=== PATIENT | female | born 1995 | race Asian ===

== ENCOUNTER 2023-12-11 07:54 | Inpatient (IN) ==
--- OUTSIDE RECORDS SUMMARY | 2023-12-11 08:34 | External Medical Summary ---
Author Name Unknown Address Unknown Organization [id number][facility] [address] [place] [address] Laboratory Report Ordering Provider Test Date Status RAMON LLOYD 11/21/2023 14:10:40 Final Observation Date Value Abnormality Reference (Units ) Status WBC, Total 11/21/2023 14:10:40 8.98 4.00-10.8 0 (K/uL) Final RBC 11/21/2023 14:10:40 4.23 3.85-5.15 (M/uL) Final Hemoglobin 11/21/2023 14:10:40 11.5 Below low normal 12 .0-15.3 (g/dL) Final HCT 11/21/2023 14:10:40 35.8 Below low normal 36. 0-45.2 (%) Final MCV 11/21/2023 14:10:40 84.6 81.5-97.5 (fL) Final MCH 11/21/2023 14:10:40 27.2 27.0-34.0 (pg) Final MCHC 11/21/2023 14:10:40 32.1 32.0-36.0 (g/dL) Final RDW 11/21/2023 14:10:40 19.7 11.5-15.5 (%) Final Platelets 11/21/2023 14:10:40 222 140-400 (K /uL) Final MPV 11/21/2023 14:10:40 11.3 6.6-11.1 ( fL) Final Per[facility] Location [facility] [address] [place] [address]
--- OUTSIDE RECORDS SUMMARY | 2023-12-11 08:34 | External Medical Summary ---
Author Name Unknown Address Unknown Organization : Laboratory Report Ordering Provider Test Date Status BRIDGETTE LLOYDJOSIANE 11/21/2023 14:10:40 Final Observation Date Value Abnormality Reference (Units ) Status Bile acid [Moles/volume] in Serum --fasting 11/21/2023 14:10:40 SEE BELOW Final TESTS--------- ----RESULTS--------UNITS--REF. RANGE---
Cholic Acid 0.5 umol/L < OR = 1.8
Deoxycholic Acid <0.5 umol/L < OR = 2.4
Chenodeoxycholic Acid <0.5 umol/L < OR = 3.1
Total Bile Acids <1.5 umol/L < OR = 6.8
This test was developed and its analytical
performance characteristics have been determined
by [employer] [facility]. It has not been cleared or
approved by FDA. This assay has been validated
pursuant to the CLIA regulations and is used for
clinical purposes.
Test performed by [facility]
[address],
[place] [address]

Water Main Installer Helper: Nini Fernnádez MD,PHD,SHIRAZ Performing Location
--- OUTSIDE RECORDS SUMMARY | 2023-12-11 08:34 | External Medical Summary ---
Author Name Unknown Address Unknown Organization [id number]:LABORATORY [facility] [address] - [address] [place] [address] Laboratory Report Ordering Provider Test Date Status RAMON LLOYD 11/21/2023 14:10:40 Final Observation Date Value Abnormality Reference (Units ) Status Albumin 11/21/2023 14:10:40 3.5 Below low normal 3.8-5.0 (g/dL) Final AST (Aspartate aminotransferase) 11/21/2023 14:10:40 16 10-35 (U/L) Final Alk Phos 11/21/2023 14:10:40 170 Above high normal 35-130 (U/L) Final ALT (Alanine aminotransferase) 11/21/2023 14:10:40 11 10-35 (U/L) Final Bilirubin, Total 11/21/2023 14:10:40 0.2 <=1.2 (mg/dL) Final Bilirubin, Direct 11/21/2023 14:10:40 <0.2 0.0-0.3 (mg/dL) Final Protein 11/21/2023 14:10:40 6.0 6.0-8.3 (g/dL) Final Performing Location [facility]ATORY [facility] [address] [place] [address]
--- OUTSIDE RECORDS SUMMARY | 2023-12-11 08:34 | External Medical Summary ---
Author Name Unknown Address Unknown Organization [id number]:[facility] [place] [address] [place] [address] Laboratory Report Ordering Provider Test Date Status JOSIE HUNT 11/07/2023 13:09:58 Final Observation Date Value Abnormality Reference (Units ) Status Folic Acid 11/07/2023 13:09:58 >20.0 >4.5 (ng/ mL) Final Performing Location [facility] [place] [address] [place] [address]
--- OUTSIDE RECORDS SUMMARY | 2023-12-11 08:34 | External Medical Summary ---
Author Name Unknown Address Unknown Organization [id number]:[facility] [place] [address] [place] [address] Laboratory Report Ordering Provider Test Date Status JOSIE HUNT 11/07/2023 13:09:58 Final Observation Date Value Abnormality Reference (Units ) Status Iron 11/07/2023 13:09:58 89 33-151 (ug/dL) Final Iron-binding capacity 11/07/2023 13:09:58 555 Above high normal 250-425 (ug/dL) Final Transferrin Sat % 11/07/2023 13:09:58 16 15-55 (%) Final Performing Location [facility] [place] [address] [place] [address]
--- OUTSIDE RECORDS SUMMARY | 2023-12-11 08:34 | External Medical Summary | Summary of Care ---
Author Name Unknown Organization [facility] Address [address] [place] [address] Phone [phone] Care Team Providers Care Paper Pattern Inspector Name Role Phone Wayne López MD Primary Care Provider [phone] Reason for Visit * Reason Comments Return Visit Encounter Details Date Type Department Care Team (Late st Contact Info) Description 11/07/2023 1:30 PM EDT Office Visit Gynecology/Obstetric s [place] [address] [place] [address] [facility]mitz CR[facility] [address] [facility] [address] Encounter for supervision of normal first in third trimester*; Antepartum anemia complicating ; Encounter for supervision of normal first in first trimester; Nausea and vomiting during Allergies Active Allergy Reactions Criticality Noted Date Comments Cheese 07/19/2019 Upset stomach, sleepy, low bp, itchy skin, rash on face, constipation, pale Garlic 07/19/2019 Rash, itchy, stomach upset documented as of this encounter (statuses as of 11/07/2023) Medications Medication Sig Dispensed Refills Start Date End Date Status KP Multivitamins 28-0.8 MG Oral Tablet Take by mouth. Active Breast Pump Dispense double electric breast pump. Dx:Z39.1 1 Each 10/24/2023 Active Promethazine HCl 25 MG Oral Tablet (Phenergan)Indicati ons:Encounter for supervision of normal first in first trimester,Nausea and vomiting during Take 1 Tablet by mouth every 6 hours as needed for Nausea. 30 Tablet 1 11/07/2023 Active Promethazine HCl 25 MG Oral Tablet (Phenergan)Indicati ons:Encounter for supervision of normal first in first trimester,Nausea and vomiting during Take 1 Tablet by mouth every 6 hours as needed for Nausea. 30 Tablet 1 09/12/2023 11/07/2023 Discontinue d(Refill) documented as of this encounter (statuses as of 11/07/2023) Active Problems Problem Noted Date Diagnosed Date Iron deficiency anemia 09/14/2023 Antepartum anemia complicating 024 Overview: Hgb 8.3 at 28w. Recommend iron infusions , normal first 05/24/2023 Alopecia areata 10/11/2020 Lactose intolerance 01/20/2020 Estimated Date of Delivery Comme nts Yes 12/05/2023 Based on last me nstrual period of 02/28/2023 documented as of this encounter (statuses as of 11/07/2023) Resolved Problems Problem Noted Date Diagnosed Date Resolved Date Choroid plexus cysts, , affecting care of mother, antepartum 08/01/2023 09/12/2023 Last Assessment & Plan: I reviewed the ultrasound with her. The anatomy that was visualized appears unremarkable and I did not see any choroid plexus cyst. The biometry is appropriate for the gestational age and the amniotic fluid volume is subjectively normal. The fetus is in the vertex presentation. I reviewed my interpretation of her ultrasound that she had a Radiology, as well as her low risk noninvasive screen. At this point, there is no clinical indication for return. Keratosis pilaris 01/20/2020 09/15/2020 documented as of this encounter (statuses as of 11/07/2023) Immunizations Name Administration Dates Next Due Covid-19 Ad26, Single Dose ([place]/J&J) 021 Seasonal Influenza Virus Vac cine, Unspecified Formulation 05/12/2020 Seasonal Influenza, PF, 6 M & above, IM , (FluLaval or Fluzone) 05/12/2020 TDAP (age 10 and older)(Boostrix) 09/12/2023 documented as of this encounter Social History Tobacco Use Types Packs/Day Years Used Date Smoking Tobacco: Never Smokeless Tobacco: Never Comments:no passive smoke Alcohol Use Standard Drinks/Week Comments Never 0 (1 standard drink = 0.6 oz pur e alcohol) AUDIT-C Answer Date Recorded Frequency of Alcohol Consumption Never 01/20/2020 Average Number of Drinks Not on file 020 Frequency of Binge Drinking Not on file 01/10 PHQ-2 Answer Date Recorded PHQ Adult Total Score 0 09/12/2023 Hunger Vital Sign Answer Date Recorded Within the past 12 months, y ou worried that your food would run out before you got the money to buy more. Never true 04/26/20 23 Within the past 12 months, t he food you bought just didn't last and you didn't have money to get more. Never true 04/26/2023 [place] Depression Scale Answer Date Recorded [place] Depression Scale Total 0 09/12/2023 The thought of harming myself has occurred to me . Never 09/12/2023 Estimated Date of Delivery Comme nts Yes 12/05/2023 Based on last me nstrual period of 02/28/2023 Sex and Gender Information Value Date Recorded Sex Assigned at Female 08/07/2019 4:39 PM EST Gender Identity Female 08/07/2019 4:39 PM EST Sexual Orientation Straight 08/07/2019 4: 39 PM EST Job Start Date Occupation Industry Not on file Not on file Not on file documented as of this encounter Last Filed Vital Signs Vital Sign Reading Time Taken Comments Blood Pressure 102/60 11/07/2023 1:15 PM EDT Pulse - - Temperature - - Respiratory Rate - - Oxygen Saturation - - Inhaled Oxygen Concentration - - Weight 64.9 kg (143 lb) 11/07/2023 1:15 PM EDT Height 157.5 cm (5' 2") 11/07/2023 1:15 PM EDT Body Mass Index 26.16 11/07/2023 1:15 PM EDT documented in this encounter Progress Notes * Mya Schmitz CRNP - 11/07/2023 1:40 PM EDT 36w Some BH contractions. Baby is moving well, discussed kick counts. No bleeding or LOF. GBS today. Clerical Adviser Documentation Provider requested rehab liaison. Name of rehab liaison: STORM Ceja documented in this encounter Plan of Treatment Upcoming Encounters Date Type Department Care Team (Late st Contact Info) Description 11/08/2023 9:30 AM EDT Pharmacy Pharmacy, [place] [address] [place] [address] Clinic, [facility] [address] [place] [address] 11/14/2023 1:30 PM EDT Office Visit Gynecology/Obstetrics [facility] [address] [place] [address] Mya Schmitz CRNP [address] [place] [address] 11/21/2023 1:30 PM EDT Office Visit Gynecology/Obstetrics [facility] [address] [place], [place] [address] Mya Schmitz CRNP [address] [place] [address] 11/28/2023 1:30 PM EDT Office Visit Gynecology/Obstetrics [facility] [address] [place] [address] Mya Schmitz CRNP [address] [place] [address] Pending Results Name Type Priority Associated Diagnoses Date /Time GROUP B STREP CULTURE/PCR Lab Routine Encounter for supervision of normal first in third trimester 11/07/2023 1:59 PM EDT Scheduled Orders Name Type Priority Associated Diagnoses Orde r Schedule GROUP B STREP CULTURE/PCR Lab Routine Encounter for supervision of normal first in third trimester Expected: 11/07/2023, Expires: 11/06/2024 Health Maintenance Due Date Last Done Comments Hepatitis B (1 of 3 - 19+ 3-dose series) 01/02/2012 COVID-19 Vaccine (2 - 2023-2 4 season) 2023 09/21/2020 Influenza Vaccine (FLU shot) (Season Ended) 2024 05/12/2020, 05/12/2020 Depression Screening 09/11/2024 09/12/2023 Pap Smear 04/26/2026 04/26/2023, 05/12/2020 Cervical Cancer Screening 04/26/2028 HPV/Co-Test 04/26/2028 04/26/2023 DTaP,Tdap,and Td Vaccines (2 - Td or Tdap) 09/11/2033 09/12/2023 GARDASIL-HPV IMMUNIZATION SERIES Aged Out No longer eligible b ased on patient's age to complete this topic MENINGOCOCCAL (MENACTRA/MENVEO) Aged Out No longer eligible b ased on patient's age to complete this topic Pneumococcal Vaccine: Pediatrics (0 to 5 Years) and At-Risk Patients (6 to 64 Years) Aged Out No longer eligible b ased on patient's age to complete this topic documented as of this encounter Medical Devices Not on filedocumented as of this encounter Visit Diagnoses Diagnosis Encounter for supervision of normal first in third trimester- Primary Supervision of normal first Antepartum anemia complicating Anemia, antepartum Encounter for supervision of normal first in first trimester Supervision of normal first Nausea and vomiting during documented in this encounter Care Teams Paper Pattern Inspector Relationship Specialty Start Date End Date Wayne López MD [address] [place] [address] PCP - General Family Medicine 10/11/20 documented as of this encounter
--- OUTSIDE RECORDS SUMMARY | 2023-12-11 08:34 | External Medical Summary ---
Author Name Unknown Address Unknown Organization [id number]:LABORATORY [facility] [place] - [address] [place] [address] Laboratory Report Ordering Provider Test Date Status JOSIE HUNT 11/07/2023 13:09:58 Final Observation Date Value Abnormality Reference (Units ) Status Vitamin B12 11/07/2023 13:09:58 198 Below low normal 2 32-1245 (pg/mL) Final Performing Location [facility] - [address] [place] [address]
--- OUTSIDE RECORDS SUMMARY | 2023-12-11 08:34 | External Medical Summary ---
Author Name Unknown Address Unknown Organization K01:LABORATORY [facility] - [address] [facility] [address] Laboratory Report Ordering Provider Test Date Status JOSIE HUNT 11/07/2023 13:09:58 Final Observation Date Value Abnormality Reference (Units ) Status SYNC LEUKOCYTES IN BLOOD BY AUTOMATED COUNT 11/07/2023 13:09:58 8.92 4.00-10.80 (K/uL) Final Segs 11/07/2023 13:09:58 67.9 40.0-75.0 (%) Final Lymphs % 11/07/2023 13:09:58 22.4 18.0-42.0 (%) Final Monos 11/07/2023 13:09:58 7.2 1.0-11.0 (%) Final Eosinophils 11/07/2023 13:09:58 1.2 0.0-6.0 (%) Final Basos 11/07/2023 13:09:58 0.3 0.0-2.0 (%) Final Immature Granulocyte, Percent 11/07/2023 13:09:58 1.0 0.0-2.0 (%) Final Absolute Segs 11/07/2023 13:09:58 6.05 1.80-7.70 (K/uL) Final Lymphs, absolute 11/07/2023 13:09:58 2.00 1.00-4.80 (K/ul) Final Monos, Abs 11/07/2023 13:09:58 0.64 0.00-1.10 (K/uL) Final Eos, Abs 11/07/2023 13:09:58 0.11 0.00-0.70 (K/uL) Final Basos, Abs 11/07/2023 13:09:58 0.03 0.00-0.20 (K/uL) Final Immature Granulocytes, Number 11/07/2023 13:09:58 0.09 0.00-0.20 (K/uL) Final Performing Location LABORATORY [facility] [place] - [address] [facility] [address]
--- OUTSIDE RECORDS SUMMARY | 2023-12-11 08:34 | External Medical Summary | Summary of Care ---
Author Name Unknown Organization [facility] Address [address] [place] [address] Phone [phone] Care Team Providers Care Account Management Specialist Name Role Phone Wayne López MD Primary Care Provider [phone] Reason for Visit * Reason Comments Outpatient Testing Encounter Details Date Type Department Care Team (Late st Contact Info) Description 11/21/2023 2:10 PM EDT Laboratory Laboratory, [facility] [address] [place] [address] [facility] [address] [place] [address] Pruritus Allergies Active Allergy Reactions Criticality Noted Date Comments Cheese 07/19/2019 Upset stomach, sleepy, low bp, itchy skin, rash on face, constipation, pale Garlic 07/19/2019 Rash, itchy, stomach upset documented as of this encounter (statuses as of 11/21/2023) Medications Medication Sig Dispensed Refills Start Date End Date Status Multivitamins 28-0.8 MG Oral Tablet Take by mouth. Activ e Breast Pump Dispense double electric breast pump. Dx:Z39.1 1 Each 10/24/2023 Active Promethazine HCl 25 MG Oral Tablet (Phenergan)Indications :Encounter for supervision of normal first in first trimester,Nausea and vomiting during Take 1 Tablet by mouth every 6 hours as needed for Nausea. 30 Tablet 1 11/07/2023 Active documented as of this encounter (statuses as of 11/21/2023) Active Problems Problem Noted Date Diagnosed Date Iron deficiency anemia 09/14/2023 Antepartum anemia complicating 024 Overview: Hgb 8.3 at 28w. Recommend iron infusions , normal first 05/24/2023 Alopecia areata 10/11/2020 Lactose intolerance 01/20/2020 Estimated Date of Delivery Comme nts Yes 12/05/2023 Based on last me nstrual period of 02/28/2023 documented as of this encounter (statuses as of 11/21/2023) Resolved Problems Problem Noted Date Diagnosed Date [...] as of this encounter (statuses as of 11/21/2023) Immunizations Name Administration Dates Next Due Covid-19 [...] money to get more. Never true 04/26/2023 [place] Depression Scale Answer Date Recorded [place] Depression Scale Total 0 09/12/2023 The thought [...] on file documented as of this encounter Plan of Treatment Upcoming Encounters Date Type Department Care Team (Late st Contact Info) Description 11/28/2023 10:15 AM EDT Office Visit Gynecology/Obstetrics [facility] [address] [place] [address] Mya Schmitz CRNP [address] [place] [address] Pending Results Name Type Priority Associated Diagnoses Date /Time BILE ACIDS, FRACTIONATED AND TOTAL Lab Routine Pruritus 11/21/2023 2:10 PM EDT HEPATIC FUNCTION PANEL Lab Routine Pruritus 11/21/2023 2:10 PM EDT Health Maintenance Due Date Last Done Comments Hepatitis B (1 of 3 - 19+ 3-dose series) 01/02/2012 COVID-19 Vaccine ( - 2022-2 4 season) 2023 09/21/2020 Influenza Vaccine (FLU [...] Not on filedocumented as of this encounter Procedures Procedure Name Priority Date/Time Associated Diagnosis Comments CBC Routine 11/21/2023 2:10 PM EDT Pruritus documented in this encounter Results * (ABNORMAL) CBC (11/21/2023 2:10 PM EDT) WBC 8.98 4.00 - 10.80 K/uL 11/21/2023 2:18 PM EDT LABORATORY [place] [facility] RBC 4.23 3.85 - 5.15 M/uL 11/21/2023 2:18 PM EDT LABORATORY [place] 57-10 HGB 11.5(L) 12.0 - 15.3 g/dL 11/21/2023 2:18 PM EDT LABORATORY [place] [facility] HCT 35.8(L) 36.0 - 45.2 % 11/21/2023 2:18 PM EDT LABORATORY [place] [address] MCV 84.6 81.5 - 97.5 fL 11/21/2023 2:18 PM EDT LABORATORY [place] [facility] MCH 27.2 27.0 - 34.0 pg 11/21/2023 2:18 PM EDT LABORATORY [place] [facility] MCHC 32.1 32.0 - 36.0 g/dL 11/21/2023 2:18 PM EDT LABORATORY [place] [facility] RDW 19.7 11.5 - 15.5 % 11/21/2023 2:18 PM EDT LABORATORY [place] [facility] PLT 222 140 - 400 K/uL 11/21/2023 2:18 PM EDT LABORATORY [place] [facility] MPV 11.3 6.6 - 11.1 fL 11/21/2023 2:18 PM EDT LABORATORY [place] [facility]10 Blood Venous blood specimen / Unknown Venipuncture / Unknown 11/21/2023 2:10 PM EDT 11/21/2023 2:10 PM EDT Mya INMAN LAB BLOOD ORDERABLES LAB[facility]ATORY [facility] [address] [place] [address] documented in this encounter Visit Diagnoses Diagnosis Pruritus Unspecified pruritic disorder documented in this encounter Care Teams Account Management Specialist Relationship Specialty Start Date End Date Wayne López MD [address] [place] [address] PCP - General Family Medicine 10/11/20 documented as of this encounter
--- OUTSIDE RECORDS SUMMARY | 2023-12-11 08:34 | External Medical Summary | Summary of Care ---
Author Name Unknown Organization [facility] Address [address] [place] [address] Phone [phone] Care Team Providers Care Exhibition Organiser Name Role Phone Wayne López MD Primary Care Provider [phone] Reason for Visit * Reason Comments Return Visit Encounter Details Date Type Department Care Team (Late st Contact Info) Description 12/06/2023 1:45 PM EDT Office Visit Gynecology/Obstetric s [place] [address] [facility] [place] [address] Kimmy Mcdonald CRNP [address] [place] [address] Encounter for supervision of normal first in third trimester*; Antepartum anemia complicating Allergies Active Allergy Reactions Criticality Noted Date Comments Cheese 07/19/2019 Upset stomach, sleepy, low bp, itchy skin, rash on face, constipation, pale Garlic 07/19/2019 Rash, itchy, stomach upset documented as of this encounter (statuses as of 12/06/2023) Medications Medication Sig Dispensed Refills Start Date [...] for Nausea. 30 Tablet 1 11/07/2023 Active hydrOXYzine HCl 10 MG Oral Tablet (Atarax) Take 1 Tablet by mouth every night at bedtime. 20 Tablet 11/30/2023 Active Vitamin B-12 1000 MCG Oral Tablet (Cyanocobalamin) Take 1 Tablet by mouth in the morning. 90 Tablet 1 11/30/2023 Active documented as of this encounter (statuses as of 12/06/2023) Active Problems Problem Noted Date Diagnosed Date Iron deficiency anemia 09/14/2023 Antepartum anemia complicating 024 Overview: Hgb 8.3 at 28w. Recommend iron infusions , normal first 05/24/2023 Alopecia areata 10/11/2020 Lactose intolerance 01/20/2020 Estimated Date of Delivery Comme nts Yes 12/05/2023 Based on last me nstrual period of 02/28/2023 documented as of this encounter (statuses as of 12/06/2023) Resolved Problems Problem Noted Date Diagnosed Date [...] as of this encounter (statuses as of 12/06/2023) Immunizations Name Administration Dates Next Due Covid-19 [...] money to get more. Never true 04/26/2023 [place] Depression Scale Answer Date Recorded [place] Depression Scale Total 0 09/12/2023 The thought of harming myself has occurred to me . Never 09/12/2023 Childcare Answer Date Recorded Do you feel overwhelmed with taking care of a child, family member or friend? No 04/26/2023 Does your family need help f inding childcare? (Household - for ages 0-17 years) Not on file 04/26/2023 Clothing Answer Date Recorded Have you been unable to get clothing when it was really needed? No 04/26/2023 Is your family able to get c lothes or diapers when needed? (Household - for ages 0-17 years) Not on file 04/26/2023 Personal Safety Answer Date Recorded Do you feel unsafe or have concerns for your saf ety? No 04/26/2023 Do you have concerns for you r family's safety? (Household - for ages 0-17 years) Not on file 04/26/2023 Utilities Answer Date Recorded Do you have trouble paying y our heating, water, or electric bill? No 04/26/2023 Is your family able to pay t he heat, water, or electric bill? (Household - for ages 0-17 years) Not on file 04/26/2023 Does your family have access to good internet? (Household - for ages 0-17 years) Not on file 04/26/2023 Employment Status Answer Date Recorded Are you unemployed or without regular income? No 04/26/2023 Does the household have a re gular source of income? (Household - for ages 0-17 years) Not on file 04/26/2023 Social Connections Answer Date Recorded How often do you feel lonely or isolated from th ose around you? Never 04/26/2023 Financial Resource Strain Answer Date R ecorded Do you have any trouble payi ng for your medications, or do you think you might in the future? No 04/26/2023 Does your family have troubl e paying for medicine? (Household - for ages 0-17 years) Not on file 04/26/2023 Transportation Needs Answer Date Record ed READ ONLY Do you have troubl e getting a ride to medical visits or work? Never True 04/26/2023 Does your family have a hard time getting a ride to doctors visits? (Household - for ages 0-17 years) Not on file 04/26/2023 Has lack of transportation k ept you from medical appointments, meetings, work, or from getting things needed for daily living? Check all that apply. (Adult - for ages 18 years and over) Not on file 04/26/2023 Do you (or your family) have trouble finding or paying for a ride (transportation)? (Household - for ages 0-17 years) Not on file 04/26/2023 Housing Stability Answer Date Recorded Do you currently live in a s helter or have no steady place to sleep at night? No 04/26/2023 READ ONLY Do you think you a re at risk of becoming homeless? No 04/26/2023 Does your family worry about paying for your home or becoming homeless? (Household - for ages 0-17 years) Not on file 1 06/26/2022 Are you homeless or worried that you might be in the future? (Adult - for ages 18 years and over) Not on file Are you (or your family) mary jo eless or worried that you might be in the future? (Household - for ages 0-17 years) Not on file Food Insecurity Answer Date Recorded Do you need food for this week? No 04/26/2023 Are you able to get enough f ood for your family? (Household - for ages 0-17 years) Not on file 04/26/2023 Does your family need food t his week? (Household - for ages 0-17 years) Not on file 04/26/2023 Do you always have enough fo od for your family? (Household - for ages 0-17 years) Not on file 04/26/2023 Estimated Date of Delivery Comme nts Yes [...] Reading Time Taken Comments Blood Pressure 102/60 12/06/2023 1:40 PM EDT Pulse - - Temperature - - Respiratory Rate - - Oxygen Saturation - - Inhaled Oxygen Concentration - - Weight 65.7 kg (144 lb 12.8 oz) 12/06/2023 1:40 PM EDT Height - - Body Mass Index 26.48 11/21/2023 1:24 PM EDT documented in this encounter Progress Notes * Kimmy Mcdonald CRNP - 12/06/2023 1:32 PM EDT 40w1d Baby moving well. Some irregular cramping. No leaking fluid or bleeding. FH consistently 38 cm x3 visits - will get growth scan today. Reviewed labor induction process. Induction is scheduled 12/10. Return prn. STORM Lawrence documented in this encounter Plan of Treatment Upcoming Encounters Date Type Department Care Team (Late st Contact Info) Description 12/06/2023 3:00 PM EDT Imaging Radiology [address] [place] [address] Encounter for supervision of normal first in third trimester Scheduled Orders Name Type Priority Associated Diagnoses Orde r Schedule US PREG FOLLOW-UP EACH FETUS Medical Imaging Routine Encounter for supervision of normal first in third trimester Expected: 12/06/2023, Expires: 01/04/2025 Health Maintenance Due Date Last Done Comments Hepatitis B (1 of 3 - 19+ 3-dose series) 01/02/2012 COVID-19 Vaccine (2 - 2022-2 4 season) 2023 09/21/2020 Influenza [...] supervision of normal first in third trimester Supervision of normal first documented in this encounter Care Teams Exhibition Organiser Relationship Specialty Start Date End Date Wayne López MD [address] [place] [address] PCP - General Family Medicine 10/11/20 documented as of this encounter
--- OUTSIDE RECORDS SUMMARY | 2023-12-11 08:34 | External Medical Summary | Summary of Care ---
Author Name Unknown Organization [facility] Address [address] [place] [address] Phone [phone] Care Team Providers Care Radiographic Technologist Name Role Phone Wayne López MD Primary Care Provider [phone] Reason for Visit * Reason Comments Return Visit Encounter Details Date Type Department Care Team (Late st Contact Info) Description 11/28/2023 10:15 AM EDT Office Visit Gynecology/Obstetric s [place] [address] [facility] [place] [address] Mya Schmitz CRNP [address] [facility] [place] [address] Encounter for supervision of normal first in third trimester*; Antepartum anemia complicating Allergies Active Allergy Reactions Criticality Noted Date Comments Cheese 07/19/2019 Upset stomach, sleepy, low bp, itchy skin, rash on face, constipation, pale Garlic 07/19/2019 Rash, itchy, stomach upset documented as of this encounter (statuses as of 11/28/2023) Medications Medication Sig Dispensed Refills Start Date [...] as of this encounter (statuses as of 11/28/2023) Active Problems Problem Noted Date Diagnosed Date Iron deficiency anemia 09/14/2023 Antepartum anemia complicating 024 Overview: Hgb 8.3 at 28w. Recommend iron infusions , normal first 05/24/2023 Alopecia areata 10/11/2020 Lactose intolerance 01/20/2020 Estimated Date of Delivery Comme nts Yes 12/05/2023 Based on last me nstrual period of 02/28/2023 documented as of this encounter (statuses as of 11/28/2023) Resolved Problems Problem Noted Date Diagnosed Date [...] as of this encounter (statuses as of 11/28/2023) Immunizations Name Administration Dates Next Due Covid-19 [...] money to get more. Never true 04/26/2023 [place] Depression Scale Answer Date Recorded [place] Depression Scale Total 0 09/12/2023 The thought [...] Sign Reading Time Taken Comments Blood Pressure 100/62 11/28/2023 10:13 AM EDT Pulse - - Temperature - - Respiratory Rate - - Oxygen Saturation - - Inhaled Oxygen Concentration - - Weight 65.3 kg (144 lb) 11/28/2023 10:13 AM EDT Height - - Body Mass Index 26.34 11/21/2023 1:24 PM EDT documented in this encounter Progress Notes * Mya Schmitz CRNP - 11/28/2023 10:37 AM EDT 39w Having some discomfort at pubic symphysis with walking. PUPPS rash on belly. Hydrocortisone helps. Baby is active. Denies contractions, bleeding, LOF. STORM Romero * Carolyne Perez LPN - 11/28/2023 10:13 AM EDT Pt is currently 39w0d with an Estimated Date of Delivery: 12/05/23 - documented in this encounter Plan of Treatment Upcoming Encounters Date Type Department Care Team (Late st Contact Info) Description 12/06/2023 1:45 PM EDT Office Visit Gynecology/Obstetrics [place] [address] [place] [address] Kimmy Mcdonald CRNP [address] [place] [address] Health Maintenance Due Date Last Done Comments Hepatitis B (1 of 3 - 19+ 3-dose series) 01/02/2012 COVID-19 Vaccine (2022-2 4 season) 2023 09/21/2020 Influenza Vaccine (FLU [...] normal first Antepartum anemia complicating Anemia, antepartum documented in this encounter Care Teams Radiographic Technologist Relationship Specialty Start Date End Date Wayne López MD [address] [place] [address] PCP - General Family Medicine 10/11/20 documented as of this encounter
--- OUTSIDE RECORDS SUMMARY | 2023-12-11 08:34 | External Medical Summary ---
Author Name Unknown Address Unknown Organization K01:[facility] [place] [address] [place] [address] Laboratory Report Ordering Provider Test Date Status RAMON LLOYD 11/07/2023 13:59:12 Final Observation Date Value Abnormality Reference (Units ) Status Streptococcus agalactiae DNA [Presence] in Specimen by NORBERT with probe detection 11/07/2023 13:59:12 Negative Negative Final No Group B Streptococcus det ected by culture-enhanced PCR (amplified probe). GBS GBSCT - [facility] 11/07/2023 13:59:12 0.0 Final GBS SPCCT - [facility] 11/07/2023 13:59:12 29.6 Final Performing Location [facility] [address] [place] [address]
--- OUTSIDE RECORDS SUMMARY | 2023-12-11 08:34 | External Medical Summary | Summary of Care ---
Author Name Unknown Organization [facility] Address [address] [place] [address] Phone [phone] Care Team Providers Care Chief Engineer'S Helper Name Role Phone Wayne López MD Primary Care Provider [phone] Reason for Visit * Reason Comments Outpatient Testing Encounter Details Date Type Department Care Team (Late st Contact Info) Description 11/07/2023 1:10 PM EDT Laboratory Laboratory, [facility] [address] [place] [address] [facility] [address] [place] [address] Iron deficiency anemia, unspecified iron deficiency anemia type Allergies Active Allergy Reactions Criticality Noted Date [...] money to get more. Never true 04/26/2023 [place] Depression Scale Answer Date Recorded [place] Depression Scale Total 0 09/12/2023 The thought [...] Description 11/08/2023 9:30 AM EDT Pharmacy Pharmacy, [place] [address] [place] [address] Clinic, [place] [address] [place] [address] 11/14/2023 1:30 PM EDT Office Visit Gynecology[facility]Obstetrics [facility] [address] [place] [address] Mya Schmitz CRNP [address] [place] [address] 11/21/2023 1:30 PM EDT Office Visit [facility]cology[facility] [address] [place] [address] Mya Schmitz CRNP [address] [place] [address] 11/28/2023 1:30 PM EDT Office Visit Gynecology/Obstetrics [facility] [address] [place] [address] Mya Schmitz CRNP [address] [place] [address] Pending Results Name Type Priority Associated Diagnoses Date /Time CBC WITH WBC DIFFERENTIAL Lab Routine Iron deficiency anemia, unspecified iron deficiency anemia type 11/07/2023 1:09 PM EDT IRON SCREEN, INCLUDING TIBC Lab Routine Iron deficiency anemia, unspecified iron deficiency anemia type 11/07/2023 1:09 PM EDT FERRITIN Lab Routine Iron deficiency anemia, unspecified iron deficiency anemia type 11/07/2023 1:09 PM EDT RETICULOCYTE PANEL Lab Routine Iron deficiency anemia, unspecified iron deficiency anemia type 11/07/2023 1:09 PM EDT VITAMIN B12 Lab Routine Iron deficiency anemia, unspecified iron deficiency anemia type 11/07/2023 1:09 PM EDT FOLIC ACID Lab Routine Iron deficiency anemia, unspecified iron deficiency anemia type 11/07/2023 1:09 PM EDT CBC Lab Routine Iron deficiency anemia, unspecified iron deficiency anemia type 11/07/2023 1:09 PM EDT DIFFERENTIAL, AUTOMATED Lab Routine Iron deficiency anemia, unspecified iron deficiency anemia type 11/07/2023 1:09 PM EDT Health Maintenance Due Date Last [...] as of this encounter Visit Diagnoses Diagnosis Iron deficiency anemia, unspecified iron deficiency anemia type documented in this encounter Care Teams Chief Engineer'S Helper Relationship Specialty Start Date End Date Wayne López MD [address] [place] [address] PCP - General Family Medicine 10/11/20 documented as of this encounter
--- OUTSIDE RECORDS SUMMARY | 2023-12-11 08:34 | External Medical Summary ---
Author Name Unknown Address Unknown Organization [id number]:[facility] - [address] [place] [address] Laboratory Report Ordering Provider Test Date Status JOSIE HUNT 11/07/2023 13:09:58 Final Observation Date Value Abnormality Reference (Units ) Status Ferritin 11/07/2023 13:09:58 55 13-150 (ng /mL) Final Performing Location [facility] - [address] [place] [address]
--- OUTSIDE RECORDS SUMMARY | 2023-12-11 08:34 | External Medical Summary | Summary of Care ---
Author Name Unknown Organization [facility] Address [address] [place] [address] Phone [phone] Care Team Providers Care Electrical Appliance Servicer Name Role Phone Wayne López MD Primary Care Provider [phone] [phone] Encounter Details Date Type Department Care Team (Late st Contact Info) Description 11/30/2023 Telephone Gynecology/Obstetrics [facility] [address] [place] [address] Magy Greene MD [address] [place] [address] Allergies Active Allergy Reactions Criticality Noted Date Comments Cheese 07/19/2019 Upset stomach, sleepy, low bp, itchy skin, rash on face, constipation, pale Garlic 07/19/2019 Rash, itchy, stomach upset documented as of this encounter (statuses as of 11/30/2023) Medications Medication Sig Dispensed Refills Start Date [...] night at bedtime. 20 Tablet 11/30/2023 Active documented as of this encounter (statuses as of 11/30/2023) Active Problems Problem Noted Date Diagnosed Date Iron deficiency anemia 09/14/2023 Antepartum anemia complicating 024 Overview: Hgb 8.3 at 28w. Recommend iron infusions , normal first 05/24/2023 Alopecia areata 10/11/2020 Lactose intolerance 01/20/2020 Estimated Date of Delivery Comme nts Yes 12/05/2023 Based on last me nstrual period of 02/28/2023 documented as of this encounter (statuses as of 11/30/2023) Resolved Problems Problem Noted Date Diagnosed Date [...] as of this encounter (statuses as of 11/30/2023) Immunizations Name Administration Dates Next Due Covid-19 [...] money to get more. Never true 04/26/2023 [place] Depression Scale Answer Date Recorded [place] Depression Scale Total 0 09/12/2023 The thought [...] on file documented as of this encounter Miscellaneous Notes * Telephone Encounter - Carolyne Perez LPN - 11/30/2023 10:08 AM EDT Patient notified, will try this and if no relief we will continue to check for openings for sooner IOL, 12/10 is current first available. * Telephone Encounter - Magy Greene MD - 11/30/2023 10:02 AM EDT Has she tried Zyrtec? She may buy it OTC I can Rx Atrax for night, may make her sleepy Can we move her IOL for an earlier date? Thanks * Telephone Encounter - Carolyne Perez LPN - 11/30/2023 9:18 AM EDT Pt is currently 39w2d with an Estimated Date of Delivery: 12/05/23 - Patients spouse called stating patient had a hard night with the severe itching she is experiencing. They have been doing hydrocortisone, lotions, tried coconut oil, cool compresses to hands and feetwith little relief. Hepatic function completed but still waiting on patients bile acids to result. Advised to try benadryl and continue comfort measures. Currently scheduled for IOL 12/10. Will have Dr. Head supervisor air conditioning installer review for any further recommendations. documented in this encounter Plan of Treatment Upcoming Encounters Date Type Department Care Team (Late st Contact Info) Description 12/06/2023 1:45 PM EDT Office Visit Gynecology/Obstetrics [address] [place] [address] BackerKimmy CRNP [address] [place] [address] Health Maintenance Due Date Last Done Comments [...] Not on filedocumented as of this encounter Care Teams Electrical Appliance Servicer Relationship Specialty Start Date End Date Wayne López MD [address] [place] [address] PCP - General Family Medicine 10/11/20 documented as of this encounter
--- OUTSIDE RECORDS SUMMARY | 2023-12-11 08:34 | External Medical Summary | Summary of Care ---
Author Name Unknown Organization [facility] Address [address] [place] [address] Phone [phone] Care Team Providers Care Television Repair Teacher Name Role Phone Wayne López MD Primary Care Provider [phone] Reason for Visit * Reason Onset Date Comments Anemia Follow-Up 11/30/2023 Encounter Details Date Type Department Care Team (Late st Contact Info) Description 11/08/2023 9:30 AM EDT Pharmacy Pharmacy, [place] [address] [place], [place] [id number] Clinic, [facility] [address] [place] [address] Iron deficiency anemia, unspecified iron deficiency anemia type* Allergies Active Allergy Reactions Criticality Noted Date [...] for Nausea. 30 Tablet 1 11/07/2023 Active Vitamin B-12 1000 MCG Oral Tablet [...] Average Number of Drinks Not on file 08/10/2 020 Frequency of Binge Drinking Not on [...] money to get more. Never true 04/26/2023 [place] Depression Scale Answer Date Recorded [place] Depression Scale Total 0 09/12/2023 The thought [...] on file documented as of this encounter Progress Notes * Ana Lilia Moore RP - 11/30/2023 11:52 AM EDT Patient Phone Numbers Called patient to review labs from 11/06 and 11/20. GA: 39w2d Estimated Date of Delivery: 12/05/23 Hgb: 11.5 g/dL TSAT: 16 % Ferritin: 55 ng/mL B12: 198 pg/mL FA: >20.0 ng/mL Patient is s/p Venofer 300mg IV x 3 on 09/18, 09/25, and 10/02. Hgb is below target range for the third trimester, but marked improvement. Iron studies within target range. Patient reports feeling fine, and otherwise denies signs/symptoms of anemia. Plan: B12 1000mcg daily sent to [facility] at pt request. Anemia Clinic will sign off at this time. Thank you for allowing us to participate in the care of this patient. Thanks, Ana Lilia Moore [facility] Clinical Pharmacist [facility] Anemia Clinic (P: [phone]) 11/30/2023 11:55 AM documented in this encounter Plan of Treatment Upcoming Encounters Date Type Department Care Team (Late st Contact Info) Description 12/06/2023 1:45 PM EDT Office Visit Gynecology/Obstetric[facility] [address] [place] [address] Kimmy Mcdonald CRNP [address] [place] [address] Health Maintenance Due Date Last Done Comments [...] Iron deficiency anemia, unspecified iron deficiency anemia type- Primary documented in this encounter Care Teams Television Repair Teacher Relationship Specialty Start Date End Date Wayne López MD [address] [place] [address] PCP - General Family Medicine 10/11/20 documented as of this encounter
--- OUTSIDE RECORDS SUMMARY | 2023-12-11 08:34 | External Medical Summary ---
Author Name Unknown Address Unknown Organization K01:[facility] - [facility] [address] [facility] [address] Laboratory Report Ordering Provider Test Date Status JOSIE HUNT 11/07/2023 13:09:58 Final Observation Date Value Abnormality Reference (Units ) Status WBC, Total 11/07/2023 13:09:58 8.92 4.00-10.80 (K/uL) Final RBC 11/07/2023 13:09:58 4.15 3.85-5.15 (M/uL) Final Hemoglobin 11/07/2023 13:09:58 11.0 Below low normal 12.0-15.3 (g/dL) Final HCT 11/07/2023 13:09:58 36.8 36.0-45.2 (%) Final MCV 11/07/2023 13:09:58 88.7 81.5-97.5 (fL) Final MCH 11/07/2023 13:09:58 26.5 27.0-34.0 (pg) Final MCHC 11/07/2023 13:09:58 29.9 32.0-36.0 (g/dL) Final RDW 11/07/2023 13:09:58 21.4 11.5-15.5 (%) Final Platelets 11/07/2023 13:09:58 236 140-400 (K/uL) Final MPV 11/07/2023 13:09:58 12.1 6.6-11.1 (fL) Final Nucleated erythrocytes/100 leukocytes [Ratio] in Blood by Automated count 11/07/2023 13:09:58 0 <=0 (/100 WBCs) Final Performing Location [facility] - [address] [place] [address]
--- OUTSIDE RECORDS SUMMARY | 2023-12-11 08:34 | External Medical Summary | Summary of Care ---
Author Name Unknown Organization [facility] Address [address] [place] [address] Phone [phone] Care Team Providers Care Director Of Operations Home Health Name Role Phone Wayne López MD Primary Care Provider [phone] Reason for Visit * Reason Comments Return Visit Encounter Details Date Type Department Care Team (Late st Contact Info) Description 11/07/2023 1:30 PM EDT Office Visit Gynecology/Obst[place] s [place] [address] [place] [address] Mya Schmitz CRNP [address] [facility] [address] Encounter for supervision of normal first in [...] money to get more. Never true 04/26/2023 [place] Depression Scale Answer Date Recorded [place] Depression Scale Total 0 09/12/2023 The thought [...] counts. No bleeding or LOF. GBS today. Manager Dairy Documentation Provider requested circus roustabout. Name of circus roustabout: STORM Ceja documented in this encounter Plan of Treatment Upcoming Encounters Date Type Department Care Team (Late st Contact Info) Description 11/08/2023 9:30 AM EDT Pharmacy Pharmacy, [place] [address] [place] [address] Clinic, [facility] [address] [place] [address] 11/14/2023 1:30 PM EDT Office Visit Gynecology/Obstetrics [facility] [address] [place] [address] Mya Schmitz CRNP [address] [place] [address] 11/21/2023 1:30 PM EDT Office Visit Gynecology/Obstetrics [facility] [address] [place], [place] [address] Mya Schmitz CRNP [address] [place] [address] 11/28/2023 1:30 PM EDT Office Visit Gynecology/Obstetrics [facility] [address] [place] [address] Mya Schmitz CRNP [address] [place] [address] Pending Results Name Type Priority Associated Diagnoses [...] during documented in this encounter Care Teams Director Of Operations Home Health Relationship Specialty Start Date End Date Wayne López MD [address] [place] [address] PCP - General Family Medicine 10/11/20 documented as of this encounter
--- OUTSIDE RECORDS SUMMARY | 2023-12-11 08:34 | External Medical Summary | Summary of Care ---
Author Name Unknown Organization [facility] Address [address] [place] [address] Phone [phone] Care Team Providers Care Knitting Machine Operator Helper Name Role Phone Wayne López MD Primary Care Provider [phone] [phone] Reason for Visit * Reason Comments Return Visit Encounter Details Date Type Department Care Team (Late st Contact Info) Description 11/21/2023 1:30 PM EDT Office Visit Gynecology/Obstetric s [place] [address] [facility] [place] [address] Mya Schmitz CRNP [address] [facility] [place] [address] Encounter for supervision of normal first in third trimester*; Antepartum anemia complicating ; Pruritus Allergies Active Allergy Reactions Criticality Noted [...] money to get more. Never true 04/26/2023 [place] Depression Scale Answer Date Recorded [place] Depression Scale Total 0 09/12/2023 The thought [...] Sign Reading Time Taken Comments Blood Pressure 106/64 11/21/2023 1:24 PM EDT Pulse - - Temperature - - Respiratory Rate - - Oxygen Saturation - - Inhaled Oxygen Concentration - - Weight 65.3 kg (144 lb) 11/21/2023 1:24 PM EDT Height 157.5 cm (5' 2") 11/21/2023 1:24 PM EDT Body Mass Index 26.34 11/21/2023 1:24 PM EDT documented in this encounter Progress Notes * Mya Schmitz CRNP - 11/21/2023 1:52 PM EDT 38w Reports itching on the tops and sides of hands since yesterday, as well as belly. No itching on palms or on soles of feet. Will get labs for ICP regardless. No other concerns. Baby is active. Denies contractions, bleeding, LOF. STORM Romero documented in this encounter Nursing Notes * Kimmie Fajardo LPN - 11/21/2023 1:27 PM EDT 38w0d Itchy in hands and lower stomach. documented in this encounter Plan of Treatment Upcoming Encounters Date Type Department Care Team (Late st Contact Info) Description 11/21/2023 2:10 PM EDT Laboratory [facility], [facility] [place] [id number] [facility] 132 [facility] [place] [address] Pruritus 11/28/2023 10:15 AM EDT Office Visit Gynecology/Obstetrics [facility] [address] [place] [address] [facility] [place] [address] Scheduled Orders Name Type Priority Associated Diagnoses Orde r Schedule BILE ACIDS, FRACTIONATED AND TOTAL Lab Routine Pruritus Expected: 11/21/2023, Expires: 11/20/2024 CBC Lab Routine Pruritus Expected: 11/21/2023 (Approximate), Expires: 11/20/2024 HEPATIC FUNCTION PANEL Lab Routine Pruritus Expected: 11/21/2023, Expires: 11/20/2024 Health Maintenance Due Date Last Done Comments [...] normal first Antepartum anemia complicating Anemia, antepartum Pruritus Unspecified pruritic disorder Pruritus Unspecified pruritic disorder documented in this encounter Care Teams Knitting Machine Operator Helper Relationship Specialty Start Date End Date Wayne López MD [address] [place] [address] PCP - General Family Medicine 10/11/20 documented as of this encounter
--- OUTSIDE RECORDS SUMMARY | 2023-12-11 08:34 | External Medical Summary | Summary of Care ---
Author Name Unknown Organization [facility] Address [address] [place] [address] Phone [phone] Care Team Providers Care Warehouse Checker Name Role Phone Wayne López MD Primary Care Provider [phone] Reason for Visit * Reason Comments Return Visit Encounter Details Date Type Department Care Team (Late st Contact Info) Description 11/14/2023 1:30 PM EDT Office Visit Gynecology/Obstetric s [place] [address] [facility] [place] [address] Mya Schmitz CRNP [address] [facility] [place] [address] Encounter for supervision of normal first in third trimester*; Antepartum anemia complicating Allergies Active Allergy Reactions Criticality Noted Date Comments Cheese 07/19/2019 Upset stomach, sleepy, low bp, itchy skin, rash on face, constipation, pale Garlic 07/19/2019 Rash, itchy, stomach upset documented as of this encounter (statuses as of 11/14/2023) Medications Medication Sig Dispensed Refills Start Date [...] as of this encounter (statuses as of 11/14/2023) Active Problems Problem Noted Date Diagnosed Date Iron deficiency anemia 09/14/2023 Antepartum anemia complicating 024 Overview: Hgb 8.3 at 28w. Recommend iron infusions , normal first 05/24/2023 Alopecia areata 10/11/2020 Lactose intolerance 01/20/2020 Estimated Date of Delivery Comme nts Yes 12/05/2023 Based on last me nstrual period of 02/28/2023 documented as of this encounter (statuses as of 11/14/2023) Resolved Problems Problem Noted Date Diagnosed Date [...] as of this encounter (statuses as of 11/14/2023) Immunizations Name Administration Dates Next Due Covid-19 [...] money to get more. Never true 04/26/2023 [place] Depression Scale Answer Date Recorded [place] Depression Scale Total 0 09/12/2023 The thought [...] Sign Reading Time Taken Comments Blood Pressure 102/62 11/14/2023 1:21 PM EDT Pulse - - Temperature - - Respiratory Rate - - Oxygen Saturation - - Inhaled Oxygen Concentration - - Weight 64.9 kg (143 lb) 11/14/2023 1:21 PM EDT Height - - Body Mass Index 26.16 11/07/2023 1:15 PM EDT documented in this encounter Progress Notes * Mya Schmitz CRNP - 11/14/2023 1:40 PM EDT 37w No concerns. Baby is active. Having some menstrual cramping, no contractions or bleeding. Discussed to call before going to L&D. STORM Romero * Jayla Allan MED ASSIST - 11/14/2023 1:21 PM EDT 37w0d No concerns Vaginal bleeding: no ROM: no movement: present Contractions: no Nausea: no Vomiting: no Headaches: no documented in this encounter Plan of Treatment Upcoming Encounters Date Type Department Care Team (Late st Contact Info) Description 11/21/2023 1:30 PM EDT Office Visit Gynecology/Obstetrics [facility] [address] [place] [address] Mya Schmitz CRNP [address] [place] [address] 11/28/2023 10:15 AM EDT [facility] [address] [place] [address] Mya Schmitz CRNP [address] [place] [address] Health Maintenance Due Date Last Done Comments [...] antepartum documented in this encounter Care Teams Warehouse Checker Relationship Specialty Start Date End Date Wayne López MD [address] [place] [address] PCP - General Family Medicine 10/11/20 documented as of this encounter
--- OUTSIDE RECORDS SUMMARY | 2023-12-11 08:35 | External Medical Summary | Summary of Care ---
Author Name Unknown Organization [facility] Address [address] [place] [address] Phone [phone] Care Team Providers Care Oil Pump Station Operator Chief Name Role Phone Wayne López MD Primary Care Provider [phone] Reason for Visit * Reason Comments Return Visit Encounter Details Date Type Department Care Team (Late st Contact Info) Description 10/24/2023 1:30 PM EDT Office Visit Gynecology/Obstetric s [place] [address] [facility] [place] [address] Mya Schmitz CRNP [address] [place] [address] Encounter for supervision of normal first in third trimester*; Antepartum anemia complicating Allergies Active Allergy Reactions Criticality Noted Date Comments Cheese 07/19/2019 Upset stomach, sleepy, low bp, itchy skin, rash on face, constipation, pale Garlic 07/19/2019 Rash, itchy, stomach upset documented as of this encounter (statuses as of 10/24/2023) Medications Medication Sig Dispensed Refills Start Date End Date Status KP Multivitamins 28-0.8 MG Oral Tablet Take by mouth. 0 Active Promethazine HCl 25 MG Oral Tablet (Phenergan)Indications :Encounter for supervision of normal first in first trimester,Nausea and vomiting during Take 1 Tablet by mouth every 6 hours as needed for Nausea. 30 Tablet 1 09/12/2023 Active Breast Pump Dispense double electric breast pump. Dx:Z39.1 1 Each 0 10/24/2023 Active documented as of this encounter (statuses as of 10/24/2023) Active Problems Problem Noted Date Diagnosed Date Iron deficiency anemia 09/14/2023 Antepartum anemia complicating 024 Overview: Hgb 8.3 at 28w. Recommend iron infusions , normal first 05/24/2023 Alopecia areata 10/11/2020 Lactose intolerance 01/20/2020 Estimated Date of Delivery Comme nts Yes 12/05/2023 Based on last me nstrual period of 02/28/2023 documented as of this encounter (statuses as of 10/24/2023) Resolved Problems Problem Noted Date Diagnosed Date [...] as of this encounter (statuses as of 10/24/2023) Immunizations Name Administration Dates Next Due Covid-19 [...] money to get more. Never true 04/26/2023 [place] Depression Scale Answer Date Recorded [place] Depression Scale Total 0 09/12/2023 The thought [...] Sign Reading Time Taken Comments Blood Pressure 100/60 10/24/2023 1:26 PM EDT Pulse - - Temperature - - Respiratory Rate - - Oxygen Saturation - - Inhaled Oxygen Concentration - - Weight 62.1 kg (137 lb) 10/24/2023 1:26 PM EDT Height 157.5 cm (5' 2") 10/24/2023 1:26 PM EDT Body Mass Index 25.06 10/24/2023 1:26 PM EDT documented in this encounter Progress Notes * Mya Schmitz CRNP - 10/24/2023 1:50 PM EDT 34w Feeling some back pain when sitting. Discussed contractions, labor, when to call. Planning to exclusively pump, rx printed for pump. Baby is active. Denies contractions, bleeding, LOF. GBS next visit. STORM Romero * Dawn Marcum LPN - 10/24/2023 1:26 PM EDT 34w0d No concerns documented in this encounter Plan of Treatment Upcoming Encounters Date Type Department Care Team (Late st Contact Info) Description 11/07/2023 1:10 PM EDT Laboratory Laboratory, [facility] [address] [place] [address] [facility] [address] [place] [address] 11/07/2023 1:30 PM EDT Office Visit Gynecology/Obstetrics [facility] [address] [place] [address] Mya Schmitz CRNP [address] [place] [address] 11/08/2023 9:30 AM EDT Pharmacy Pharmacy, [place] [address] [place] [address] [facility] [address] [place] [address] 11/14/2023 1:30 PM EDT Office Visit Gynecology/Obstetrics [place] [address] [place] [address] Mya Schmitz CRNP [address] [place] [address] 11/21/2023 1:30 PM EDT Office Visit Gynecology/Obstetrics [place] [address] [place] [address] Mya Schmitz CRNP [address] [place] [address] 11/28/2023 1:30 PM EDT Office Visit Gynecology/Obstetrics [facility] [address] [place] [address] Mya Schmitz CRNP [address] [place] [address] Health Maintenance Due Date Last Done Comments [...] antepartum documented in this encounter Care Teams Oil Pump Station Operator Chief Relationship Specialty Start Date End Date Wayne López MD [address] [place] [address] PCP - General Family Medicine 10/11/20 documented as of this encounter
--- OUTSIDE RECORDS SUMMARY | 2023-12-11 08:35 | External Medical Summary | Summary of Care ---
Author Name Unknown Organization [facility] Address [address] [place] [address] Phone [phone] Care Team Providers Care Contact Lens Polisher Name Role Phone Wayne López MD Primary Care Provider [phone] Reason for Visit * Reason Onset Date Comments Left Message Anemia Follow-Up 10/05/2023 Encounter Details Date Type Department Care Team (Late st Contact Info) Description 10/05/2023 2:00 PM EDT Pharmacy Pharmacy, [place] [address] [place], [place] [id number] Clinic, Anemia [address] [place] [address] Iron deficiency anemia, unspecified iron deficiency anemia type* Allergies Active Allergy Reactions Criticality Noted Date Comments Cheese 07/19/2019 Upset stomach, sleepy, low bp, itchy skin, rash on face, constipation, pale Garlic 07/19/2019 Rash, itchy, stomach upset documented as of this encounter (statuses as of 10/05/2023) Medications Medication Sig Dispensed Refills Start Date End Date Status Multivitamins 28-0.8 MG Oral Tablet Take by mouth. 0 Active Promethazine HCl 25 MG Oral Tablet (Phenergan)Indications: Encounter for supervision of normal first in first trimester,Nausea and vomiting during Take 1 Tablet by mouth every 6 hours as needed for Nausea. 30 Tablet 1 09/12/2023 Active documented as of this encounter (statuses as of 10/05/2023) Active Problems Problem Noted Date Diagnosed Date Iron deficiency anemia 09/14/2023 Antepartum anemia complicating 024 Overview: Hgb 8.3 at 28w. Recommend iron infusions , normal first 05/24/2023 Alopecia areata 10/11/2020 Lactose intolerance 01/20/2020 Estimated Date of Delivery Comme nts Yes 12/05/2023 Based on last me nstrual period of 02/28/2023 documented as of this encounter (statuses as of 10/05/2023) Resolved Problems Problem Noted Date Diagnosed Date [...] as of this encounter (statuses as of 10/05/2023) Immunizations Name Administration Dates Next Due Covid-19 [...] to get more. Never true 04/26/2023 [place] Depression Scale Answer Date Recorded [place] Depression Scale Total 0 09/12/2023 The thought [...] as of this encounter Progress Notes * Maritza Flores RPh - 10/05/2023 2:12 PM EDT CBCd, ferritin, iron screen, retic panel, B12, FA ordered for 11/07/23. Maritza Flores PharmD, [facility] Clinical Pharmacist [facility] (P: [phone]) 10/05/2023 2:12 PM * Ashia Garcia, homicide squad commanding officer - 10/05/2023 8:38 AM EDT Patient Phone Numbers MyG sent to patient. Patient received Venofer 300 mg x 3 on 09/18, 09/25 and 10/02. Labs due on 11/06. GA: 31w2d Estimated Date of Delivery: 12/05/23 Pharmacist - please place appropriate lab orders. Thank you, Ashia Garcia Furniture Maker 10/05/2023,8:38 AM documented in this encounter Plan of Treatment Upcoming Encounters Date Type Department Care Team (Late st Contact Info) Description 10/10/2023 1:30 PM EDT Office Visit Gynecology/Obstetrics [facility] [address] [place] [address] Mya Schmitz CRNP [address] [place] [address] 10/24/2023 1:30 PM EDT [facility] [address] [place] [address] Mya Schmitz CRNP [address] [place] [address] 11/07/2023 1:10 PM EDT Laboratory Laboratory, [facility] [address] [place] [address] [facility] [address] [place] [address] 11/07/2023 1:30 PM EDT Office [facility] [address] [place] [address] Mya Schmitz CRNP [address] [place] [address] 11/08/2023 9:30 AM EDT Pharmacy Pharmacy, [address] [address] [facility], [place] [address] [place] [address] 11/14/2023 1:30 PM EDT [facility] [address] [place] [address] Mya Schmitz CRNP [address] [place] [address] 11/21/2023 1:30 PM EDT Office [facility] [address] [place] [address] Mya Schmitz CRNP [address] [place] [address] 11/28/2023 1:30 PM EDT Office Visit Gynecology/Obstetrics [place] [address] [place] [address] Mya Schmitz CRNP [address] [place] [address] Scheduled Orders Name Type Priority Associated Diagnoses Orde r Schedule CBC WITH WBC DIFFERENTIAL Lab Routine Iron deficiency anemia, unspecified iron deficiency anemia type Expected: 11/07/2023, Expires: 09/03/2024 IRON SCREEN, INCLUDING TIBC Lab Routine Iron deficiency anemia, unspecified iron deficiency anemia type Expected: 11/07/2023, Expires: 09/03/2024 FERRITIN Lab Routine Iron deficiency anemia, unspecified iron deficiency anemia type Expected: 11/07/2023, Expires: 09/03/2024 RETICULOCYTE PANEL Lab Routine Iron deficiency anemia, unspecified iron deficiency anemia type Expected: 11/07/2023, Expires: 09/03/2024 VITAMIN B12 Lab Routine Iron deficiency anemia, unspecified iron deficiency anemia type Expected: 11/07/2023, Expires: 09/03/2024 FOLIC ACID Lab Routine Iron deficiency anemia, unspecified iron deficiency anemia type Expected: 11/07/2023, Expires: 09/03/2024 Health Maintenance Due Date Last Done Comments [...] Primary documented in this encounter Care Teams Contact Lens Polisher Relationship Specialty Start Date End Date Wayne López MD [address] [place] [address] PCP - General Family Medicine 10/11/20 documented as of this encounter
--- OUTSIDE RECORDS SUMMARY | 2023-12-11 08:35 | External Medical Summary | Summary of Care ---
Author Name Unknown Organization [facility] Address [address] [place] [address] Phone [phone] Care Team Providers Care Student Finance Advisor Name Role Phone Wayne López MD Primary Care Provider [phone] Reason for Visit * Reason Onset Date Comments Anemia Follow-Up 09/14/2023 * Evaluate & Treat - Unlimited Visits (Within 3 days (urgent)) - Authorized Specialty Diagnoses / Procedures Referred By Contac t Referred To Contact Pharmacist / Pharmacy Diagnoses CHERYL (iron deficiency anemia) Mya Schmitz CRNP [address] [place] [address] Referral ID Status Reason Start Date Expiration Date Visits Requested Visits Authorized [id number] Authorized Specialty Services Required 09/14/2023 99 99 Encounter Details Date Type Department Care Team (Late st Contact Info) Description 09/14/2023 4:00 PM EDT Pharmacy Pharmacy, [place] [address] [place], [place] [phone] Clinic, Anemia [address] [place], [place] [phone] Iron deficiency anemia, unspecified iron deficiency anemia type* Allergies Active Allergy Reactions Criticality Noted Date Comments Cheese 07/19/2019 Upset stomach, sleepy, low bp, itchy skin, rash on face, constipation, pale Garlic 07/19/2019 Rash, itchy, stomach upset documented as of this encounter (statuses as of 09/14/2023) Medications Medication Sig Dispensed Refills Start Date [...] as of this encounter (statuses as of 09/14/2023) Active Problems Problem Noted Date Diagnosed Date Iron deficiency anemia 09/14/2023 Antepartum anemia complicating 024 Overview: Hgb 8.3 at 28w. Recommend iron infusions , normal first 05/24/2023 Alopecia areata 10/11/2020 Lactose intolerance 01/20/2020 Estimated Date of Delivery Comme nts Yes 12/05/2023 Based on last me nstrual period of 02/28/2023 documented as of this encounter (statuses as of 09/14/2023) Resolved Problems Problem Noted Date Diagnosed Date [...] as of this encounter (statuses as of 09/14/2023) Immunizations Name Administration Dates Next Due Covid-19 [...] money to get more. Never true 04/26/2023 [place] Depression Scale Answer Date Recorded [place] Depression Scale Total 0 09/12/2023 The thought [...] this encounter Progress Notes * Ana Lilia Moore, [facility] - 09/14/2023 1:24 PM EDT Patient Phone Numbers Patient referred by STORM Carney for evaluation of anemia by the Anemia Clinic. Called patient to introduce role/clinic and to review labs from 09/11. Spoke to patient's spouse. Hgb: 8.3 g/dL TSAT: 4 % Ferritin: 8 ng/mL GA: 28w2d Estimated Date of Delivery: 12/05/23 Hgb is below target range for the third trimester. Iron studies below target range. Patient reports feeling very tired and otherwise denies signs/symptoms of anemia. Patient qualifies for IV iron repletion. Plan: Venofer 300 mg IV weekly x 3 doses at SP. Orders placed and routed to appropriate parties. Patient agreeable to intervention. Follow-up labs to be scheduled ~4-6 weeks after iron repletion completed if appropriate prior to delivery. Anemia Clinic will continue to follow. Thank you for allowing us to participate in the care of thispatient. Thanks, Ana Lilia Moore [facility] Clinical Pharmacist [facility] (P: [phone]) 09/14/2023 1:25 PM documented in this encounter Plan of Treatment Upcoming Encounters Date Type Department Care Team (Late st Contact Info) Description 09/26/2023 9:15 AM EDT Office Visit Gynecology/Obstetrics [facility] [address] [address] Mya Schmitz CRNP [address] [place] [address] 09/27/2023 10:00 AM EDT Pharmacy Pharmacy, [address] [address] Clinic, Anemia [address] [place] [address] 10/10/2023 1:30 PM EDT Office Visit Gynecology/Obstetrics [facility] [address] [place] [address] Mya Schmitz CRNP [address] [place] [address] Scheduled Referrals Name Type Priority Associated Diagnoses Orde r Schedule PHARMACIST MEDS THERAPY MGMT REFERRAL OP Referral Within 3 days (urgent) CHERYL (iron deficiency anemia) Ordered: 09/14/2023 Health Maintenance Due Date Last Done Comments [...] Primary documented in this encounter Care Teams Student Finance Advisor Relationship Specialty Start Date End Date Wayne López MD [address] [place] [address] PCP - General Family Medicine 10/11/20 documented as of this encounter
--- OUTSIDE RECORDS SUMMARY | 2023-12-11 08:35 | External Medical Summary | Summary of Care ---
Author Name Unknown Organization [facility] Address [address] [place] [address] Phone [phone] Care Team Providers Care Channel Supervisor Name Role Phone Wayne López MD Primary Care Provider [phone] [phone] Encounter Details Date Type Department Care Team (Late st Contact Info) Description 09/15/2023 Orders Only Pharmacy, [place] [address] [place], [place] [id number] [place], [facility] [address] [place] [address] Allergies Active Allergy Reactions Criticality Noted Date Comments Cheese 07/19/2019 Upset stomach, sleepy, low bp, itchy skin, rash on face, constipation, pale Garlic 07/19/2019 Rash, itchy, stomach upset documented as of this encounter (statuses as of 09/15/2023) Medications Medication Sig Dispensed Refills Start Date [...] as of this encounter (statuses as of 09/15/2023) Active Problems Problem Noted Date Diagnosed Date Iron deficiency anemia 09/14/2023 Antepartum anemia complicating 024 Overview: Hgb 8.3 at 28w. Recommend iron infusions , normal first 05/24/2023 Alopecia areata 10/11/2020 Lactose intolerance 01/20/2020 Estimated Date of Delivery Comme nts Yes 12/05/2023 Based on last me nstrual period of 02/28/2023 documented as of this encounter (statuses as of 09/15/2023) Resolved Problems Problem Noted Date Diagnosed Date [...] as of this encounter (statuses as of 09/15/2023) Immunizations Name Administration Dates Next Due Covid-19 [...] money to get more. Never true 04/26/2023 [place] Depression Scale Answer Date Recorded [place] Depression Scale Total 0 09/12/2023 The thought [...] 09/26/2023 9:15 AM EDT Office Visit Gynecology/Obstetrics [facility] [address] [address] Mya Schmitz CRNP [address] [place] [address] 09/27/2023 10:00 AM EDT Pharmacy Pharmacy, [place] [address] [place] [address] [facility] [address] [place] [address] 10/10/2023 1:30 PM EDT Office Visit Gynecology/Obstetrics [facility] [address] [address] [address] Mya Schmitz CRNP [address] [place] [address] Health Maintenance Due Date Last Done Comments [...] filedocumented as of this encounter Care Teams Channel Supervisor Relationship Specialty Start Date End Date Wayne López MD [address] [place] [address] PCP - General Family Medicine 10/11/20 documented as of this encounter
--- OUTSIDE RECORDS SUMMARY | 2023-12-11 08:35 | External Medical Summary | Summary of Care ---
Author Name Unknown Organization [facility] Address [address] [place] [address] Phone [phone] Care Team Providers Care Elevator Repairer Name Role Phone Wayne López MD Primary Care Provider +1 [phone] Reason for Visit * Reason Comments Return Visit Encounter Details Date Type Department Care Team (Late st Contact Info) Description 09/26/2023 9:15 AM EDT Office Visit Gynecology/Obstetric s [facility] [address] [facility] [place] [address] Mya Schmitz CRNP [address] [facility] [place] [address] Encounter for supervision of normal first in third trimester*; Antepartum anemia complicating Allergies Active Allergy Reactions Criticality Noted Date Comments Cheese 07/19/2019 Upset stomach, sleepy, low bp, itchy skin, rash on face, constipation, pale Garlic 07/19/2019 Rash, itchy, stomach upset documented as of this encounter (statuses as of 09/26/2023) Medications Medication Sig Dispensed Refills Start Date [...] as of this encounter (statuses as of 09/26/2023) Active Problems Problem Noted Date Diagnosed Date Iron deficiency anemia 09/14/2023 Antepartum anemia complicating 024 Overview: Hgb 8.3 at 28w. Recommend iron infusions , normal first 05/24/2023 Alopecia areata 10/11/2020 Lactose intolerance 01/20/2020 Estimated Date of Delivery Comme nts Yes 12/05/2023 Based on last me nstrual period of 02/28/2023 documented as of this encounter (statuses as of 09/26/2023) Resolved Problems Problem Noted Date Diagnosed Date [...] as of this encounter (statuses as of 09/26/2023) Immunizations Name Administration Dates Next Due Covid-19 [...] money to get more. Never true 04/26/2023 [place] Depression Scale Answer Date Recorded [place] Depression Scale Total 0 09/12/2023 The thought [...] Sign Reading Time Taken Comments Blood Pressure 100/58 09/26/2023 9:22 AM EDT Pulse - - Temperature - - Respiratory Rate - - Oxygen Saturation - - Inhaled Oxygen Concentration - - Weight 62.6 kg (138 lb) 09/26/2023 9:22 AM EDT Height 157.5 cm (5' 2") 09/26/2023 9:22 AM EDT Body Mass Index 25.24 09/26/2023 9:22 AM EDT documented in this encounter Progress Notes * Mya Schmitz CRNP - 09/26/2023 9:41 AM EDT 30w No concerns. Baby is active. Denies contractions or bleeding. Has questions about epidural, answered to the best of my ability. Has 2nd iron infusion later today. STORM Romero * Dawn Marcum LPN - 09/26/2023 9:22 AM EDT 30w0d Doing infusions had one last week, today and next week documented in this encounter Plan of Treatment Upcoming Encounters Date Type Department Care Team (Late st Contact Info) Description 09/26/2023 2:00 PM EDT Hem/Onc Treatment Hematology/Oncology Treatment, [address] [place] [address] 09/27/2023 10:00 AM EDT Pharmacy Pharmacy, [place] [address] [place] [address] Clinic, [facility] [address] [place] [address] 10/03/2023 2:30 PM EDT Hem/Onc Treatment Hematology/Oncology Treatment, [address] [place] [address] Lou, Chair 4 Hem Onc [address] [place] [address] 10/10/2023 1:30 PM EDT Office Visit Gynecology/Obstetrics [facility] [address] [place] [address] Mya Schmitz CRNP [address] [place] [address] 10/24/2023 1:30 PM EDT Office Visit Gynecology/Obstetrics [facility] [address] [place] [address] Mya Schmitz CRNP [address] [place] [address] 11/07/2023 1:30 PM EDT Office Visit Gynecology/Obstetrics [facility] [address] [place] [address] Mya Schmitz CRNP [address] [place] [address] 11/14/2023 1:30 PM EDT Office Visit Gynecology/Obstetrics [facility] [address] [place] [id number] Mya Schmitz CRNP [address] [place] [address] 11/21/2023 1:30 PM EDT Office Visit Gynecology/Obstetrics [facility] [address] [place] [address] Mya Schmitz CRNP [address] [place] [address] 11/28/2023 1:30 PM EDT Office Visit Gynecology/Obstetrics [facility] [address] [place] [address] yMa Schmitz CRNP [address] [place] [address] Health Maintenance Due Date Last Done Comments [...] antepartum documented in this encounter Care Teams Elevator Repairer Relationship Specialty Start Date End Date Wayne López MD [address] [place] [address] PCP - General Family Medicine 10/11/20 documented as of this encounter
--- OUTSIDE RECORDS SUMMARY | 2023-12-11 08:35 | External Medical Summary | Summary of Care ---
Author Name Unknown Organization [facility] Address [address] [place] [address] Phone [phone] Care Team Providers Care Lion Trainer Name Role Phone Wayne López MD Primary Care Provider [phone] [phone] Reason for Visit * Reason Comments IV Therapy Venofer Encounter Details Date Type Department Care Team (Latest Contact Info) Description 10/03/2023 2:30 PM EDT Hem/Onc Treatment Hematology/Oncology Treatment, [place] [address] [place] [address] Lou, Chair 4 Hem Onc [place] [address] [place] [address] Iron deficiency anemia, unspecified iron deficiency anemia type* Allergies Active Allergy Reactions Criticality Noted Date Comments Cheese 07/19/2019 Upset stomach, sleepy, low bp, itchy skin, rash on face, constipation, pale Garlic 07/19/2019 Rash, itchy, stomach upset documented as of this encounter (statuses as of 10/19/2023) Medications Medication Sig Dispensed Refills Start Date [...] as of this encounter (statuses as of 10/19/2023) Active Problems Problem Noted Date Diagnosed Date Iron deficiency anemia 09/14/2023 Antepartum anemia complicating 024 Overview: Hgb 8.3 at 28w. Recommend iron infusions , normal first 05/24/2023 Alopecia areata 10/11/2020 Lactose intolerance 01/20/2020 Estimated Date of Delivery Comme nts Yes 12/05/2023 Based on last me nstrual period of 02/28/2023 documented as of this encounter (statuses as of 10/19/2023) Resolved Problems Problem Noted Date Diagnosed Date [...] as of this encounter (statuses as of 10/19/2023) Immunizations Name Administration Dates Next Due Covid-19 Ad26, Single Dose (Murphy/J&J) 021 Seasonal Influenza Virus Vac cine, Unspecified Formulation 05/12/2020 Seasonal Influenza, PF, 6 M & above, IM , (FluLaval or Fluzone) 05/12/2020 TDAP (age 10 and older)(Boostrix) 09/12/2023 documented as of this encounter Social History Tobacco Use Types Packs/Day Years Used Date Smoking Tobacco: Never Smokeless Tobacco: Never Tobacco Cessation:Counseling Given: Not Answered Comments:no passive smoke Alcohol Use Standard Drinks/Week [...] money to buy more. Never true 04/26/20 Within the past 12 months, t he food you bought just didn't last and you didn't have money to get more. Never true 04/26/2023 [place] Depression Scale Answer Date Recorded [place] Depression Scale Total 0 09/12/2023 The thought [...] Sign Reading Time Taken Comments Blood Pressure 96/65 10/03/2023 2:57 PM EDT Pulse 94 10/03/2023 2:57 PM EDT Temperature 36.5 C (97.7 F) 10/03/2023 2:57 PM ED T Respiratory Rate 16 10/03/2023 2:57 PM EDT Oxygen Saturation 98% 10/03/2023 2:57 PM EDT Inhaled Oxygen Concentration - - Weight - - Height - - Body Mass Index - - documented in this encounter Nursing Notes * Tasha Humphries RN - 10/03/2023 4:34 PM EDT Patient tolerated treatment well and was discharged in stable condition. * Jenny Valadez LPN - 10/03/2023 3:02 PM EDT Patient arrived Chair 3 for IV therapy Venofer. Vital signs stable. IV access at the left cephalic vein with 22g. documented in this encounter Plan of Treatment Upcoming Encounters Date Type Department Care Team (Late st Contact Info) Description 10/24/2023 1:30 PM EDT Office Visit Gynecology/Obstetrics [facility] [address] [place] [address] Mya Schmitz CRNP [address] [place] [address] 11/07/2023 1:10 PM EDT Laboratory Laboratory, [facility] [address] [place] [address] [facility] [address] [place] [address] 11/07/2023 1:30 PM EDT Office Visit Gynecology/Obstetrics [facility] [address] [place] [address] Mya Schmitz CRNP [address] [place] [address] 11/08/2023 9:30 AM EDT Pharmacy Pharmacy, [place] [address] [place] [address] Clinic, [place] [address] [place] [address] 11/14/2023 1:30 PM EDT Office Visit Gynecology/Obstetrics [facility] [address] [place] [address] Mya Schmitz CRNP [address] [place] [address] 11/21/2023 1:30 PM EDT Office Visit Gynecology/Obstetrics [facility] [address] [place] [address] Mya Schmitz CRNP [address] [place] [address] 11/28/2023 1:30 PM EDT Office Visit Gynecology/Obstetrics [facility] [address] [place] [address] Mya Schmitz CRNP [address] [place] [address] Health Maintenance Due Date Last Done Comments [...] anemia type- Primary documented in this encounter Administered Medications Inactive Administered Medications - up to 3 most recent administrations Medication Order MAR Action Action Date Dose Rate Site Iron Sucrose (Venofer) 300 mg in NSS 250 mL ivpb 300 mg, IV Piggyback, ONCE, 1 dose, On Mon10/03/23 at 1630, Administer over 90 Minutes Start Infusion 10/03/2023 2:54 PM EDT 300 mg 193.33 mL/hr NSS infusion 500 mL, Intravenous, at 50 mL/hr, CONTINUOUS, Starting on Mon10/03/23 at 1600, Until Mon10/03/23 at 2034 Start Infusion 10/03/2023 2:53 PM EDT 500 mL 50 mL/hr documented in this encounter Care Teams Lion Trainer Relationship Specialty Start Date End Date Wayne López MD [address] [place] [address] PCP - General Family Medicine 10/11/20 documented as of this encounter
--- OUTSIDE RECORDS SUMMARY | 2023-12-11 08:35 | External Medical Summary | Summary of Care ---
Author Name Unknown Organization [facility] Address [address] [place] [address] Phone [phone] Care Team Providers Care Wire Coiner Name Role Phone Wayne López MD Primary Care Provider [phone] [phone] Reason for Visit * Reason Comments Outpatient Testing Encounter Details Date Type Department Care Team (Late st Contact Info) Description 09/14/2023 8:00 AM EDT Laboratory Laboratory, [facility] [address] [place] [address] [facility] [address] [place] [address] Abnormal glucose tolerance in mother complicating Allergies Active Allergy Reactions Criticality Noted [...] Active Problems Problem Noted Date Diagnosed Date Antepartum anemia complicating 024 Overview: Hgb 8.3 [...] money to get more. Never true 04/26/2023 [place] Depression Scale Answer Date Recorded [place] Depression Scale Total 0 09/12/2023 The thought [...] 09/26/2023 9:15 AM EDT Office Visit Gynecology/Obstetrics [facility] [address] [place] [address] Mya Schmitz CRNP [address] [place] [address] 10/10/2023 1:30 PM EDT Office Visit [facility] [address] [place] [address] Mya Schmitz CRNP [address] [place] [address] Pending Results Name Type Priority Associated Diagnoses Date /Time GESTATIONAL GLUCOSE TOLERANCE, 3 HOUR Lab Routine Abnormal glucose tolerance in mother complicating 09/14/2023 8:23 AM EDT 100-G GESTATIONAL GLUCOSE, 2 HOUR Lab Routine Abnormal glucose tolerance in mother complicating 09/14/2023 10:25 AM EDT 100-G GESTATIONAL GLUCOSE, 3 HOUR Lab Routine Abnormal glucose tolerance in mother complicating 09/14/2023 11:23 AM EDT Health Maintenance Due Date Last Done [...] Procedure Name Priority Date/Time Associated Diagnosis Comments 100-G GESTATIONAL GLUCOSE, 1 HOUR Routine 09/14/2023 9:27 AM EDT Abnormal glucose tolerance in mother complicating 100-G GESTATIONAL GLUCOSE, FASTING Routine 09/14/2023 8:23 AM EDT Abnormal glucose tolerance in mother complicating documented in this encounter Results * 100-G GESTATIONAL GLUCOSE, 1 HOUR (09/14/2023 9:27 AM EDT) 100-g Gestational Glucose, 1 Hour 169 70 - 179 mg/dL 09/14/2023 9:58 AM EDT LABORATORY [place] 57-10 Blood Venous blood specimen / Unknown Venipuncture / Unknown 09/14/2023 9:27 AM EDT 09/14/2023 9:27 AM EDT Mya [facility] LAB BLOOD ORDERABLES LABORATORY [place] 57-10 [address] [place] [address] * 100-G GESTATIONAL GLUCOSE, FASTING (09/14/2023 8:23 AM EDT) 100-g Gestational Glucose, Fasting 93 70 - 94 mg/dL 09/14/2023 9:22 AM EDT LABORATORY [place] 57-10 Blood Venous blood specimen / Unknown Venipuncture / Unknown 09/14/2023 8:23 AM EDT 09/14/2023 8:23 AM EDT Narrative LABORATORY [place] 57-10 - 09/14/2023 9:22 AM EDT Based on ACOG guideline, gestational diabetes mellitus is diagnosed when any of the following is met: Fasting is greater than or equal to 95 mg/dL 1 hour is greater than or equal to 180 mg/dL 2 hour is greater than or equal to 155 mg/dL 3 hour is greater than or equal to 140 mg/dL Mya [facility] BLOOD ORDERABLES [facility] [place] 57-10 [address] [place] [address] documented in this encounter Visit Diagnoses Diagnosis Abnormal glucose tolerance in mother complicating Abnormal maternal glucose tolerance, complicating , childbirth, or the puerperium, unspecified as to episode of care documented in this encounter Care Teams Wire Coiner Relationship Specialty Start Date End Date Wayne López MD [address] [place] [address] PCP - General Family Medicine 10/11/20 documented as of this encounter
--- OUTSIDE RECORDS SUMMARY | 2023-12-11 08:35 | External Medical Summary | Summary of Care ---
Author Name Unknown Organization [facility] Address [address] [place] [address] Phone [phone] Care Team Providers Care Rim Turning Machine Operator Name Role Phone Wayne López MD Primary Care Provider +1 [phone] Reason for Visit * Reason Comments Infusion Venofer 06/14 Encounter Details Date Type Department Care Team (Latest Contact Info) Description 09/19/2023 2:30 PM EDT Hem/Onc Treatment Hematology/Oncology Treatment, [place] [address] [place] [address] Lou, Chair 3 Hem Onc Scen[place] [address] [place] [address] Iron deficiency anemia, unspecified iron deficiency anemia [...] money to get more. Never true 04/26/2023 [place] Depression Scale Answer Date Recorded [place] Depression Scale Total 0 09/12/2023 The thought [...] Sign Reading Time Taken Comments Blood Pressure 104/68 09/19/2023 2:25 PM EDT Pulse 115 09/19/2023 2:25 PM EDT Temperature 37.1 C (98.8 F) 09/19/2023 2:25 PM ED T Respiratory Rate 18 09/19/2023 2:25 PM EDT Oxygen Saturation 99% 09/19/2023 2:25 PM EDT Inhaled Oxygen Concentration - - Weight - - Height - - Body Mass Index - - documented in this encounter Nursing Notes * Mirna Flores LPN - 09/19/2023 2:26 PM EDT 1420: Chair 7. Pt arrived for Venofer 1/3 infusion. PIV in RFA. Pt tolerated well. VSS. No complaints at this time. 1553: Pt tolerated Venofer infusion well. PIV removed intact. Pt to return in one week. Discharged in stable condition. documented in this encounter Plan of Treatment Upcoming Encounters Date Type Department Care Team (Late st Contact Info) Description 10/24/2023 1:30 PM EDT Office Visit Gynecology/Obstetrics [address] [place] [address] Mya Schmitz CRNP [address] [place] [address] 11/07/2023 1:10 PM EDT [facility] [address] [place] [address] [facility] [address] [place] [address] 11/07/2023 1:30 PM EDT [facility] [address] [place] [address] Mya Schmitz CRNP [address] [place] [address] 11/08/2023 9:30 AM EDT Pharmacy Pharmacy, [address] [address] 11/14/2023 1:30 PM EDT Office [facility] [address] [place] [address] Mya Schmitz CRNP [address] [place] [address] 11/21/2023 1:30 PM EDT Office Visit [facility] [address] [place] [address] Mya Schmitz CRNP [address] [place] [address] 11/28/2023 1:30 PM EDT Office Visit [facility] [address] [place] [address] Mya Schmitz CRNP [address] [place] [address] Health Maintenance Due Date Last Done Comments [...] mg, IV Piggyback, ONCE, 1 dose, On Mon09/19/23 at 1545, Administer over 90 Minutes Start Infusion 09/19/2023 2:22 PM EDT 300 mg 166.67 mL/hr NSS infusion 500 mL, Intravenous, at 50 mL/hr, CONTINUOUS, Starting on Mon09/19/23 at 1515, Until Mon09/19/23 at 1955 Start Infusion 09/19/2023 2:22 PM EDT 500 mL 50 mL/hr documented in this encounter Care Teams Rim Turning Machine Operator Relationship Specialty Start Date End Date Wayne López MD [address] [place] [address] PCP - General Family Medicine 10/11/20 documented as of this encounter
--- OUTSIDE RECORDS SUMMARY | 2023-12-11 08:35 | External Medical Summary | Summary of Care ---
Author Name Unknown Organization [facility] Address [address] [place] [address] Phone [phone] Care Team Providers Care Sizing Machine Operator Name Role Phone Wayne López MD Primary Care Provider [phone] [phone] Encounter Details Date Type Department Care Team (Late st Contact Info) Description 09/15/2023 Orders Only Pharmacy, [place] [address] [place], [place] [id number] Nelson Cabral, [facility] [address] [place] [address] Allergies Active Allergy Reactions Criticality Noted Date Comments Cheese 07/19/2019 Upset stomach, sleepy, low bp, itchy skin, rash on face, constipation, pale Garlic 07/19/2019 Rash, itchy, stomach upset documented as of this encounter (statuses as of 10/02/2023) Medications Medication Sig Dispensed Refills Start Date [...] as of this encounter (statuses as of 10/02/2023) Active Problems Problem Noted Date Diagnosed Date Iron deficiency anemia 09/14/2023 Antepartum anemia complicating 024 Overview: Hgb 8.3 at 28w. Recommend iron infusions , normal first 05/24/2023 Alopecia areata 10/11/2020 Lactose intolerance 01/20/2020 Estimated Date of Delivery Comme nts Yes 12/05/2023 Based on last me nstrual period of 02/28/2023 documented as of this encounter (statuses as of 10/02/2023) Resolved Problems Problem Noted Date Diagnosed Date [...] as of this encounter (statuses as of 10/02/2023) Immunizations Name Administration Dates Next Due Covid-19 [...] money to get more. Never true 04/26/2023 [place] Depression Scale Answer Date Recorded [place] Depression Scale Total 0 09/12/2023 The thought [...] as of this encounter Miscellaneous Notes * Addendum Note - Nelson Cabral RPh - 10/02/2023 11:01 AM EDT Addended by: NELSON CABRAL on: 10/02/2023 11:01 AM Modules accepted: Orders documented in this encounter Plan of Treatment Upcoming Encounters Date Type Department Care Team (Late st Contact Info) Description 10/03/2023 2:30 PM EDT Hem/Onc Treatment Hematology/Oncology Treatment, [place] [address] [place] [address] [place], Chair 4 Hem Onc [place] [address] [place] [address] 10/05/2023 2:00 PM EDT Pharmacy Pharmacy, [place] [address] [place] [address] Clinic, [place] [address] [place] [address] 10/10/2023 1:30 PM EDT [facility] [address] [place] [address] Mya Schmitz CRNP [address] [place] [address] 10/24/2023 1:30 PM EDT Office Visit Gynecology/Obstetrics [facility] [address] [place] [address] Mya Schmitz CRNP [address] [place] [address] 11/07/2023 1:30 PM EDT Office Visit Gynecology/Obstetrics [facility] [address] [place] [address] Mya Schmitz CRNP [address] [place] [address] 11/14/2023 1:30 PM EDT Office Visit Gynecology/Obstetrics [facility] [address] [place] [address] Mya Schmitz CRNP [address] [place] [address] 11/21/2023 1:30 PM EDT Office Visit Gynecology/Obstetrics [place] [address] [place] [address] Mya Schmitz CRNP [address] [place] [address] 11/28/2023 1:30 PM EDT Office Visit Gynecology/Obstetrics [facility] [address] [place] [address] Mya Schmitz CRNP [address] [place] [address] Health Maintenance Due Date Last Done Comments Hepatitis B (1 of 3 - 19+ 3-dose series) 01/02/2012 COVID-19 Vaccine (2 2022-2 4 season) 2023 09/21/2020 Influenza Vaccine [...] filedocumented as of this encounter Care Teams Sizing Machine Operator Relationship Specialty Start Date End Date Wayne López MD [address] [place] [address] PCP - General Family Medicine 10/11/20 documented as of this encounter
--- OUTSIDE RECORDS SUMMARY | 2023-12-11 08:35 | External Medical Summary | Summary of Care ---
Author Name Unknown Organization [facility] Address [address] [place] [address] Phone [phone] Care Team Providers Care Employee Communications Coordinator Name Role Phone Wayne López MD Primary Care Provider [phone] [phone] Encounter Details Date Type Department Care Team (Late st Contact Info) Description 09/14/2023 Orders Only Pharmacy, [place] [address] [place], [place] [address] Mya Schmitz CRNP [address] [place] [address] Iron deficiency anemia, unspecified iron deficiency anemia [...] to get more. Never true 04/26/2023 [place] Depression Scale Answer Date Recorded [place] Depression Scale Total 0 09/12/2023 The thought [...] Description 09/14/2023 4:00 PM EDT Pharmacy Pharmacy, [place] [address] [place] [address] Clinic, [place] [address] [place] [address] Iron deficiency anemia, unspecified iron deficiency anemia type* 09/26/2023 9:15 AM EDT [facility] [address] [facility] [place] [address] Mya Schmitz CRNP [address] [place] [address] 09/27/2023 10:00 AM EDT Pharmacy Pharmacy, [place] [address] [place] [address] Clinic, [place] [address] [place] [address] 10/10/2023 1:30 PM EDT Office Visit [facility]necology[facility] [place] [address] Mya Schmitz CRNP [address] [place] [address] Health Maintenance Due Date Last Done Comments [...] anemia, unspecified iron deficiency anemia type- Primary Iron deficiency anemia, unspecified iron deficiency anemia type- Primary documented in this encounter Care Teams Employee Communications Coordinator Relationship Specialty Start Date End Date Wayne López MD [address] [place] [address] PCP - General Family Medicine 10/11/20 documented as of this encounter
--- OUTSIDE RECORDS SUMMARY | 2023-12-11 08:35 | External Medical Summary ---
Author Name Unknown Address Unknown Organization K01:LABORATORY [facility] [address] [place] [address] Laboratory Report Ordering Provider Test Date Status JOSIE HUNT 11/07/2023 13:09:58 Final Observation Date Value Abnormality Reference (Units ) Status Retic, % (auto) 11/07/2023 13:09:58 2.74 Above high normal 0.80-1.90 (%) Final Reticulocytes, Absolute 11/07/2023 13:09:58 113.7 Above high normal 31.3-100.1 (K/uL) Final Reticulocyte fraction, immature 11/07/2023 13:09:58 30.9 Above high normal 2.5-20.6 (%) Final Reticulocyte HGB 11/07/2023 13:09:58 27.5 Below low normal 29.7-37.4 (pg) Final Performing Location LABORATORY [facility] - [address] [facility] [address]
--- OUTSIDE RECORDS SUMMARY | 2023-12-11 08:35 | External Medical Summary | Summary of Care ---
Author Name Unknown Organization [facility] Address [address] [place] [address] Phone [phone] Care Team Providers Care Professional Programmer Analyst Name Role Phone Wayne López MD Primary Care Provider [phone] Reason for Visit * Reason Comments IV Therapy Venofer Encounter Details Date Type Department Care Team (Latest Contact Info) Description 09/26/2023 2:00 PM EDT Hem/Onc Treatment Hematology/Oncology Treatment, [place] [address] [place] [address] Iron deficiency anemia, unspecified iron deficiency anemia [...] money to get more. Never true 04/26/2023 [place] Depression Scale Answer Date Recorded [place] Depression Scale Total 0 09/12/2023 The thought [...] Sign Reading Time Taken Comments Blood Pressure 104/69 09/26/2023 2:14 PM EDT Pulse 101 09/26/2023 2:14 PM EDT Temperature 36.6 C (97.8 F) 09/26/2023 2:14 PM ED T Respiratory Rate 16 09/26/2023 2:14 PM EDT Oxygen Saturation 98% 09/26/2023 2:14 PM EDT Inhaled Oxygen Concentration - - Weight - - Height - - Body Mass Index - - documented in this encounter Nursing Notes * Jenny Valadez LPN - 09/26/2023 3:49 PM EDT Venofer infusion completed. IV access disconnected, site was cleaned and dressed. Patient discharged in stable condition. * Jenny Valadez LPN - 09/26/2023 2:20 PM EDT Patient arrived for IV Therapy Venofer 2/3. Vital Signs are stable. Chair #9. IV attempt successfulat the right cephalic vein. NSS connected and started. Venofer connected and started documented in this encounter Plan of Treatment Upcoming Encounters Date Type Department Care Team (Late st Contact Info) Description 09/27/2023 10:00 AM EDT Pharmacy Pharmacy, [address] [place] [address] Clinic, [place] [address] [place] [facility] [place] [address] 10/03/2023 2:30 PM EDT Hem/Onc Treatment Hematology/Oncology Treatment, [place] [address] [place] [phone] Park, Chair 4 Hem Onc Sc[place] [address] [place] [address] 10/10/2023 1:30 PM EDT Office Visit Gynecology/Obstetrics [facility] [address] [place] [address] Mya Schmitz CRNP [address] [place] [address] 10/24/2023 1:30 PM EDT Office Visit Gynecology/Obstetrics [facility] [address] [place] [address] Mya Schmitz CRNP [address] [place] [address] 11/07/2023 1:30 PM EDT Office Visit Gynecology/Obstetrics [facility] [address] [place] [address] Mya Schmitz CRNP [address] [place] [address] 11/14/2023 1:30 PM EDT Office Visit Gynecology/Obstetrics [facility] [address] [place] [address] Mya Schmitz CRNP [address] [place] [address] 11/21/2023 1:30 PM EDT Office Visit Gynecology/Obstetrics [facility] [address] [place] [address] Mya Schmitz CRNP [address] [place] [address] 11/28/2023 1:30 PM EDT Office Visit Gynecology/Obstetrics [facility] [address] [place] [address] Mya Schmitz CRNP [address] [place] [address] Health Maintenance Due Date Last Done Comments [...] Primary documented in this encounter Administered Medications Active Administered Medications - up to 3 most recent administrations Medication Order MAR Action Action Date Dose Rate Site diphenhydrAMINE (Benadryl) inj 50 mg 50 mg, IV Push, ONCE PRN Other, Hypersensitivity Reaction, Starting on Mon09/26/23 at 1408, Until Mon09/27/23 at 1407, For 24 hours EPINEPHrine 1 MG/ML inj 0.3 mg 0.3 mg, Intramuscular, ONCE PRN Other, Hypersensitivity Reaction or Anaphylaxis, Starting on Mon09/26/23 at 1408, Until Mon09/27/23 at 1407, For 24 hours hEParin 100 UNIT/ML Lock Flush inj 500 Units 500 Units (5 mL), IV Lock, PRN Other, IV Flush, Starting on Mon09/26/23 at 1408, Until Mon09/27/23 at 1407, For 24 hours, Do not flush if lock, PICC, or central line not in place; IV infusing or unable to flush. Hydrocortisone Sod Suc (PF) (Solu-Cortef) inj 100 mg 100 mg, IV Push, ONCE PRN Other, Hypersensitivity Reaction, Starting on Mon09/26/23 at 1408, Until Mon09/27/23 at 1407, For 24 hours NSS infusion 500 mL, Intravenous, at 50 mL/hr, CONTINUOUS, Starting on Mon09/26/23 at 1515, Until Mon09/27/23 at 0114 Start Infusion 09/26/2023 2:08 PM EDT 500 mL 50 mL/hr oxygen GAS Inhalation, OXYGEN, First dose on Mon09/26/23 at 1600, Until Discontinued, Device/Managed by: Low Flow Device, Goal SPO2 (%): 91-95, Starting Device: Nasal Cannula, Initial Flow Rate (LPM): 2, Lowest Support: Nasal Cannula: Flow 0-6 LPM. Titrate up/down by 1 LPM., Higher Support: Non-Rebreather (NRB) Mask: Minimum of 10 LPM. Titrate to maintain bag inflation., Titration Interval: Q2 minutes and as needed., Notify Provider: For sudden DECREASE in resting SPO2 to less than 85% and when escalating delivery device., Wean patient off Oxygen when the oxygen saturation is greater than or equal to 93% sodium chloride 0.9 % flush central line 10 mL 10 mL, IV Push, PRN Other, IV Flush, Starting on Mon09/26/23 at 1408, Until Mon09/27/23 at 1407, For 24 hours, Do not flush if lock, PICC, or central line not in place; IV infusing or unable to flush. Inactive Administered Medications - up to 3 most recent administrations Medication Order MAR Action Action Date Dose Rate Site Iron Sucrose (Venofer) 300 mg in NSS 250 mL ivpb 300 mg, IV Piggyback, ONCE, 1 dose, On Mon09/26/23 at 1545, Administer over 90 Minutes Start Infusion 09/26/2023 2:09 PM EDT 300 mg 193.33 mL/hr documented in this encounter Care Teams Professional Programmer Analyst Relationship Specialty Start Date End Date Wayne López MD [address] [place] [address] PCP - General Family Medicine 10/11/20 documented as of this encounter
--- OUTSIDE RECORDS SUMMARY | 2023-12-11 08:35 | External Medical Summary | Summary of Care ---
Author Name Unknown Organization [facility] Address [address] [place] [address] Phone [phone] Care Team Providers Care Veterinary Surgery Technician Name Role Phone Wayne López MD Primary Care Provider [phone] Reason for Visit * Reason Comments IV Therapy Venofer Encounter Details Date Type Department Care Team (Latest Contact Info) Description 10/03/2023 2:30 PM EDT Hem/Onc Treatment Hematology/Oncology Treatment, [place] [address] [place] [address] Lou, Chair 4 Hem Onc Scen[place] [address] [place] [address] Iron deficiency anemia, unspecified iron deficiency anemia type* Allergies Active Allergy Reactions Criticality Noted Date Comments Cheese 07/19/2019 Upset stomach, sleepy, low bp, itchy skin, rash on face, constipation, pale Garlic 07/19/2019 Rash, itchy, stomach upset documented as of this encounter (statuses as of 10/03/2023) Medications Medication Sig Dispensed Refills Start Date [...] as of this encounter (statuses as of 10/03/2023) Active Problems Problem Noted Date Diagnosed Date Iron deficiency anemia 09/14/2023 Antepartum anemia complicating 024 Overview: Hgb 8.3 at 28w. Recommend iron infusions , normal first 05/24/2023 Alopecia areata 10/11/2020 Lactose intolerance 01/20/2020 Estimated Date of Delivery Comme nts Yes 12/05/2023 Based on last me nstrual period of 02/28/2023 documented as of this encounter (statuses as of 10/03/2023) Resolved Problems Problem Noted Date Diagnosed Date [...] as of this encounter (statuses as of 10/03/2023) Immunizations Name Administration Dates Next Due Covid-19 [...] money to get more. Never true 04/26/2023 [place] Depression Scale Answer Date Recorded [place] Depression Scale Total 0 09/12/2023 The thought [...] Description 10/05/2023 2:00 PM EDT Pharmacy Pharmacy, [place] [address] [place] [address] Clinic, [facility] [address] [place] [facility] [place] [address] 10/10/2023 1:30 PM EDT Office Visit Gynecology/Obstetrics [facility] [address] [place] [address] Mya Schmitz CRNP [address] [place] [address] 10/24/2023 1:30 PM EDT Office Visit Gynecology/Obstetrics [facility] [address] [place] [address] Mya Schmitz CRNP [address] [place] [address] 11/07/2023 1:30 PM EDT Office Visit Gynecology/Obstetrics [facility] [address] [place] [address] Mya Schmitz CRNP [address] [place] [address] 11/14/2023 1:30 PM EDT Office Visit Gynecology/Obstetrics [facility] [address] [place] [address] Mya Schmitz CRNP [address] [place] [address] 11/21/2023 1:30 PM EDT Office Visit Gynecology/Obstetrics [facility] [address] [place] [address] Mya Schmitz CRNP [address] [place] [address] 11/28/2023 1:30 PM EDT Office Visit Gynecology/Obstetrics [facility] [address] [place] [address] Mya Schmitz CRNP [address] [place] [address] Health Maintenance Due Date Last Done Comments [...] ONCE PRN Other, Hypersensitivity Reaction, Starting on Mon10/03/23 at 1453, Until Mon10/04/23 at 1452, For 24 hours EPINEPHrine 1 MG/ML inj 0.3 mg 0.3 mg, Intramuscular, ONCE PRN Other, Hypersensitivity Reaction or Anaphylaxis, Starting on Mon10/03/23 at 1453, Until Mon10/04/23 at 1452, For 24 hours hEParin 100 UNIT/ML Lock Flush inj 500 Units 500 Units (5 mL), IV Lock, PRN Other, IV Flush, Starting on Mon10/03/23 at 1453, Until Mon10/04/23 at 1452, For 24 hours, Do not flush if lock, PICC, or central line not in place; IV infusing or unable to flush. Hydrocortisone Sod Suc (PF) (Solu-Cortef) inj 100 mg 100 mg, IV Push, ONCE PRN Other, Hypersensitivity Reaction, Starting on Mon10/03/23 at 1453, Until Mon10/04/23 at 1452, For 24 hours NSS infusion 500 mL, Intravenous, at 50 mL/hr, CONTINUOUS, Starting on Mon10/03/23 at 1600, Until Mon10/04/23 at 0159 Start Infusion 10/03/2023 2:53 PM EDT 500 mL 50 mL/hr oxygen GAS Inhalation, OXYGEN, First dose on Mon10/03/23 at 1600, Until Discontinued, Device/Managed by: Low [...] Push, PRN Other, IV Flush, Starting on Mon10/03/23 at 1453, Until Mon10/04/23 at 1452, For 24 hours, Do not flush if [...] 2:54 PM EDT 300 mg 193.33 mL/hr documented in this encounter Care Teams Veterinary Surgery Technician Relationship Specialty Start Date End Date Wayne López MD [address] [place] [address] PCP - General Family Medicine 10/11/20 documented as of this encounter
--- OUTSIDE RECORDS SUMMARY | 2023-12-11 08:35 | External Medical Summary | Summary of Care ---
Author Name Unknown Organization [facility] Address [address] [place] [address] Phone [phone] Care Team Providers Care Flying I Instructor Name Role Phone Wayne López MD Primary Care Provider [phone] Reason for Visit * Reason Comments Infusion Venofer 06/14 Encounter Details Date Type Department Care Team (Latest Contact Info) Description 09/19/2023 2:30 PM EDT Hem/Onc Treatment Hematology/Oncology Treatment, [place] [address] [place] [address] Lou, Chair 3 Hem Onc Scenery [address] [place] [address] Iron deficiency anemia, unspecified iron deficiency anemia type* Allergies Active Allergy Reactions Criticality Noted Date Comments Cheese 07/19/2019 Upset stomach, sleepy, low bp, itchy skin, rash on face, constipation, pale Garlic 07/19/2019 Rash, itchy, stomach upset documented as of this encounter (statuses as of 09/19/2023) Medications Medication Sig Dispensed Refills Start Date [...] as of this encounter (statuses as of 09/19/2023) Active Problems Problem Noted Date Diagnosed Date Iron deficiency anemia 09/14/2023 Antepartum anemia complicating 024 Overview: Hgb 8.3 at 28w. Recommend iron infusions , normal first 05/24/2023 Alopecia areata 10/11/2020 Lactose intolerance 01/20/2020 Estimated Date of Delivery Comme nts Yes 12/05/2023 Based on last me nstrual period of 02/28/2023 documented as of this encounter (statuses as of 09/19/2023) Resolved Problems Problem Noted Date Diagnosed Date [...] as of this encounter (statuses as of 09/19/2023) Immunizations Name Administration Dates Next Due Covid-19 [...] money to get more. Never true 04/26/2023 [place] Depression Scale Answer Date Recorded [place] Depression Scale Total 0 09/12/2023 The [...] 09/26/2023 9:15 AM EDT Office Visit Gynecology/Obstetrics [address] [place] [address] Mya Schmitz CRNP [address] [place] [address] 09/26/2023 2:00 PM EDT Hem/Onc Treatment Hematology/Oncology Treatment, [address] [place] [address] 09/27/2023 10:00 AM EDT Pharmacy Pharmacy, [place] [address] [place] [address] Clinic, [place] [address] [place] [address] 10/03/2023 2:30 PM EDT Hem/Onc Treatment Hematology/Oncology Treatment, [address] [place] [phone] [place], Chair 4 Hem Onc [address] [place] [address] 10/10/2023 1:30 PM EDT Office Visit Gynecology/Obstetrics [facility] [address] [place] [address] Mya Schmitz CRNP [address] [place] [address] Health Maintenance Due Date Last Done Comments [...] ONCE PRN Other, Hypersensitivity Reaction, Starting on Mon09/19/23 at 1405, Until Mon09/20/23 at 1404, For 24 hours EPINEPHrine 1 MG/ML inj 0.3 mg 0.3 mg, Intramuscular, ONCE PRN Other, Hypersensitivity Reaction or Anaphylaxis, Starting on Mon09/19/23 at 1405, Until Mon09/20/23 at 1404, For 24 hours hEParin 100 UNIT/ML Lock Flush inj 500 Units 500 Units (5 mL), IV Lock, PRN Other, IV Flush, Starting on Mon09/19/23 at 1405, Until Mon09/20/23 at 1404, For 24 hours, Do not flush if lock, PICC, or central line not in place; IV infusing or unable to flush. Hydrocortisone Sod Suc (PF) (Solu-Cortef) inj 100 mg 100 mg, IV Push, ONCE PRN Other, Hypersensitivity Reaction, Starting on Mon09/19/23 at 1405, Until Mon09/20/23 at 1404, For 24 hours NSS infusion 500 mL, Intravenous, at 50 mL/hr, CONTINUOUS, Starting on Mon09/19/23 at 1515, Until Mon09/20/23 at 0114 Start Infusion 09/19/2023 2:22 PM EDT 500 mL 50 mL/hr oxygen GAS Inhalation, OXYGEN, First dose on Mon09/19/23 at 1600, Until Discontinued, Device/Managed by: Low [...] Push, PRN Other, IV Flush, Starting on Mon09/19/23 at 1405, Until Mon09/20/23 at 1404, For 24 hours, Do not flush if [...] 2:22 PM EDT 300 mg 166.67 mL/hr documented in this encounter Care Teams Flying I Instructor Relationship Specialty Start Date End Date Wayne López MD [address] [place] [address] PCP - General Family Medicine 10/11/20 documented as of this encounter
--- OUTSIDE RECORDS SUMMARY | 2023-12-11 08:35 | External Medical Summary | Summary of Care ---
Author Name Unknown Organization [facility] Address [address] [place] [address] Phone [phone] Care Team Providers Care Pants Maker Name Role Phone Wayne López MD Primary Care Provider [phone] Reason for Visit * Reason Comments Blood Management Program Encounter Details Date Type Department Care Team (Late st Contact Info) Description 09/14/2023 Documentation Patient Blood Management, [place] [address] [place] [address] Mihir Obregon RN Allergies Active Allergy Reactions Criticality Noted Date [...] money to get more. Never true 04/26/2023 [place] Depression Scale Answer Date Recorded [place] Depression Scale Total 0 09/12/2023 The thought [...] as of this encounter Progress Notes * Mihir Obregon RN - 09/14/2023 10:05 AM EDT REFERRAL - Patient Blood Management Name: Andrez Monsalve REQUESTING SERVICE: [facility] OB REASON FOR REFERRAL: new evaluation outpatient, anemia in [place]: 12/05/23 Anemia Evaluation: Latest Reference Range & Units 09/12/23 12:10 HGB 12.0 - 15.3 g/dL 8.3 (L) HCT 36.0 - 45.2 % 27.1 (L) Iron 33 - 151 ug/dL 25 (L) Iron Binding Capacity 250 - 425 ug/dL 566 (H) Transferrin Saturation Percent 15 - 55 % 4 (L) Ferritin 13 - 150 ng/mL 8 (L) Immature Reticuloctye Fraction 2.5 - 20.6 % 33.3 (H) Reticulocyte Hemoglobin 29.7 - 37.4 pg 20.6 (L) (L): Data is abnormally low (H): Data is abnormally high Current Patient Medications: Medications that may impair hemostasis: none Medications that may impair iron absorption: none Patient Refused Blood Transfusion? (e.g. Adventism): no Possible Contributing Factors: iron deficiency Treatment Recommendations: IV iron per OB MTM guidelines. PO iron not preferred route for OB patients in third trimester due to time remaining for repletion. Follow-up Recommendations: Follow up with PCP for further assessment/management of anemia post discharge. 09/13 - OB MTM submitted. Thank you for allowing Blood Management to participate in the care of this patient. documented in this encounter Plan of Treatment Upcoming Encounters Date Type Department Care Team (Late st Contact Info) Description 09/26/2023 9:15 AM EDT Office Visit Gynecology/Obstetrics [facility] [address] [place] [address] Mya Schmitz CRNP [address] [place] [address] 10/10/2023 1:30 PM EDT Office Visit Gynecology/Obstetrics [facility] [address] [place] [address] Mya Schmitz CRNP [address] [place] [address] Health Maintenance Due Date Last Done Comments [...] filedocumented as of this encounter Care Teams Pants Maker Relationship Specialty Start Date End Date Wayne López MD [address] [place] [address] PCP - General Family Medicine 10/11/20 documented as of this encounter
--- OUTSIDE RECORDS SUMMARY | 2023-12-11 08:35 | External Medical Summary | Summary of Care ---
Author Name Unknown Organization [facility] Address [address] [place] [address] Phone [phone] Care Team Providers Care Marketing Communications Assistant Name Role Phone Wayne López MD Primary Care Provider [phone] Reason for Referral * Evaluate & Treat - Unlimited Visits (Within 3 days (urgent)) - Authorized Specialty Diagnoses / Procedures Referred By Jean-Paul t Referred To Contact Pharmacist / Pharmacy Diagnoses CHERYL (iron deficiency anemia) Mya Schmitz CRNP [address] [place] [address] Referral ID Status Reason Start Date Expiration Date Visits Requested Visits Authorized [id number] Authorized Specialty Services Required 09/14/2023 99 99 Question Answer Referral Priority Within 3 days (urgent) Where should this appointment be scheduled? Fer Referring Provider Role: Specialist Specialty: plumbing hardware assembler Reason for Referral: Anemia Comments Pharmacist Medication Therapy Management: Iron deficiency anemia Mihir Obregon RN Reason for Visit * Reason Onset Date Comments Blood Management Program 09/14/2023 Encounter Details Date Type Department Care Team (Late st Contact Info) Description 09/14/2023 Telephone Patient Blood Management, [place] [address] [place] [address] Mya Schmitz CRNP [address] [place] [address] Blood Management Program Allergies Active Allergy Reactions Criticality Noted Date Comments Cheese 07/19/2019 Upset stomach, sleepy, low bp, itchy skin, rash on face, constipation, pale Garlic 07/19/2019 Rash, itchy, stomach upset documented as of this encounter (statuses as of 09/18/2023) Medications Medication Sig Dispensed Refills Start Date [...] as of this encounter (statuses as of 09/18/2023) Active Problems Problem Noted Date Diagnosed Date Iron deficiency anemia 09/14/2023 Antepartum anemia complicating 024 Overview: Hgb 8.3 at 28w. Recommend iron infusions , normal first 05/24/2023 Alopecia areata 10/11/2020 Lactose intolerance 01/20/2020 Estimated Date of Delivery Comme nts Yes 12/05/2023 Based on last me nstrual period of 02/28/2023 documented as of this encounter (statuses as of 09/18/2023) Resolved Problems Problem Noted Date Diagnosed Date [...] as of this encounter (statuses as of 09/18/2023) Immunizations Name Administration Dates Next Due Covid-19 [...] money to get more. Never true 04/26/2023 [place] Depression Scale Answer Date Recorded [place] Depression Scale Total 0 09/12/2023 The thought [...] encounter Miscellaneous Notes * Telephone Encounter - Myra Duque OSA - 09/18/2023 9:06 AM EDT Called and scheduled for all 3 per pt request * Telephone Encounter - Kimmy Burrows LPN - 09/15/2023 4:03 PM EDT [place] plan signed off. Scheduling: Please call patient to schedule for "Venofer 1/3", STORM [place], 2-hour treatment time Venofer 300 mg infusions every week for 3 doses * Telephone Encounter - Kimmy Burrows LPN - 09/14/2023 2:22 PM EDT Order received for Venofer. [place] plan [place] [id number] No prior authorization Awaiting signature before scheduling patient. * Telephone Encounter - Mihir Obregon RN - 09/14/2023 10:07 AM EDT Recommend IV iron per OB MTM guidelines. Patient agreeable, prefers infusion at [facility]. documented in this encounter Plan of Treatment Upcoming Encounters Date Type Department Care Team (Late st Contact Info) Description 09/19/2023 2:30 PM EDT Hem/Onc Treatment Hematology/Oncology Treatment, [address] [place] [phone] [place], Chair [address] Hem On[address] [place] [address] 09/26/2023 9:15 AM EDT Office Visit Gynecology/Obstetrics [facility] [address] [place] [address] Mya Schmitz CRNP [address] [place] [address] 09/26/2023 2:00 PM EDT Hem/Onc Treatment [address]ology[address] [address] 09/27/2023 10:00 AM EDT Pharmacy Pharmacy, [place] [address] [facility] [place] [address] Clinic[facility] [address] [facility] [address] 10/03/2023 2:30 PM EDT Hem/Onc Treatment Hematology/Oncology Treatment, [place] [address] [place] [address] Lou, Chair 4 Hem Onc [place] [address] [place], [place] [address] 10/10/2023 1:30 PM EDT Office Visit Gynecology/Obstetrics [facility] [address] [place] [address] Mya Schmitz CRNP [address] [place] [address] Scheduled Referrals Name Type Priority Associated Diagnoses [...] as of this encounter Visit Diagnoses Diagnosis CHERYL (iron deficiency anemia)- Primary Iron deficiency anemia, unspecified documented in this encounter Care Teams Marketing Communications Assistant Relationship Specialty Start Date End Date Wayne López MD [address] [place] [address] PCP - General Family Medicine 10/11/20 documented as of this encounter
--- OUTSIDE RECORDS SUMMARY | 2023-12-11 08:35 | External Medical Summary | Summary of Care ---
Author Name Unknown Organization [facility] Address [address] [place] [address] Phone [phone] Care Team Providers Care Belt Sander Stone Name Role Phone Wayne López MD Primary Care Provider [phone] Reason for Visit * Reason Comments Return Visit Encounter Details Date Type Department Care Team (Late st Contact Info) Description 10/10/2023 1:30 PM EDT Office Visit Gynecology/Obstetric s [place] [address] [facility] [place] [address] Mya Schmitz CRNP [address] [place] [address] Encounter for supervision of normal first in third trimester*; Antepartum anemia complicating Allergies Active Allergy Reactions Criticality Noted Date Comments Cheese 07/19/2019 Upset stomach, sleepy, low bp, itchy skin, rash on face, constipation, pale Garlic 07/19/2019 Rash, itchy, stomach upset documented as of this encounter (statuses as of 10/10/2023) Medications Medication Sig Dispensed Refills Start Date [...] as of this encounter (statuses as of 10/10/2023) Active Problems Problem Noted Date Diagnosed Date Iron deficiency anemia 09/14/2023 Antepartum anemia complicating 024 Overview: Hgb 8.3 at 28w. Recommend iron infusions , normal first 05/24/2023 Alopecia areata 10/11/2020 Lactose intolerance 01/20/2020 Estimated Date of Delivery Comme nts Yes 12/05/2023 Based on last me nstrual period of 02/28/2023 documented as of this encounter (statuses as of 10/10/2023) Resolved Problems Problem Noted Date Diagnosed Date [...] as of this encounter (statuses as of 10/10/2023) Immunizations Name Administration Dates Next Due Covid-19 [...] money to get more. Never true 04/26/2023 [place] Depression Scale Answer Date Recorded [place] Depression Scale Total 0 09/12/2023 The thought [...] Sign Reading Time Taken Comments Blood Pressure 100/72 10/10/2023 1:17 PM EDT Pulse - - Temperature - - Respiratory Rate - - Oxygen Saturation - - Inhaled Oxygen Concentration - - Weight 59.4 kg (131 lb) 10/10/2023 1:17 PM EDT Height 157.5 cm (5' 2") 10/10/2023 1:17 PM EDT Body Mass Index 23.96 10/10/2023 1:17 PM EDT documented in this encounter Progress Notes * Mya Schmitz CRNP - 10/10/2023 1:38 PM EDT 32w0d Complaints: legs feel tired and sore. 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 Had some pain last week left side under breast. Good FM. No contractions, bleeding, or LOF. Has finished iron infusions. STORM Romero documented in this encounter Nursing Notes * Kimmie Fajardo LPN - 10/10/2023 1:24 PM EDT 32w0d Denies concerns documented in this encounter Plan of Treatment Upcoming Encounters Date Type Department Care Team (Late st Contact Info) Description 10/24/2023 1:30 PM EDT Office Visit Gynecology/Obstetrics [facility] [address] [place] [address] Mya Schmitz CRNP [address] [place] [address] 11/07/2023 1:10 PM EDT Laboratory Laboratory, [facility] [address] [place] [id number] [facility] [address] [place] [address] 11/07/2023 1:30 PM EDT Office Visit Gynecology/Obstetrics [facility] [address] [place] [address] Mya Schmitz CRNP [address] [place] [address] 11/08/2023 9:30 AM EDT Pharmacy Pharmacy, [place] [address] [place], [place] [id number] [place] [address] [place], [place] [id number] 11/14/2023 1:30 PM EDT Office Visit Gynecology/Obstetrics [facility] [address] [place] [address] Mya Schmitz CRNP [address] [place] [address] 11/21/2023 1:30 PM EDT Office Visit Gynecology/Obstetrics [facility] [address] [place] [address] Mya Schmitz CRNP [address] [place] [address] 11/28/2023 1:30 PM EDT Office Visit Gynecology/Obstetrics [place] [address] [place] [address] [address] Mya Schmitz CRNP [address] [place] [address] Health Maintenance Due Date Last Done Comments [...] antepartum documented in this encounter Care Teams Belt Sander Stone Relationship Specialty Start Date End Date Wayne López MD [address] [place] [address] PCP - General Family Medicine 10/11/20 documented as of this encounter
--- OUTSIDE RECORDS SUMMARY | 2023-12-11 08:36 | External Medical Summary ---
Author Name Unknown Address Unknown Organization [id number]:LABORATORY [facility] [place] - [address] [place] [address] Laboratory Report Ordering Provider Test Date Status RAMON LLOYD 09/12/2023 12:10:28 Final Observation Date Value Abnormality Reference (Units ) Status Treponema pallidum Ab [Presence] in Serum by Immunoassay 09/12/2023 12:10:28 Nonreactive Nonreactive Final No serologic evidence of syp hilis. No additional testing clinicially indicated at this time. Consider repeat testing in 2-4 weeks if acute or primary syphilis is suspected. Performing Location LABORATORY [facility] - [address] [place] [address]
--- OUTSIDE RECORDS SUMMARY | 2023-12-11 08:36 | External Medical Summary | Summary of Care ---
Author Name Unknown Organization [facility] Address [address] [place] [address] Phone [phone] Care Team Providers Care Histopathology Technician Name Role Phone Wayne López MD Primary Care Provider [phone] Encounter Details Date Type Department Care Team (Late st Contact Info) Description 09/13/2023 Telephone Gynecology/Obstetrics [place] [address] [facility] [place] [address] Mya Schmitz CRNP [address] [facility] [place] [address] Allergies Active Allergy Reactions Criticality Noted Date Comments Cheese 07/19/2019 Upset stomach, sleepy, low bp, itchy skin, rash on face, constipation, pale Garlic 07/19/2019 Rash, itchy, stomach upset documented as of this encounter (statuses as of 09/13/2023) Medications Medication Sig Dispensed Refills Start Date [...] as of this encounter (statuses as of 09/13/2023) Active Problems Problem Noted Date Diagnosed Date Antepartum anemia complicating 024 Overview: Hgb 8.3 at 28w. Recommend iron infusions , normal first 05/24/2023 Alopecia areata 10/11/2020 Lactose intolerance 01/20/2020 Estimated Date of Delivery Comme nts Yes 12/05/2023 Based on last me nstrual period of 02/28/2023 documented as of this encounter (statuses as of 09/13/2023) Resolved Problems Problem Noted Date Diagnosed Date [...] as of this encounter (statuses as of 09/13/2023) Immunizations Name Administration Dates Next Due Covid-19 [...] money to get more. Never true 04/26/2023 [place] Depression Scale Answer Date Recorded [place] Depression Scale Total 0 09/12/2023 The thought [...] encounter Miscellaneous Notes * Telephone Encounter - Yeimy Cisse RN - 09/13/2023 12:37 PM EDT Attempted to call patient. No answer, LVM to return call. * Telephone Encounter - Mya Schmitz CRNP - 09/13/2023 12:30 PM EDT Significant anemia on 3rd tri labs. Needs iron infusions. If agreeable, route back and I'll place order documented in this encounter Plan of Treatment Upcoming Encounters Date Type Department Care Team (Late st Contact Info) Description 09/14/2023 8:00 AM EDT [facility] [address] [place] [address] [phone] [place] [address] [place] [address] [address] 09/26/2023 9:15 AM EDT Office Visit Gynecology/Obstetrics [place] [address] [place] [address] [address] Mya Schmitz CRNP [address] [place] [address] 10/10/2023 1:30 PM EDT Office Visit Gynecology/Obstetrics [place] [address] [place] [address] Mya Schmitz CRNP [address] [place] [address] Health Maintenance Due Date Last Done Comments [...] filedocumented as of this encounter Care Teams Histopathology Technician Relationship Specialty Start Date End Date Wayne López MD [address] [place] [address] PCP - General Family Medicine 10/11/20 documented as of this encounter
--- OUTSIDE RECORDS SUMMARY | 2023-12-11 08:36 | External Medical Summary ---
Author Name Unknown Address Unknown Organization [id number]:LABORATORY [facility] [place] - [address] [facility] [address] Laboratory Report Ordering Provider Test Date Status RAMON LLOYD 09/12/2023 12:10:28 Final Observation Date Value Abnormality Reference (Units ) Status WBC, Total 09/12/2023 12:10:28 10.23 4.00-10.8 0 (K/uL) Final RBC 09/12/2023 12:10:28 3.27 3.85-5.15 (M/uL) Final Hemoglobin 09/12/2023 12:10:28 8.3 Below low normal 12 .0-15.3 (g/dL) Final Anemia reflex testing trigge rs on a HGB < 12.0 for Females and HGB < 13.0 for Males in accordance with the WHO Anemia Guidelines
Anemia reflex testing triggers on a HGB < 12.0 for Females and HGB < 13.0 for Males in accordance with the WHO Anemia Guidelines HCT 09/12/2023 12:10:28 27.1 Below low normal 36. 0-45.2 (%) Final MCV 09/12/2023 12:10:28 82.9 81.5-97.5 (fL) Final MCH 09/12/2023 12:10:28 25.4 27.0-34.0 (pg) Final MCHC 09/12/2023 12:10:28 30.6 32.0-36.0 (g/dL) Final RDW 09/12/2023 12:10:28 14.6 11.5-15.5 (%) Final Platelets 09/12/2023 12:10:28 302 140-400 (K /uL) Final MPV 09/12/2023 12:10:28 11.6 6.6-11.1 ( fL) Final Nucleated erythrocytes/100 leukocytes [Ratio] in Blood by Automated count 09/12/2023 12:10:28 0 <=0 (/100 WBCs) Final Performing Location LABORATORY [facility] - [address] [facility] [address]
--- OUTSIDE RECORDS SUMMARY | 2023-12-11 08:36 | External Medical Summary | Summary of Care ---
Author Name Unknown Organization [facility] Address [address] [place] [address] Phone [phone] Care Team Providers Care Armature And Rotor Winder Name Role Phone Wayne López MD Primary Care Provider [phone] Encounter Details Date Type Department Care Team (Late st Contact Info) Description 09/12/2023 Telephone Gynecology/Obstetrics [place] [facility] [address] [facility] [place] [address] Mya Schmitz CRNP [address] [place] [address] Allergies Active Allergy Reactions Criticality Noted Date [...] Active Problems Problem Noted Date Diagnosed Date , normal first 05/24/2023 Alopecia areata 10/11/2020 [...] money to get more. Never true 04/26/2023 [place] Depression Scale Answer Date Recorded [place] Depression Scale Total 0 09/12/2023 The thought [...] encounter Miscellaneous Notes * Telephone Encounter - Jayla Allan MED ASSIST - 09/13/2023 9:31 AM EDT Appt scheduled with pts spouse. * Telephone Encounter - Yeimy Cisse RN - 09/12/2023 2:25 PM EDT Patient called and made aware. Given all directions. Aware to fast 8-10 hours prior. Her and spouseon call and verbalized understanding. Please call to schedule. * Telephone Encounter - Mya Schmitz CRNP - 09/12/2023 2:02 PM EDT Please notify pt that glucola elevated (141). Needs 3hr GTT. Orders placed. documented in this encounter Plan of Treatment Upcoming Encounters Date Type Department Care Team (Late st Contact Info) Description 09/14/2023 8:00 AM EDT [facility] [address] [facility] [place] [phone] [place] [address] [facility] [place] [address] 09/26/2023 9:15 AM EDT Office Visit Gynecology/Obstetrics [place] [address] Mya Schmitz CRNP [address] [place] [address] 10/10/2023 1:30 PM EDT Office Visit Gynecology/Obstetrics [facility] [address] [place] [address] Mya Schmitz CRNP [address] [place] [address] Scheduled Orders Name Type Priority Associated Diagnoses Orde r Schedule GESTATIONAL GLUCOSE TOLERANCE, 3 HOUR Lab Routine Abnormal glucose tolerance in mother complicating Expected: 09/13/2023 (Approximate), Expires: 09/11/2024 Health Maintenance Due Date Last Done Comments [...] as of this encounter Visit Diagnoses Diagnosis Abnormal glucose tolerance in mother complicating - Primary Abnormal maternal glucose tolerance, complicating , childbirth, or the puerperium, unspecified as to episode of care documented in this encounter Care Teams Armature And Rotor Winder Relationship Specialty Start Date End Date Wayne López MD [address] [place] [address] PCP - General Family Medicine 10/11/20 documented as of this encounter
--- OUTSIDE RECORDS SUMMARY | 2023-12-11 08:36 | External Medical Summary ---
Author Name Unknown Address Unknown Organization K0G:LABORATORY [place] [address] - [address] [place] [address] Laboratory Report Ordering Provider Test Date Status RAMON LLOYD 09/14/2023 11:23:30 Final Observation Date Value Abnormality Reference (Units ) Status Glucose [Mass/volume] in Serum or Plasma --3 hours post dose glucose 09/14/2023 11:23:30 112 70-139 (mg/dL) Final Performing Location LABORATORY [place] [address] 0 - [address] [place] [address]
--- OUTSIDE RECORDS SUMMARY | 2023-12-11 08:36 | External Medical Summary ---
Author Name Unknown Address Unknown Organization K01:LABORATORY [facility] - [address] [place] [address] Laboratory Report Ordering Provider Test Date Status RAMON LLOYD 09/12/2023 12:10:28 Final Observation Date Value Abnormality Reference (Units ) Status Ferritin 09/12/2023 12:10:28 8 Below low normal 13- 150 (ng/mL) Final Performing Location LABORATORY [facility] - [address] [place] [address]
--- OUTSIDE RECORDS SUMMARY | 2023-12-11 08:36 | External Medical Summary ---
Author Name Unknown Address Unknown Organization K0G:LABORATORY [place] [address] - [address] [place] [address] Laboratory Report Ordering Provider Test Date Status PREMARAMON 09/14/2023 08:23:40 Final Based on ACOG guideline, ges tational diabetes mellitus is diagnosed when any of the following is met:
Fasting is greater than or equal to 95 mg/dL
1 hour is greater than or equal to 180 mg/dL
2 hour is greater than or equal to 155 mg/dL
3 hour is greater than or equal to 140 mg/dL Observation Date Value Abnormality Reference (Units ) Status Glucose, fasting 09/14/2023 08:23:40 93 70- 94 (mg/dL) Final Performing Location LABORATORY [facility] [place] [address] 0 - [address] [place] [address]
--- OUTSIDE RECORDS SUMMARY | 2023-12-11 08:36 | External Medical Summary | Summary of Care ---
Author Name Unknown Organization [facility] Address [address] [place] [address] Phone [phone] Care Team Providers Care Steamer Blocker Name Role Phone Wayne López MD Primary Care Provider [phone] Encounter Details Date Type Department Care Team (Late st Contact Info) Description 09/13/2023 Telephone Gynecology/Obstetrics [place] [address] [facility] [place] [address] Mya Schmitz CRNP [address] [facility] [place] [address] Allergies Active Allergy Reactions Criticality Noted Date [...] money to get more. Never true 04/26/2023 [place] Depression Scale Answer Date Recorded [place] Depression Scale Total 0 09/12/2023 The thought [...] Encounter - Yeimy Cisse RN - 09/13/2023 4:02 PM EDT Patient and patient called back in and made aware of results and message below. Agreeable to infusions. Advised that someone will contact them to schedule and appointment. Please place referral. * Telephone Encounter - Yeimy Cisse RN [...] Description 09/14/2023 8:00 AM EDT Laboratory Laboratory, [facility] [place] [address] [facility] 132 [facility] [address] [place] [address] 09/26/2023 9:15 AM EDT Office Visit Gynecology/Obstetrics [place] [address] [place], [place] [address] Mya Schmitz CRNP [address] [place] [address] 10/10/2023 1:30 PM EDT Office Visit Gynecology/Obstetrics [place] [address] [place] [address] Mya Schmitz CRNP [address] [place] [address] Health Maintenance Due Date Last Done Comments [...] filedocumented as of this encounter Care Teams Steamer Blocker Relationship Specialty Start Date End Date Wayne López MD [address] [place] [address] PCP - General Family Medicine 10/11/20 documented as of this encounter
--- OUTSIDE RECORDS SUMMARY | 2023-12-11 08:36 | External Medical Summary ---
Author Name Unknown Address Unknown Organization K0G:LABORATORY [facility] [place] 57[address] - [address] [place] [address] Laboratory Report Ordering Provider Test Date Status RAMON LLOYD 09/14/2023 10:25:41 Final Observation Date Value Abnormality Reference (Units ) Status Glucose, 2-hr post glucose challenge 09/14/2023 10:25:41 141 70-154 (mg/dL) Final Performing Location LABORATORY [facility] 57[address] 0 - [address] [place] [address]
--- OUTSIDE RECORDS SUMMARY | 2023-12-11 08:36 | External Medical Summary ---
Author Name Unknown Address Unknown Organization K01:[facility] [address] [place] [address] Laboratory Report Ordering Provider Test Date Status RAMON LLOYD 09/12/2023 12:10:28 Final Observation Date Value Abnormality Reference (Units ) Status Creatinine 09/12/2023 12:10:28 0.5 0.5-1.0 (mg/dL) Final Glomerular filtration rate/1.73 sq M.predicted [Volume Rate/Area] in Serum, Plasma or Blood by Creatinine-based formula (CKD-EPI) 09/12/2023 12:10:28 >90 >=60 (mL/min) Final eGFR is calculated based on the CKD-EPI 2020 equation Performing Location LABORATORY [place] [address] [place] [address]
--- OUTSIDE RECORDS SUMMARY | 2023-12-11 08:36 | External Medical Summary | Summary of Care ---
Author Name Unknown Organization [facility] Address [address] [place] [address] Phone [phone] Care Team Providers Care Pediatric Pathologist Name Role Phone Wayne López MD Primary Care Provider [phone] [phone] Reason for Visit * Reason Comments Return Visit Encounter Details Date Type Department Care Team (Late st Contact Info) Description 08/15/2023 1:30 PM EST Office Visit Gynecology/[facility]st[facility] [address] [place] [address] Mya Schmitz CRNP [address] [facility] [address] Encounter for supervision of normal first in second trimester* Allergies Active Allergy Reactions Criticality Noted Date Comments Cheese 07/19/2019 Upset stomach, sleepy, low bp, itchy skin, rash on face, constipation, pale Garlic 07/19/2019 Rash, itchy, stomach upset documented as of this encounter (statuses as of 08/15/2023) Medications Medication Sig Dispensed Refills Start Date End Date Status KP Multivitamins 28-0.8 MG Oral Tablet Take by mouth. 0 Active Iron-Vitamin C 65-125 MG Oral Tablet (Vitron C) Take 1 Tablet by mouth in the morning. 90 Tablet 3 05/24/2023 Active Promethazine HCl 25 MG Oral Tablet (Phenergan)Indicatio ns:Encounter for supervision of normal first in first trimester,Nausea and vomiting during Take 1 Tablet by mouth every 6 hours as needed for Nausea. 30 Tablet 1 07/24/2023 Active predniSONE 20 MG Oral Tablet (Deltasone)Indicatio ns:URI with cough and congestion Take 1 Tablet by mouth in the morning for 5 days. 5 Tablet 0 08/12/2023 08/17/2023 Active Additional Information Patient not taking.Reported on 08/15/2023 documented as of this encounter (statuses as of 08/15/2023) Active Problems Problem Noted Date Diagnosed Date Choroid plexus cysts, , affecting care of mother, antepartum 08/01/2023 Last Assessment & Plan: I reviewed the [...] there is no clinical indication for return. , normal first 05/24/2023 Alopecia areata 10/11/2020 Lactose intolerance 01/20/2020 Estimated Date of Delivery Comme nts Yes 12/05/2023 Based on last me nstrual period of 02/28/2023 documented as of this encounter (statuses as of 08/15/2023) Resolved Problems Problem Noted Date Diagnosed Date Resolved Date Keratosis pilaris 01/20/2020 09/15/2020 documented as of this encounter (statuses as of 08/15/2023) Immunizations Name Administration Dates Next Due Covid-19 Ad26, Single Dose ([place]/J&J) 021 Seasonal Influenza Virus Vac cine, Unspecified Formulation 05/12/2020 Seasonal Influenza, PF, 6 M & above, IM , (FluLaval or Fluzone) 05/12/2020 documented as of this encounter Social History [...] Date Recorded PHQ Adult Total Score 0 09/16/2020 Hunger Vital Sign Answer Date Recorded Within the past 12 months, y ou worried that your food would run out before you got the money to buy more. Never true 04/26/20 23 Within the past 12 months, t he food you bought just didn't last and you didn't have money to get more. Never true 04/26/2023 [place] Depression Scale Answer Date Recorded [place] Depression Scale Total 0 04/26/2023 The thought of harming myself has occurred to me . Never 04/26/2023 Estimated Date of Delivery Comme nts [...] Sign Reading Time Taken Comments Blood Pressure 102/58 08/15/2023 1:32 PM EST Pulse - - Temperature - - Respiratory Rate - - Oxygen Saturation - - Inhaled Oxygen Concentration - - Weight 57.2 kg (126 lb) 08/15/2023 1:32 PM EST Height 157.5 cm (5' 2") 08/15/2023 1:32 PM EST Body Mass Index 23.05 08/15/2023 1:32 PM EST documented in this encounter Progress Notes * Mya Schmitz CRNP - 08/15/2023 2:11 PM EST 24w Getting over a cold. Was given prednisone, but opted not to take it. Used Afrin for 2 days, still taking Delsym. No other concerns. Baby is active. No contractions or bleeding. Had [facility] visit for [facility], no need to return. STORM Romero documented in this encounter Nursing Notes * Kimmie Fajardo LPN - 08/15/2023 1:46 PM EST 24w0d Denies concerns documented in this encounter Plan of Treatment Upcoming Encounters Date Type Department Care Team (Late st Contact Info) Description 09/12/2023 11:20 AM EDT [facility] [address] [place] [phone] [facility] [address] [place] [address] 09/12/2023 11:30 AM EDT Office Visit Gynecology/Obstetrics [facility] [address] [place] [address] Kimmy Mcdonald CRNP [address] [place] [address] Scheduled Orders Name Type Priority Associated Diagnoses Orde r Schedule 50-G GESTATIONAL GLUCOSE, 1 HOUR Lab Routine Encounter for supervision of normal first in second trimester Expected: 09/15/2023 (Approximate), Expires: 08/14/2024 CBC WITH WBC DIFFERENTIAL AND ANEMIA REFLEX WORKUP Lab Routine Encounter for supervision of normal first in second trimester Expected: 09/15/2023 (Approximate), Expires: 08/14/2024 SYPHILIS ANTIBODY SCREEN WITH REFLEX TO RPR Lab Routine Encounter for supervision of normal first in second trimester Expected: 09/15/2023 (Approximate), Expires: 08/14/2024 Health Maintenance Due Date Last Done Comments DTaP,Tdap,and Td Vaccines (1 - Tdap) 01/02/2012 Hepatitis B (1 of 3 - 19+ 3-dose series) 01/02/2012 Depression Screening 09/16/2021 09/16/2020 COVID-19 Vaccine (2 - 2022-2 4 season) 2023 09/21/2020 Influenza Vaccine (FLU shot) (#1) 2023 05/12/2020, 05/12/2020 Pap Smear 04/26/2026 04/26/2023, 05/12/2020 Cervical Cancer Screening 04/26/2028 HPV/Co-Test 04/26/2028 04/26/2023 GARDASIL-HPV IMMUNIZATION SERIES Aged Out No longer [...] Encounter for supervision of normal first in second trimester- Primary Supervision of normal first documented in this encounter Care Teams Pediatric Pathologist Relationship Specialty Start Date End Date Wayne López MD [address] [place] [address] PCP - General Family Medicine 10/11/20 documented as of this encounter
--- OUTSIDE RECORDS SUMMARY | 2023-12-11 08:36 | External Medical Summary | Summary of Care ---
Author Name Unknown Organization [facility] Address [address] [place] [address] Phone [phone] Care Team Providers Care Administrative Fellow Name Role Phone Wayne López MD Primary Care Provider [phone] Reason for Visit * Reason Comments Return Visit Encounter Details Date Type Department Care Team (Late st Contact Info) Description 09/12/2023 11:30 AM EDT Office Visit Gynecology/Obstetric s [place] [address] [facility] [place] [address] Kimmy Mcdonald CRNP [address] [place] [address] Encounter for supervision of normal first in third trimester*; Encounter for supervision of normal first in first trimester; Nausea and vomiting during ; Need for prophylactic vaccination with combined taujqsozio-qbptprr-vc rtussis (DTP) vaccine Allergies Active Allergy Reactions Criticality Noted Date Comments Cheese 07/19/2019 Upset stomach, sleepy, low bp, itchy skin, rash on face, constipation, pale Garlic 07/19/2019 Rash, itchy, stomach upset documented as of this encounter (statuses as of 09/12/2023) Medications Medication Sig Dispensed Refills Start Date End Date Status KP Multivitamins 28-0.8 MG Oral Tablet Take by mouth. 0 Active Promethazine HCl 25 MG Oral Tablet (Phenergan)Indicat ions:Encounter for supervision of normal first in first trimester,Nausea and vomiting during Take 1 Tablet by mouth every 6 hours as needed for Nausea. 30 Tablet 1 09/12/2023 Active Iron-Vitamin C 65-125 MG Oral Tablet (Vitron C) Take 1 Tablet by mouth in the morning. 90 Tablet 3 05/24/2023 4 Discontinued predniSONE 20 MG Oral Tablet (Deltasone)Indicat ions:URI with cough and congestion Take 1 Tablet by mouth in the morning for 5 days. 5 Tablet 0 08/12/2023 4 Discontinued Promethazine HCl 25 MG Oral Tablet (Phenergan)Indicat ions:Encounter for supervision of normal first in first trimester,Nausea and vomiting during Take 1 Tablet by mouth every 6 hours as needed for Nausea. 30 Tablet 1 08/29/2023 4 Discontinued(Ref ill) documented as of this encounter (statuses as of 09/12/2023) Active Problems Problem Noted Date Diagnosed Date , normal first 05/24/2023 Alopecia areata 10/11/2020 Lactose intolerance 01/20/2020 Estimated Date of Delivery Comme nts Yes 12/05/2023 Based on last me nstrual period of 02/28/2023 documented as of this encounter (statuses as of 09/12/2023) Resolved Problems Problem Noted Date Diagnosed Date [...] as of this encounter (statuses as of 09/12/2023) Immunizations Name Administration Dates Next Due Covid-19 [...] money to get more. Never true 04/26/2023 [place] Depression Scale Answer Date Recorded [place] Depression Scale Total 0 09/12/2023 The thought [...] Sign Reading Time Taken Comments Blood Pressure 98/56 09/12/2023 11:25 AM EDT Pulse - - Temperature - - Respiratory Rate - - Oxygen Saturation - - Inhaled Oxygen Concentration - - Weight 59 kg (130 lb) 09/12/2023 11:25 AM EDT Height - - Body Mass Index 23.78 08/15/2023 1:32 PM EST documented in this encounter Progress Notes * Kimmy Mcdonald CRNP - 09/12/2023 11:28 AM EDT 28w0d Doing well. Good movement - discussed [facility] and when to call with concerns. No bleeding or cramping. Some R upper back discomfort x2 days, resolved w/Tylenol and heat. Likely MSK, reassured. Completing labs today, accepts Tdap. 2 week return STORM Lawrence documented in this encounter Nursing Notes * Mora Klein LPN - 09/12/2023 11:42 AM EDT Patient here for tdap injection. Patient doing well no complaints. Injection given IM as ordered. Patient tolerated well. Patient to follow up as directed. Patient instructed to call if any complications. Patient verbalized understanding of instructions given. Injection site: Right Deltoid Medication Source: Dispensed stock medication * Mora Klein LPN - 09/12/2023 11:26 AM EDT 28w0d Denies vaginal bleeding/rom + movement Gtt today Tdap today documented in this encounter Plan of Treatment Upcoming Encounters Date Type Department Care Team (Late st Contact Info) Description 09/26/2023 9:15 AM EDT Office Visit [facility]necology[facility]Obst[facility] [address] [address] Mya Schmitz CRNP [address] [place] [address] 10/10/2023 1:30 PM EDT Office Visit Gynecology/Obstetrics [place] [address] [address] Mya Schmitz CRNP [address] [place] [address] Health Maintenance Due Date Last Done Comments Hepatitis B (1 of 3 - 19+ 3-dose series) 01/02/2012 COVID-19 Vaccine (2 - 2023-2 4 season) 2023 09/21/2020 Influenza Vaccine (FLU shot) (Season Ended) 2024 05/12/2020, 05/12/2020 Depression Screening 09/11/2024 09/12/2023, 09/16/2020 Pap Smear 04/26/2026 04/26/2023, 05/12/2020 Cervical Cancer [...] third trimester- Primary Supervision of normal first Encounter for supervision of normal first in first trimester Supervision of normal first Nausea and vomiting during Need for prophylactic vaccination with combined sffqdwqdpt-fxhwxtk-qvotgvmnl (DTP) vaccine documented in this encounter Care Teams Administrative Fellow Relationship Specialty Start Date End Date Wayne López MD [address] [address] PCP - General Family Medicine 10/11/20 documented as of this encounter
--- OUTSIDE RECORDS SUMMARY | 2023-12-11 08:36 | External Medical Summary ---
Author Name Unknown Address Unknown Organization [id number] [place] [address] [place] [address] Laboratory Report Ordering Provider Test Date Status RAMON LLOYD 09/12/2023 12:10:28 Final Observation Date Value Abnormality Reference (Units ) Status Iron 09/12/2023 12:10:28 25 Below low normal 33-151 (ug/dL) Final Iron-binding capacity 09/12/2023 12:10:28 566 Above high normal 250-425 (ug/dL) Final Transferrin Sat % 09/12/2023 12:10:28 4 Below low normal 15-55 (%) Final Performing Location [facility] [place] [address] [place] [address]
--- OUTSIDE RECORDS SUMMARY | 2023-12-11 08:36 | External Medical Summary ---
Author Name Unknown Address Unknown Organization [id number] [address] [place] [address] Laboratory Report Ordering Provider Test Date Status RAMON LLOYD 09/12/2023 12:10:28 Final Observation Date Value Abnormality Reference (Units ) Status Glucose [Moles/volume] in Serum or Plasma --1 hour post 50 g glucose PO 09/12/2023 12:10:28 141 Above high normal 70-129 (mg/dL) Final Performing Location [facility] [address] [place] [address]
--- OUTSIDE RECORDS SUMMARY | 2023-12-11 08:36 | External Medical Summary | Summary of Care ---
Author Name Unknown Organization [facility] Address [address] [place] [address] Phone [phone] Care Team Providers Care Acute Care Nurse Practitioner Name Role Phone Wayne López MD Primary Care Provider [phone] Reason for Visit * Reason Comments Outpatient Testing Encounter Details Date Type Department Care Team (Late st Contact Info) Description 09/12/2023 11:20 AM EDT Laboratory Laboratory, [facility] [address] [place] [address] [facility] [address] [place] [address] Encounter for supervision of normal first in second trimester Allergies Active Allergy Reactions Criticality Noted Date Comments Cheese 07/19/2019 Upset stomach, sleepy, low bp, itchy skin, rash on face, constipation, pale Garlic 07/19/2019 Rash, itchy, stomach upset documented as of this encounter (statuses as of 09/12/2023) Medications Medication Sig Dispensed Refills Start Date End Date Status Multivitamins 28-0.8 MG Oral Tablet Take by mouth. 0 Active documented as of this encounter (statuses [...] money to get more. Never true 04/26/2023 [place] Depression Scale Answer Date Recorded [place] Depression Scale Total 0 09/12/2023 The thought [...] 09/26/2023 9:15 AM EDT Office Visit Gynecology/Obstetrics [facility] [address] [place] [address] Mya Schmitz CRNP [address] [place] [address] 10/10/2023 1:30 PM EDT Office Visit Gynecology/Obstetrics [facility] [address] [place] [address] Mya Schmitz CRNP [address] [place] [address] Pending Results Name Type Priority Associated Diagnoses Date /Time 50-G GESTATIONAL GLUCOSE, 1 HOUR Lab Routine Encounter for supervision of normal first in second trimester 09/12/2023 12:10 PM EDT CBC WITH WBC DIFFERENTIAL AND ANEMIA REFLEX WORKUP Lab Routine Encounter for supervision of normal first in second trimester 09/12/2023 12:10 PM EDT SYPHILIS ANTIBODY SCREEN WITH REFLEX TO RPR Lab Routine Encounter for supervision of normal first in second trimester 09/12/2023 12:10 PM EDT ANEMIA CBC Lab Routine Encounter for supervision of normal first in second trimester 09/12/2023 12:10 PM EDT DIFFERENTIAL, AUTOMATED Lab Routine Encounter for supervision of normal first in second trimester 09/12/2023 12:10 PM EDT ANEMIA REFLEX CHEMISTRY HOLD Lab Routine Encounter for supervision of normal first in second trimester 09/12/2023 12:10 PM EDT SYPHILIS ANTIBODY SCREEN Lab Routine Encounter for supervision of normal first in second trimester 09/12/2023 12:10 PM EDT Health Maintenance Due Date Last [...] supervision of normal first in second trimester Supervision of normal first documented in this encounter Care Teams Acute Care Nurse Practitioner Relationship Specialty Start Date End Date Wayne López MD [address] [place] [address] PCP - General Family Medicine 10/11/20 documented as of this encounter
--- OUTSIDE RECORDS SUMMARY | 2023-12-11 08:36 | External Medical Summary | Summary of Care ---
Author Name Unknown Organization [facility] Address [address] [place] [address] Phone [phone] Care Team Providers Care Tie Worker Name Role Phone Wayne López MD Primary Care Provider [phone] Reason for Visit * Evaluate & Treat - Unlimited Visits (Within 10 days (routine)) - Authorized Specialty Diagnoses / Procedures Referred By Jean-Paul t Referred To Contact Obstetrics/Gynecology / Maternal Medicine Diagnoses Choroid plexus cyst of fetus affecting care of mother, antepartum, single or unspecified fetus Mya Schmitz CRNP [address] [place] [address] Referral ID Status Reason Start Date Expiration Date Visits Requested Visits Authorized [id number] Authorized Specialty Services Required 07/19/2023 [id number] Encounter Details Date Type Department Care Team (Late st Contact Info) Description 08/01/2023 8:30 AM EST Office Visit Exchange [facility] OB Maternal Medicine [facility] Laine Bass [address] [place] [address] [address] [place] [address] Kolton Middleton MD [address] [place] [address] Choroid plexus cyst of fetus affecting care of mother, antepartum, single or unspecified fetus* Allergies Active Allergy Reactions Criticality Noted Date Comments Cheese 07/19/2019 Upset stomach, sleepy, low bp, itchy skin, rash on face, constipation, pale Garlic 07/19/2019 Rash, itchy, stomach upset documented as of this encounter (statuses as of 08/01/2023) Medications Medication Sig Dispensed Refills Start Date End Date Status KP Multivitamins 28-0.8 MG Oral Tablet Take by mouth. 0 Active Iron-Vitamin C 65-125 MG Oral Tablet (Vitron C) Take 1 Tablet by mouth in the morning. 90 Tablet 3 05/24/2023 Active Additional Information Patient not taking.Reported on 06/21/2023 Promethazine HCl 25 MG Oral Tablet (Phenergan)Indicatio ns:Encounter for supervision of normal first in first trimester,Nausea and vomiting during Take 1 Tablet by mouth every 6 hours as needed for Nausea. 30 Tablet 1 07/24/2023 Active documented as of this encounter (statuses as of 08/01/2023) Active Problems Problem Noted Date Diagnosed Date [...] Comme nts Yes 12/05/2023 Based on last al nstrual period of 02/28/2023 documented as of this encounter (statuses as of 08/01/2023) Resolved Problems Problem Noted Date Diagnosed Date Resolved Date Keratosis pilaris 01/20/2020 09/15/2020 documented as of this encounter (statuses as of 08/01/2023) Immunizations Name Administration Dates Next Due Covid-19 [...] money to get more. Never true 04/26/2023 [place] Depression Scale Answer Date Recorded [place] Depression Scale Total 0 04/26/2023 The thought [...] as of this encounter Progress Notes * Kolton Middleton MD - 08/01/2023 8:25 AM EST MATERNAL MEDICINE VISIT Andrez Monsalve is at 22w0d who presents to [facility] for an ultrasound and follow-up of her high risk . The patient is currently 22 weeks and 0 days gestation comes in for an evaluation of anatomy.She had an ultrasound with Radiology on July 20 that showed bilateral choroid plexus cyst. I did review that ultrasound in on images 8 and 9, there are choroid plexus cyst identified. Of note, she has a low risk noninvasive screen in this . She is being seen today by Maternal- Medicine for the following reasons: Problem List Items Addressed This Visit Choroid plexus cysts, , affecting care of mother, antepartum - Primary I reviewed the ultrasound with her. The anatomy that was visualized appears unremarkable and I did not see any choroid plexus cyst. The biometry is appropriate for the gestational age andthe amniotic fluid volume is subjectively normal. The fetus is in the vertex presentation. I reviewed my interpretation of her ultrasound that she had a Radiology, as well as her low risk noninvasive screen. At this point, there is no clinical indication for return. We reviewed today's ultrasound findings. (For full report, please refer to ultrasound report provided separately). Ms. Monsalve's questions were answered to her satisfaction. Ms. Monsalve was instructed to notify her primary service unit operator oil well if she felt regular contractions(approximately every 10 mins), leaking of fluid, vaginal bleeding or if movement decreased. Thank you for allowing us to participate in the care of this patient. Please call with any questions. Kolton Middleton MD 08/01/2023 8:25 AM documented in this encounter Miscellaneous Notes * Assessment & Plan Note - Kolton Middleton MD - 08/01/2023 9:13 AM EST Associated Problem(s): Choroid plexus cysts, , affecting care of mother, antepartum I reviewed the ultrasound with her. The anatomy that was visualized appears unremarkable and I did not see any choroid plexus cyst. The biometry is appropriate for the gestational age andthe amniotic fluid volume is subjectively normal. The fetus is in the vertex presentation. I reviewed my interpretation of her ultrasound that she had a Radiology, as well as her low risk noninvasive screen. At this point, there is no clinical indication for return. documented in this encounter Plan of Treatment Upcoming Encounters Date Type Department Care Team (Late st Contact Info) Description 08/15/2023 1:30 PM EST Office Visit Gynecology/Obstetrics [place] [address] [address] Mya Schmitz CRNP [address] [place] [address] Scheduled Referrals Name Type Priority Associated Diagnoses Orde r Schedule MATERNAL MEDICINE REFERRAL OP Referral Within 10 days (routine) Choroid plexus cyst of fetus affecting care of mother, antepartum, single or unspecified fetus Ordered: 07/19/2023 Health Maintenance Due Date Last Done Comments [...] as of this encounter Visit Diagnoses Diagnosis Choroid plexus cyst of fetus affecting care of mother, antepartum, single or unspecified fetus- Primary documented in this encounter Care Teams Tie Worker Relationship Specialty Start Date End Date Wayne López MD [address] [facility] [place] [address] PCP - General Family Medicine 10/11/20 documented as of this encounter
--- OUTSIDE RECORDS SUMMARY | 2023-12-11 08:36 | External Medical Summary | Summary of Care ---
Author Name Unknown Organization [facility] Address [address] [place] [address] Phone [phone] Care Team Providers Care Steeplechase Jockey Name Role Phone Wayne López MD Primary Care Provider [phone] Reason for Visit * Reason Onset Date Comments Medication Refill 08/26/2023 Encounter Details Date Type Department Care Team (Late st Contact Info) Description 08/26/2023 Refill Gynecology/Obstetrics [facility] [address] [place] [address] Prema Schmitz CRNP [address] [place] [address] Encounter for supervision of normal first in first trimester; Nausea and vomiting during Allergies Active Allergy Reactions Criticality Noted Date Comments Cheese 07/19/2019 Upset stomach, sleepy, low bp, itchy skin, rash on face, constipation, pale Garlic 07/19/2019 Rash, itchy, stomach upset documented as of this encounter (statuses as of 08/29/2023) Medications Medication Sig Dispensed Refills Start Date [...] needed for Nausea. 30 Tablet 1 08/29/2023 Active Promethazine HCl 25 MG Oral Tablet (Phenergan)Indicatio ns:Encounter for supervision of normal first in first trimester,Nausea and vomiting during Take 1 Tablet by mouth every 6 hours as needed for Nausea. 30 Tablet 1 07/24/2023 08/26/2023 Discontinued (Refill) documented as of this encounter (statuses as of 08/29/2023) Active Problems Problem Noted Date Diagnosed Date [...] as of this encounter (statuses as of 08/29/2023) Resolved Problems Problem Noted Date Diagnosed Date Resolved Date Keratosis pilaris 01/20/2020 09/15/2020 documented as of this encounter (statuses as of 08/29/2023) Immunizations Name Administration Dates Next Due Covid-19 [...] money to get more. Never true 04/26/2023 [place] Depression Scale Answer Date Recorded [place] Depression Scale Total 0 04/26/2023 The thought [...] encounter Miscellaneous Notes * Telephone Encounter - Prema Schmitz CRNP - 08/29/2023 8:12 AM EDTSigned Prescriptions: Disp Refills Promethazine HCl 25 MG Oral Tablet (Phener*30 Tab*1 Sig: Take 1 Tablet by mouth every 6 hours as needed for Nausea. Authorizing Provider: PREMA SCHMITZ * Telephone Encounter - Dawn Marcum LPN - 08/28/2023 3:52 PM EDTPending Prescriptions: Disp Refills Promethazine HCl 25 MG Oral Tablet (Phener*30 Tab*1 Sig: Take 1Tablet by mouth every 6 hours as needed for Nausea. documented in this encounter Plan of Treatment Upcoming Encounters Date Type Department Care Team (Late st Contact Info) Description 09/12/2023 11:20 AM EDT [facility] [address] [place] [id number] [facility] [address] [place] [address] 09/12/2023 11:30 AM EDT Office Visit Gynecology/Obstetrics [place] [facility] [address] [place] [address] Kimmy Mcdonald CRNP [address] [place] [address] Health Maintenance Due Date Last Done Comments [...] during documented in this encounter Care Teams Steeplechase Jockey Relationship Specialty Start Date End Date Wayne López MD [address] [place] [address] PCP - General Family Medicine 10/11/20 documented as of this encounter
--- OUTSIDE RECORDS SUMMARY | 2023-12-11 08:36 | External Medical Summary ---
Author Name Unknown Address Unknown Organization K0G:[facility] [address] - [address] [place] [address] Laboratory Report Ordering Provider Test Date Status RAMON LOLYD 09/14/2023 09:27:06 Final Observation Date Value Abnormality Reference (Units ) Status Glucose [Mass/volume] in Serum or Plasma --1 hour post dose glucose 09/14/2023 09:27:06 169 70-179 (mg/dL) Final Performing Location [facility] [place] [address] [place] [address]
--- OUTSIDE RECORDS SUMMARY | 2023-12-11 08:36 | External Medical Summary | Summary of Care ---
Author Name Unknown Organization [facility] Address [address] [place] [address] Phone [phone] Care Team Providers Care Manager Social Work Name Role Phone Wayne López MD Primary Care Provider [phone] Reason for Visit * Reason Comments Acute Pt here for complain ts of cold/flu since Monday. Pt can hardly talk now Encounter Details Date Type Department Care Team (Latest Contact Info) Description 08/12/2023 8:15 AM EST Convenient Care Visit [facility] [address] [place] [address] Fabi Romero PA-C [address], [place] [id number] URI with cough and congestion* Allergies Active Allergy Reactions Criticality Noted Date Comments Cheese 07/19/2019 Upset stomach, sleepy, low bp, itchy skin, rash on face, constipation, pale Garlic 07/19/2019 Rash, itchy, stomach upset documented as of this encounter (statuses as of 08/12/2023) Medications Medication Sig Dispensed Refills Start Date End Date Status KP Multivitamins 28-0.8 MG Oral Tablet Take by mouth. 0 Active Iron-Vitamin C 65-125 MG Oral Tablet (Vitron C) Take 1 Tablet by mouth in the morning. 90 Tablet 3 05/24/2023 Active Promethazine HCl 25 MG Oral Tablet (Phenergan)Indication s:Encounter for supervision of normal first in first trimester,Nausea and vomiting during Take 1 Tablet by mouth every 6 hours as needed for Nausea. 30 Tablet 1 07/24/2023 Active predniSONE 20 MG Oral Tablet (Deltasone)Indication s:URI with cough and congestion Take 1 Tablet by mouth in the morning for 5 days. 5 Tablet 0 08/12/2023 08/17/2023 Active documented as of this encounter (statuses as of 08/12/2023) Active Problems Problem Noted Date Diagnosed Date [...] as of this encounter (statuses as of 08/12/2023) Resolved Problems Problem Noted Date Diagnosed Date Resolved Date Keratosis pilaris 01/20/2020 09/15/2020 documented as of this encounter (statuses as of 08/12/2023) Immunizations Name Administration Dates Next Due Covid-19 [...] money to get more. Never true 04/26/2023 [place] Depression Scale Answer Date Recorded [place] Depression Scale Total 0 04/26/2023 The thought [...] Sign Reading Time Taken Comments Blood Pressure 110/60 08/12/2023 8:16 AM EST Pulse 115 08/12/2023 8:16 AM EST Temperature 36.1 C (97 F) 08/12/2023 8:16 AM EST Respiratory Rate 16 08/12/2023 8:16 AM EST Oxygen Saturation 98% 08/12/2023 8:16 AM EST Inhaled Oxygen Concentration - - Weight 57.2 kg (126 lb 3.2 oz) 08/12/2023 8:16 A M EST Height 157.5 cm (5' 2") 08/12/2023 8:16 AM EST Body Mass Index 23.08 08/12/2023 8:16 AM EST documented in this encounter Patient Instructions * Patient Instructions* Fabi Romero PA-C - 08/12/2023 8:50 AM EST Afrin spray: Instill 2 to 3 sprays into each nostril twice daily (maximum dose: 2 doses/24 hours).for up to 2 days Flonase at night: 2 sprays per nostril Saline nasal spray can help during day as well Prednisone: 1 tab in the morning x 5 d Discussed this is viral infection and will need to treat symptoms, let it run its course, Fluids, time Can take a few days but sometimes up to a couple weeks and mild cough can last even longer If symptoms worsen a lot, any SOB, wheezing, return, if severe, go to ER documented in this encounter Progress Notes * Fabi Romero PA-C - 08/12/2023 8:21 AM EST Subjective: Nursing Notes: Francy Joy LPN 08/12/23 0818 Sign at exiting of workspace Patient spelled last name and verbalized birthdate to verify identity. Chief Complaint Patient presents with Acute Pt here for complaints of cold/flu since Monday. Pt can hardly talk now Sx are fever, cough, stuffy nose, ear, and no voice Taking delsym, acetaminophen and Cepacol, hard time sleeping due to not breathing through nose Some shortness of breath Worst part is eating and drinking water, throat very sore, hard time swallowing and talking Has to mouth breath all the time Drinking a lot of water as she can Pt about 25 weeks No issues w no sick contacts at home. Sig med hx/risk factors: pt is 25 weeks no flu shot this year. Review of Systems Constitutional: Positive for fatigue. Negative for activity change, appetite change and fever. HENT: Positive for congestion, ear pain (pressure), postnasal drip, rhinorrhea, sinus pressure, sore throat and voice change (loss). Negative for sinus pain. Eyes: Negative for discharge and redness. Respiratory: Positive for cough (dry). Negative for choking, chest tightness, shortness of breath and wheezing. Cardiovascular: Negative for chest pain. Gastrointestinal: Negative for abdominal pain, diarrhea, nausea and vomiting. Musculoskeletal: Negative for arthralgias, neck pain and neck stiffness. Allergic/Immunologic: Negative for environmental allergies. Neurological: Negative for dizziness and headaches. Hematological: Negative for adenopathy. PMH: Patient Active Problem List Diagnosis Code Lactose intolerance E73.9 Alopecia areata L63.9 , normal first Z34.00 Choroid plexus cysts, , affecting care of mother, antepartum O35.03X0 Current Outpatient Medications Medication Sig Dispense Refill KP Multivitamins 28-0.8 MG Oral Tablet Take by mouth. Iron-Vitamin C 65-125 MG Oral Tablet (Vitron C) Take 1 Tablet by mouth in the morning. 90 Tablet 3 Promethazine HCl 25 MG Oral Tablet (Phenergan) Take 1 Tablet by mouth every 6 hours as needed for Nausea. 30 Tablet 1 predniSONE 20 MG Oral Tablet (Deltasone) Take 1 Tablet by mouth in the morning for 5 days. 5 Tablet0 No current facility-administered medications for this visit. Past Medical History: Diagnosis Date Alopecia areata 10/11/2020 Known health problems: none Past Surgical History: Procedure Laterality Date HYSTEROSCOPY W/BIOPSY AND/OR POLYPECTOMY W/WO D&C N/A 10/27/2022 HYSTEROSCOPY WITH BIOPSY AND/OR POLYPECTOMY WITH OR WITHOUT D&C performed by Maeve Rueda MD at OR [facility] NONE Review of patient's allergies indicates: Allergen Reactions Cheese Upset stomach, sleepy, low bp, itchy skin, rash on face, constipation, pale Garlic Rash, itchy, stomach upset Objective: BP 110/60 | Pulse 115 | Temp 36.1 C (97 F) | Resp 16 | Ht 1.575 m (5' 2") | Wt 57.2 kg (126 lb 3.2 oz) | LMP 02/28/2023 | SpO2 98% | BMI 23.08 kg/m | BSA 1.58 m Physical Exam Constitutional: General: She is not in acute distress. Appearance: Normal appearance. She is normal weight. She is not ill-appearing. HENT: Head: Normocephalic. Right Ear: Tympanic membrane, ear canal and external ear normal. Left Ear: Tympanic membrane, ear canal and external ear normal. Nose: Congestion and rhinorrhea present. Mouth/Throat: Mouth: Mucous membranes are moist. Pharynx: Posterior oropharyngeal erythema (mild) present. No oropharyngeal exudate. Comments: No voice Eyes: General: Right eye: No discharge. Left eye: No discharge. Extraocular Movements: Extraocular movements intact. Conjunctiva/sclera: Conjunctivae normal. Cardiovascular: Rate and Rhythm: Normal rate and regular rhythm. Heart sounds: Normal heart sounds. Pulmonary: Effort: Pulmonary effort is normal. No respiratory distress. Breath sounds: Normal breath sounds. No wheezing or rhonchi. Musculoskeletal: General: Normal range of motion. Cervical back: Normal range of motion. Skin: Findings: No rash. Neurological: Mental Status: She is alert and oriented to person, place, and time. Psychiatric: Mood and Affect: Mood normal. Thought Content: Thought content normal. Judgment: Judgment normal. ASSESSMENT/PLAN: URI with cough and congestion (Primary) - predniSONE 20 MG Oral Tablet (Deltasone); Take 1 Tablet by mouth in the morning for 5 days. Return instruction reviewed with pt in detail. Reasons to report to the ED were also reviewed. Voiced understanding Advised to follow up if no improvement in 3-5days. Fabi Romero PA-C documented in this encounter Nursing Notes * Francy Joy LPN - 08/12/2023 8:15 AM EST Patient spelled last name and verbalized birthdate to verify identity. Chief Complaint Patient presents with Acute Pt here for complaints of cold/flu since Monday. Pt can hardly talk now documented in this encounter Plan of Treatment Upcoming Encounters Date Type Department Care Team (Late st Contact Info) Description 08/15/2023 1:30 PM EST Office Visit Gynecology/Obstetrics [facility] [address] [place] [address] Mya Schmitz CRNP [address] [place] [address] Health Maintenance Due Date Last Done Comments [...] as of this encounter Visit Diagnoses Diagnosis URI with cough and congestion- Primary documented in this encounter Care Teams Manager Social Work Relationship Specialty Start Date End Date Wayne López MD [address] [place] [address] PCP - General Family Medicine 10/11/20 documented as of this encounter
--- OUTSIDE RECORDS SUMMARY | 2023-12-11 08:36 | External Medical Summary ---
Author Name Unknown Address Unknown Organization K01:[facility] [place] [address] [facility] [address] Laboratory Report Ordering Provider Test Date Status RAMON LLOYD 09/12/2023 12:10:28 Final Observation Date Value Abnormality Reference (Units ) Status SYNC LEUKOCYTES IN BLOOD BY AUTOMATED COUNT 09/12/2023 12:10:28 10.23 4.00-10.80 (K/uL) Final Segs 09/12/2023 12:10:28 79.3 Above high normal 40.0-75.0 (%) Final Lymphs % 09/12/2023 12:10:28 13.0 Below low normal 18.0-42.0 (%) Final Monos 09/12/2023 12:10:28 4.5 1.0-11.0 (%) Final Eosinophils 09/12/2023 12:10:28 0.8 0.0-6.0 (%) Final Basos 09/12/2023 12:10:28 0.4 0.0-2.0 (%) Final Immature Granulocyte, Percent 09/12/2023 12:10:28 2.0 0.0-2.0 (%) Final Absolute Segs 09/12/2023 12:10:28 8.12 Above high normal 1.80-7.70 (K/uL) Final Lymphs, absolute 09/12/2023 12:10:28 1.33 1.00-4.80 (K/ul) Final Monos, Abs 09/12/2023 12:10:28 0.46 0.00-1.10 (K/uL) Final Eos, Abs 09/12/2023 12:10:28 0.08 0.00-0.70 (K/uL) Final Basos, Abs 09/12/2023 12:10:28 0.04 0.00-0.20 (K/uL) Final Immature Granulocytes, Number 09/12/2023 12:10:28 0.20 0.00-0.20 (K/uL) Final Performing Location [facility] - [facility] [address] [facility] [address]
--- OUTSIDE RECORDS SUMMARY | 2023-12-11 08:36 | External Medical Summary | Summary of Care ---
Author Name Unknown Organization [facility] Address [address] [place] [address] Phone [phone] Care Team Providers Care Reconciliation Accountant Name Role Phone Wayne López MD Primary Care Provider [phone] Reason for Referral * (Within 3 days (urgent)) Specialty Diagnoses / Procedures Referred By Jean-Paul t Referred To Contact Prema Schmitz CRNP [address] [place] [address] Referral ID Status Reason Start Date Expiration Date Visits Re quested Visits Authorized Question Answer Referral Priority Within 3 days (urgent) Where should this appointment be scheduled? [facility] Encounter Details Date Type Department Care Team (Late st Contact Info) Description 09/13/2023 Telephone Gynecology/Obstetrics [facility] [address] [place] [address] Prema Schmitz CRNP [address] [place] [address] Allergies Active Allergy Reactions Criticality Noted Date [...] money to get more. Never true 04/26/2023 [place] Depression Scale Answer Date Recorded [place] Depression Scale Total 0 09/12/2023 The thought [...] encounter Miscellaneous Notes * Addendum Note - Prema Schmitz CRNP - 09/14/2023 8:45 AM EDTAddended by: PREMA SCHMITZ on: 09/14/2023 08:45 AM Modules accepted: Orders * Telephone Encounter - Prema Schmitz CRNP - 09/14/2023 8:45 AM EDT Order placed. * Telephone Encounter - Yeimy Cisse RN [...] to return call. * Telephone Encounter - Prema Schmitz CRNP - 09/13/2023 12:30 PM EDT Significant anemia on 3rd tri labs. Needs iron infusions. If agreeable, route back and I'll place order documented in this encounter Plan of Treatment Upcoming Encounters Date Type Department Care Team (Late st Contact Info) Description 09/26/2023 9:15 AM EDT Office Visit Gynecology/Obstetrics [facility] [address] [place] [address] Prema Schmitz CRNP [address] [place] [address] 10/10/2023 1:30 PM EDT Office Visit Gynecology/Obstetrics [facility] [address] [place] [address] Prema Schmitz CRNP [address] [place] [address] Scheduled Referrals Name Type Priority Associated Diagnoses Orde r Schedule BLOOD MANAGEMENT REFERRAL Referral Within 3 days (urgent) Antepartum anemia complicating Ordered: 09/14/2023 Health Maintenance Due Date Last [...] as of this encounter Visit Diagnoses Diagnosis Antepartum anemia complicating - Primary Anemia, antepartum documented in this encounter Care Teams Reconciliation Accountant Relationship Specialty Start Date End Date Wayne López MD [address] [facility] [place] [address] PCP - General Family Medicine 10/11/20 documented as of this encounter
--- OUTSIDE RECORDS SUMMARY | 2023-12-11 08:37 | External Medical Summary | Summary of Care ---
Author Name Unknown Organization [facility] Address [address] [place] [address] Phone [phone] Care Team Providers Care Adult School Counselor Name Role Phone Wayne López MD Primary Care Provider [phone] Reason for Visit * Reason Comments Return Visit Encounter Details Date Type Department Care Team (Late st Contact Info) Description 06/21/2023 10:45 AM EST Office Visit Gynecology/Obst[facility] s [facility] [address] [place] [address] Mya Schmitz CRNP [address] [facility] [address] Encounter for supervision of normal first in second trimester* Allergies Active Allergy Reactions Criticality Noted Date Comments Cheese 07/19/2019 Upset stomach, sleepy, low bp, itchy skin, rash on face, constipation, pale Garlic 07/19/2019 Rash, itchy, stomach upset documented as of this encounter (statuses as of 06/21/2023) Medications Medication Sig Dispensed Refills Start Date End Date Status KP Multivitamins 28-0.8 MG Oral Tablet Take by mouth. 0 Active Promethazine HCl 25 MG Oral Tablet (Phenergan)Indicatio ns:Encounter for supervision of normal first in first trimester,Nausea and vomiting during Take 1 Tablet by mouth every 6 hours as needed for Nausea. 30 Tablet 1 05/24/2023 Active Iron-Vitamin C 65-125 MG Oral Tablet (Vitron C) Take 1 Tablet by mouth in the morning. 90 Tablet 3 05/24/2023 Active Additional Information Patient not taking.Reported on 06/21/2023 documented as of this encounter (statuses as of 06/21/2023) Active Problems Problem Noted Date Diagnosed Date , normal first 05/24/2023 Alopecia areata 10/11/2020 Lactose intolerance 01/20/2020 Estimated Date of Delivery Comme nts Yes 12/05/2023 Based on last me nstrual period of 02/28/2023 documented as of this encounter (statuses as of 06/21/2023) Resolved Problems Problem Noted Date Diagnosed Date Resolved Date Keratosis pilaris 01/20/2020 09/15/2020 documented as of this encounter (statuses as of 06/21/2023) Immunizations Name Administration Dates Next Due Covid-19 [...] money to get more. Never true 04/26/2023 [place] Depression Scale Answer Date Recorded [place] Depression Scale Total 0 04/26/2023 The thought [...] Sign Reading Time Taken Comments Blood Pressure 94/58 06/21/2023 10:34 AM EST Pulse - - Temperature - - Respiratory Rate - - Oxygen Saturation - - Inhaled Oxygen Concentration - - Weight 53.1 kg (117 lb) 06/21/2023 10:34 AM EST Height 157.5 cm (5' 2") 06/21/2023 10:34 AM EST Body Mass Index 21.4 06/21/2023 10:34 AM EST documented in this encounter Progress Notes * Mya Schmitz CRNP - 06/21/2023 10:55 AM EST 16w1d Has had some back pain, right leg pain but improving. Tylenol helped pain. Nausea improving. Taking zofran only once a day. Feeling much better. Discussed vitamins. Did not get Vitron C after last appt, as it was not covered by insurance. Was not aware they could get OTC. Planning to switch to regular PNV with iron once bottle of gummy vitamins is gone. Advised this was fine. Discussed calcium intake. ?FM a few days ago, none since. No bleeding. Anatomy u/s with next visit. STORM Romero documented in this encounter Nursing Notes * Kimmie Fajardo LPN - 06/21/2023 10:40 AM EST 16w1d Back pain lately, right leg pain. Nausea very mild. documented in this encounter Plan of Treatment Upcoming Encounters Date Type Department Care Team (Late st Contact Info) Description 07/18/2023 11:45 AM EST Imaging Radiology [address] [place] [address] 07/18/2023 1:30 PM EST Office Visit Gynecology/Obstetrics [facility] [address] [place] [address] Mya Schmitz CRNP [address] [place] [address] Scheduled Orders Name Type Priority Associated Diagnoses Orde r Schedule US PREG SINGLE/1ST GEST, 14 WEEKS OR LATER Medical Imaging Routine Encounter for supervision of normal first in second trimester Expected: 07/22/2023 (Approximate), Expires: 07/22/2024 Health Maintenance Due Date Last Done Comments Hepatitis B (1 of 3 - 3-dose series) 1993 DTaP,Tdap,and Td Vaccines (1 - Tdap) 01/02/2012 Depression Screening 09/16/2021 09/16/2020 COVID-19 Vaccine [...] first documented in this encounter Care Teams Adult School Counselor Relationship Specialty Start Date End Date Wayne López MD [address] [place] [address] PCP - General Family Medicine 10/11/20 documented as of this encounter
--- OUTSIDE RECORDS SUMMARY | 2023-12-11 08:37 | External Medical Summary | Summary of Care ---
Author Name Unknown Organization [facility] Address [address] [place] [address] Phone [phone] Care Team Providers Care Container Repairer Name Role Phone Wayne López MD Primary Care Provider [phone] Reason for Visit * Reason Onset Date Comments Test Results 07/18/2023 Unexpected or In determinate Result Encounter Details Date Type Department Care Team (Late st Contact Info) Description 07/18/2023 Telephone Radiology [facility] [address] [facility] [address] Mya Schmitz CRNP [address] [place] [facility] [facility] [place] [address] Test Results ( Unexpected or Indeterminate... Allergies Active Allergy Reactions Criticality Noted Date Comments Cheese 07/19/2019 Upset stomach, sleepy, low bp, itchy skin, rash on face, constipation, pale Garlic 07/19/2019 Rash, itchy, stomach upset documented as of this encounter (statuses as of 07/19/2023) Medications Medication Sig Dispensed Refills Start Date [...] as needed for Nausea. 30 Tablet 1 06/23/2023 Active documented as of this encounter (statuses as of 07/19/2023) Active Problems Problem Noted Date Diagnosed Date , normal first 05/24/2023 Alopecia areata 10/11/2020 Lactose intolerance 01/20/2020 Estimated Date of Delivery Comme nts Yes 12/05/2023 Based on last me nstrual period of 02/28/2023 documented as of this encounter (statuses as of 07/19/2023) Resolved Problems Problem Noted Date Diagnosed Date Resolved Date Keratosis pilaris 01/20/2020 09/15/2020 documented as of this encounter (statuses as of 07/19/2023) Immunizations Name Administration Dates Next Due Covid-19 [...] money to get more. Never true 04/26/2023 [place] Depression Scale Answer Date Recorded [place] Depression Scale Total 0 04/26/2023 The thought [...] encounter Miscellaneous Notes * Telephone Encounter - Dawn Marcum LPN - 07/19/2023 7:36 AM EST Please see US result * Telephone Encounter - Linnea Mancia OSA - 07/18/2023 5:49 PM EST Hello- The radiologist discovered an unexpected or indeterminate [id number] and asks that you review the following report. IMPRESSION 1. Growth within normal limits utilizing FELIPE from initial scan. 2. Bilateral choroid plexus cysts. Maternal medicine consultation is recommended. Would reassess the profile at that time. Anatomy is otherwise unremarkable, as above. Study Type:US PREG SINGLE/1ST GEST, 14 WEEKS OR LATER Date of Study: 07/18/2023 Please respond to this encounter to acknowledge receipt of this message and take responsibility to ensure this report is reviewed. Thank you, SJ Liu Client Service [facility] documented in this encounter Plan of Treatment Upcoming Encounters Date Type Department Care Team (Late st Contact Info) Description 08/15/2023 1:30 PM EST Office Visit Gynecology/Obstetrics [facility] [address] [place] [address] Mya Schmitz CRNP [address] [place] [address] Health Maintenance Due Date Last Done Comments [...] filedocumented as of this encounter Care Teams Container Repairer Relationship Specialty Start Date End Date Wayne López MD [address] [place] [address] PCP - General Family Medicine 10/11/20 documented as of this encounter
--- OUTSIDE RECORDS SUMMARY | 2023-12-11 08:37 | External Medical Summary | Summary of Care ---
Author Name Unknown Organization [facility] Address [address] [place] [address] Phone [phone] Care Team Providers Care Shore Man Name Role Phone Wayne López MD Primary Care Provider [phone] Reason for Visit * Reason Comments Return Visit Encounter Details Date Type Department Care Team (Late st Contact Info) Description 07/18/2023 1:30 PM EST Office Visit Gynecology/Obstetric s [facility] [address] [place] [address] My[facility]mit[facility] [address] [facility] [address] Encounter for supervision of normal first in second trimester* Allergies Active Allergy Reactions Criticality Noted Date Comments Cheese 07/19/2019 Upset stomach, sleepy, low bp, itchy skin, rash on face, constipation, pale Garlic 07/19/2019 Rash, itchy, stomach upset documented as of this encounter (statuses as of 07/18/2023) Medications Medication Sig Dispensed Refills Start Date [...] as of this encounter (statuses as of 07/18/2023) Active Problems Problem Noted Date Diagnosed Date , normal first 05/24/2023 Alopecia areata 10/11/2020 Lactose intolerance 01/20/2020 Estimated Date of Delivery Comme nts Yes 12/05/2023 Based on last me nstrual period of 02/28/2023 documented as of this encounter (statuses as of 07/18/2023) Resolved Problems Problem Noted Date Diagnosed Date Resolved Date Keratosis pilaris 01/20/2020 09/15/2020 documented as of this encounter (statuses as of 07/18/2023) Immunizations Name Administration Dates Next Due Covid-19 [...] Date Recorded [place] Depression Scale Total 0 04/26/2023 The thought [...] Sign Reading Time Taken Comments Blood Pressure 102/48 07/18/2023 1:03 PM EST Pulse - - Temperature - - Respiratory Rate - - Oxygen Saturation - - Inhaled Oxygen Concentration - - Weight 54.8 kg (120 lb 12.8 oz) 07/18/2023 1:03 PM EST Height 157.5 cm (5' 2") 07/18/2023 1:03 PM EST Body Mass Index 22.09 07/18/2023 1:03 PM EST documented in this encounter Progress Notes * Mya Schmitz CRNP - 07/18/2023 1:23 PM EST 20w Feeling well overall. Still taking meds once a day to help with nausea. Some constipation/diarrhea,occasionally acid reflux. +FM. No bleeding or LOF. Discussed travel limitations: pt's cousin is getting in [place] on 08/18, pt was hoping to go but her is reluctant for her to travel. Anatomy u/s today, report pending. STORM Romero documented in this encounter Nursing Notes * Kimmie Fajardo LPN - 07/18/2023 1:09 PM EST 20w0d Anatomy scan completed today. documented in this encounter Plan of Treatment Upcoming Encounters Date Type Department Care Team (Late st Contact Info) Description 08/15/2023 1:30 PM EST Office Visit Gynecology/Obstetrics [facility] [address] [place] [address] Mya Schmitz CRNP [address] [place] [address] Health Maintenance Due Date Last Done Comments [...] first documented in this encounter Care Teams Shore Man Relationship Specialty Start Date End Date Wayne López MD [address] [place] [address] PCP - General Family Medicine 10/11/20 documented as of this encounter
--- OUTSIDE RECORDS SUMMARY | 2023-12-11 08:37 | External Medical Summary | Summary of Care ---
Author Name Unknown Organization [facility] Address [address] [place] [address] Phone [phone] Care Team Providers Care Leadite Heater Name Role Phone Wayne López MD Primary Care Provider [phone] [phone] Reason for Visit * Reason Onset Date Comments Test Results 07/18/2023 Unexpected or In determinate Result Encounter Details Date Type Department Care Team (Late st Contact Info) Description 07/18/2023 Telephone Radiology [facility] [address] [facility] [address] Mya Schmitz CRNP [address] [facility] [place] [address] Test Results ( Unexpected or Indeterminate... Allergies [...] money to get more. Never true 04/26/2023 [place] Depression Scale Answer Date Recorded [place] Depression Scale Total 0 04/26/2023 The thought [...] encounter Miscellaneous Notes * Telephone Encounter - Linnea Mancia OSA - 07/18/2023 5:49 PM EST Hello- The radiologist discovered an [id number] and asks that you review the following [...] reviewed. Thank you, SJ Liu Client Service Rep [facility] Medicine [place] documented in this encounter Plan of Treatment Upcoming Encounters Date Type Department Care Team (Late st Contact Info) Description 08/15/2023 1:30 PM EST Office [facility] [address] [place] [address] Mya Schmitz CRNP [address] [place] [address] Health Maintenance Due Date Last Done Comments [...] filedocumented as of this encounter Care Teams Leadite Heater Relationship Specialty Start Date End Date Wayne López MD [address] [place] [address] PCP - General Family Medicine 10/11/20 documented as of this encounter
--- OUTSIDE RECORDS SUMMARY | 2023-12-11 08:37 | External Medical Summary | Summary of Care ---
Author Name Unknown Organization [facility] Address [address] [place] [address] Phone [phone] Care Team Providers Care Mother Baby Rn Name Role Phone Wayne López MD Primary Care Provider [phone] Reason for Referral * Evaluate & Treat - Unlimited Visits (Within 10 days (routine)) - Authorized Specialty Diagnoses / Procedures Referred By Jean-Paul sparks Referred To Contact Obstetrics/Gynecology / Maternal Medicine Diagnoses Choroid plexus cyst of fetus affecting care of mother, antepartum, single or unspecified fetus Prema Navarro CRNP [address] [address] Referral ID Status Reason Start Date Expiration Date Visits Requested Visits Authorized [id number] Authorized Specialty Services Required 07/19/2023 999 999 Question Answer Referral Priority Within 10 days (routine) Has the patient had a viability scan? Yes Date performed 04/12/2023 Location performed Radiology Reason for referral Abnormal ultrasound findings Please provide additional details bilateral choroid plexus cysts. Radiologist recommending MFM referral Where should this appointment be scheduled? Fer Comments /Para: LMP: Patient's last menstrual period was 02/28/2023. Patient is . FELIPE: 12/05/2023, by Last Menstrual Period Pre-Gravid BMI: Could not be calculated Reason for Visit * Reason Onset Date Comments Test Results 07/18/2023 Unexpected or In determinate Result Encounter Details Date Type Department Care Team ([facility] Contact Info) Description 07/18/2023 Telephone Radiology [facility] [address] [facility] [address] Prema Navarro CRNP [address] [place] [address] Test Results ( Unexpected or Indeterminate... Allergies [...] money to get more. Never true 04/26/2023 [place] Depression Scale Answer Date Recorded [place] Depression Scale Total 0 04/26/2023 The thought [...] Miscellaneous Notes * Addendum Note - Prema Navarro CRNP - 07/19/2023 10:49 AM ESTAddended by: PREMA NAVARRO on: 07/19/2023 10:49 AM Modules accepted: Orders * Telephone Encounter - Prema Navarro CRNP - 07/19/2023 10:48 AM EST Referral placed. Please make sure she gets scheduled. * Telephone Encounter - Mirna Blake RN - 07/19/2023 10:37 AM EST Spoke with pt and her over speaker phone. They are aware and agreeable to the MFM consult. Message to Prema to place referral. * Telephone Encounter - Prema Navarro CRNP - 07/19/2023 9:20 AM EST Please make pt aware that she has bilateral choroid plexus cysts. This can be a normal variant of at this gestational age, but radiologist is recommending MFM referral. She had a low risk NIPT so I have low suspicion for genetic abnormality. If agreeable to MFM, please route back to me soI can place order. * Telephone Encounter - Dawn Marcum LPN - 07/19/2023 7:36 AM EST Please see US result * Telephone Encounter - Linnea Mancia OSA - 07/18/2023 5:49 PM EST Hello- The radiologist discovered an unexpected or indeterminate finding on Fnu [facility] ([id number]) and asks that you review the following [...] Thank you, SJ Liu Client Service Rep [facility] documented in this encounter Plan of Treatment Upcoming Encounters Date Type Department Care Team (Late st Contact Info) Description 08/01/2023 8:30 AM EST Office Visit Flitch Hanger OB Maternal Medicine [facility] Laine Bass [address] [place] [address] Dr [address] [facility] [address] Kolton Middleton MD [address] [facility] [address] 08/01/2023 8:30 AM EST Imaging Maternal Medicine [facility] Laine Bass [address] [place] [address] Dr [address] [place] [address] 08/15/2023 1:30 PM EST Office Visit Gynecology/Obstetrics [facility] [address] [place] [address] Prema Navarro CRNP [address] [place] [address] Scheduled Orders Name Type Priority Associated Diagnoses Orde r Schedule MFM US MATERNAL 1ST FETUS Medical Imaging Routine Choroid plexus cyst of fetus affecting care of mother, antepartum, single or unspecified fetus Expected: 07/19/2023, Expires: 08/16/2024 Scheduled Referrals Name Type Priority Associated Diagnoses [...] Primary documented in this encounter Care Teams Mother Baby Rn Relationship Specialty Start Date End Date Wayne López MD [address] [place] [address] PCP - General Family Medicine 10/11/20 documented as of this encounter
--- OUTSIDE RECORDS SUMMARY | 2023-12-11 08:37 | External Medical Summary | Summary of Care ---
Author Name Unknown Organization [facility] Address [address] [place] [address] Phone [phone] Care Team Providers Care Knotting Machine Operator Name Role Phone Wayne López MD Primary Care Provider [phone] Reason for Visit * Reason Onset Date Comments Referral 07/19/2023 Encounter Details Date Type Department Care Team (Late st Contact Info) Description 07/19/2023 Telephone Front End Drupal Developer Obstetrics Maternal Medicine, [place] [address] [place] [address] [place], Nurse Front End Drupal Developer [facility] [address] [place], [place] [id number] Referral Allergies Active Allergy Reactions Criticality Noted Date [...] money to get more. Never true 04/26/2023 [place] Depression Scale Answer Date Recorded [place] Depression Scale Total 0 04/26/2023 The thought [...] encounter Miscellaneous Notes * Telephone Encounter - Deborah Weldon OSA - 07/19/2023 11:24 AM EST Spoke with Fnu's . Appointment scheduled. Patient aware of date, time and location of Maternal Medicine appointment. * Telephone Encounter - Mirna Arias CCMA - 07/19/2023 11:05 AM EST Estimated Date of Delivery: 12/05/23 Please schedule for LONG SCAN, in time frame of within 2-3 weeks at location [facility] with the indication of bilateral choroid plexus cysts . Referring Provider: Mya Schmitz CRNP documented in this encounter Plan of Treatment Upcoming Encounters Date Type Department Care Team (Late st Contact Info) Description 08/01/2023 8:30 AM EST Office Visit Front End Drupal Developer OB Maternal Medicine [facility] Laine Bass [address] [place] [address] Dr [address] [place] [address] Kolton Middleton MD [address] [place] [address] 08/01/2023 8:30 AM EST Imaging Maternal Medicine [facility] Laine Bass [address] [place] [address] Dr [address] [place] [address] 08/15/2023 1:30 PM EST [facility] [address] [place] [address] Mya Schmitz CRNP [address] [place] [address] Health Maintenance Due Date Last Done Comments [...] filedocumented as of this encounter Care Teams Knotting Machine Operator Relationship Specialty Start Date End Date Wayne López MD [address] [place] [address] PCP - General Family Medicine 10/11/20 documented as of this encounter
--- OUTSIDE RECORDS SUMMARY | 2023-12-11 08:37 | External Medical Summary | Summary of Care ---
Author Name Unknown Organization [facility] Address [address] [place] [address] Phone [phone] Care Team Providers Care Restaurant Mgr Name Role Phone Wayne López MD Primary Care Provider [phone] Reason for Visit * Reason Onset Date Comments Test Results 07/18/2023 Unexpected or In determinate Result Encounter Details Date Type Department Care Team (Late st Contact Info) Description 07/18/2023 Telephone Radiology [facility] [address] [facility] [address] Mya Schmitz CRNP [address] [place] [facility] [address] Test Results ( Unexpected or Indeterminate... Allergies [...] money to get more. Never true 04/26/2023 [place] Depression Scale Answer Date Recorded [place] Depression Scale Total 0 04/26/2023 The thought [...] encounter Miscellaneous Notes * Telephone Encounter - Mirna Blake RN - 07/19/2023 10:37 AM EST Spoke with pt and her over speaker phone. They are aware and agreeable to the MFM consult. Message to Mya to place referral. * Telephone Encounter - Mya Schmitz CRNP - 07/19/2023 9:20 AM EST Please [...] discovered an unexpected or indeterminate finding on u [facility] ([id number]) and asks that you review the following [...] Thank you, SJ Liu Client Service Rep [facility] documented in this encounter Plan of Treatment Upcoming Encounters Date Type Department Care Team (Late st Contact Info) Description 08/15/2023 1:30 PM EST Office Visit Gynecology/Obstetrics [facility] [address] [place] [address] Mya Schmitz CRNP [address] [place] [address] Health Maintenance Due Date Last Done Comments [...] filedocumented as of this encounter Care Teams Restaurant Mgr Relationship Specialty Start Date End Date Wayne López MD [address] [place] [address] PCP - General Family Medicine 10/11/20 documented as of this encounter
--- OUTSIDE RECORDS SUMMARY | 2023-12-11 08:37 | External Medical Summary | Summary of Care ---
Author Name Unknown Organization [facility] Address [address] [place] [address] Phone [phone] Care Team Providers Care Dietetic Assistant Name Role Phone Wayne López MD Primary Care Provider [phone] Reason for Visit * Reason Onset Date Comments Medication Refill 07/23/2023 Encounter Details Date Type Department Care Team (Late st Contact Info) Description 07/23/2023 Refill Gynecology/Obstetrics [facility] [address] [place] [address] Prema Schmitz CRNP [address] [place] [address] Encounter for supervision of normal first in first trimester; Nausea and vomiting during Allergies Active Allergy Reactions Criticality Noted Date Comments Cheese 07/19/2019 Upset stomach, sleepy, low bp, itchy skin, rash on face, constipation, pale Garlic 07/19/2019 Rash, itchy, stomach upset documented as of this encounter (statuses as of 07/24/2023) Medications Medication Sig Dispensed Refills Start Date End Date Status KP Multivitamins 28-0.8 MG Oral Tablet Take by mouth. 0 Active Iron-Vitamin C 65-125 MG Oral Tablet (Vitron C) Take 1 Tablet by mouth in the morning. 90 Tablet 3 05/24/2023 Active Additional Information Patient not taking.Reported on 06/21/2023 Promethazine HCl 25 MG Oral Tablet (Phenergan)Indicati ons:Encounter for supervision of normal first in first trimester,Nausea and vomiting during Take 1 Tablet by mouth every 6 hours as needed for Nausea. 30 Tablet 1 07/24/2023 Active Promethazine HCl 25 MG Oral Tablet (Phenergan)Indicati ons:Encounter for supervision of normal first in first trimester,Nausea and vomiting during Take 1 Tablet by mouth every 6 hours as needed for Nausea. 30 Tablet 1 06/23/2023 4 Discontinue d(Refill) documented as of this encounter (statuses as of 07/24/2023) Active Problems Problem Noted Date Diagnosed Date , normal first 05/24/2023 Alopecia areata 10/11/2020 Lactose intolerance 01/20/2020 Estimated Date of Delivery Comme nts Yes 12/05/2023 Based on last me nstrual period of 02/28/2023 documented as of this encounter (statuses as of 07/24/2023) Resolved Problems Problem Noted Date Diagnosed Date Resolved Date Keratosis pilaris 01/20/2020 09/15/2020 documented as of this encounter (statuses as of 07/24/2023) Immunizations Name Administration Dates Next Due Covid-19 [...] money to get more. Never true 04/26/2023 [place] Depression Scale Answer Date Recorded [place] Depression Scale Total 0 04/26/2023 The thought [...] Telephone Encounter - Prema Schmitz CRNP - 07/24/2023 11:00 AM ESTSigned Prescriptions: Disp Refills Promethazine HCl 25 MG Oral Tablet (Phener*30 Tab*1 Sig: Take 1 Tablet by mouth every 6 hours as needed for Nausea. Authorizing Provider: PREMA SCHMITZ * Telephone Encounter - Kimmie Fajardo LPN - 07/24/2023 10:44 AM EST Pending Prescriptions: Disp Refills Promethazine HCl 25 MG Oral Tablet (Phener*30 Tab*1 Sig: Take 1Tablet by mouth every 6 hours as needed for Nausea. documented in this encounter Plan of Treatment Upcoming Encounters Date Type Department Care Team (Late st Contact Info) Description 08/01/2023 8:30 AM EST Office Visit Generator Repairer OB Maternal Medicine [facility] [address] [place] [address] Kolton Middleton MD [address] [place] [address] 08/01/2023 8:30 AM EST Imaging Maternal Medicine [facility] Laine Bass [address] [place] [address] Dr [address] [facility] [address] 08/15/2023 1:30 PM EST Office [facility] [address] [place] [address] Prema Schmitz CRNP [address] [place] [address] Health Maintenance Due Date Last Done Comments [...] during documented in this encounter Care Teams Dietetic Assistant Relationship Specialty Start Date End Date Wayne López MD [address] [place] [address] PCP - General Family Medicine 10/11/20 documented as of this encounter
--- OUTSIDE RECORDS SUMMARY | 2023-12-11 08:37 | External Medical Summary | Summary of Care ---
Author Name Unknown Organization [facility] Address [address] [place] [address] Phone [phone] Care Team Providers Care Glass Washer Name Role Phone Wayne López MD Primary Care Provider [phone] Reason for Visit * Reason Onset Date Comments Medication Refill 06/22/2023 Encounter Details Date Type Department Care Team (Late st Contact Info) Description 06/22/2023 Refill Gynecology/Obstetrics [facility] [address] [place] [address] Prema Schmitz CRNP [address] [place] [address] Encounter for supervision of normal first in first trimester; Nausea and vomiting during Allergies Active Allergy Reactions Criticality Noted Date Comments Cheese 07/19/2019 Upset stomach, sleepy, low bp, itchy skin, rash on face, constipation, pale Garlic 07/19/2019 Rash, itchy, stomach upset documented as of this encounter (statuses as of 06/23/2023) Medications Medication Sig Dispensed Refills Start Date [...] for Nausea. 30 Tablet 1 06/23/2023 Active Promethazine HCl 25 MG Oral Tablet (Phenergan)Indicati ons:Encounter for supervision of normal first in first trimester,Nausea and vomiting during Take 1 Tablet by mouth every 6 hours as needed for Nausea. 30 Tablet 1 05/24/2023 4 Discontinue d(Refill) documented as of this encounter (statuses as of 06/23/2023) Active Problems Problem Noted Date Diagnosed Date , normal first 05/24/2023 Alopecia areata 10/11/2020 Lactose intolerance 01/20/2020 Estimated Date of Delivery Comme nts Yes 12/05/2023 Based on last me nstrual period of 02/28/2023 documented as of this encounter (statuses as of 06/23/2023) Resolved Problems Problem Noted Date Diagnosed Date Resolved Date Keratosis pilaris 01/20/2020 09/15/2020 documented as of this encounter (statuses as of 06/23/2023) Immunizations Name Administration Dates Next Due Covid-19 [...] money to get more. Never true 04/26/2023 [place] Depression Scale Answer Date Recorded [place] Depression Scale Total 0 04/26/2023 The thought [...] Telephone Encounter - Prema Schmitz CRNP - 06/23/2023 2:54 PM ESTSigned Prescriptions: Disp Refills Promethazine HCl 25 MG Oral Tablet (Phener*30 Tab*1 Sig: Take 1 Tablet by mouth every 6 hours as needed for Nausea. Authorizing Provider: PREMA SCHMITZ * Telephone Encounter - Yeimy Cisse RN - 06/23/2023 1:52 PM ESTPending Prescriptions: Disp Refills Promethazine HCl 25 MG Oral Tablet (Phener*30 Tab*1 Sig: Take 1Tablet by mouth every 6 hours as needed for Nausea. documented in this encounter Plan of Treatment Upcoming Encounters Date Type Department Care Team (Late st Contact Info) Description 07/18/2023 11:45 AM EST Imaging Radiology [address] [place] [address] 07/18/2023 1:30 PM EST Office Visit Gynecology/Obstetrics [place] [address] [place] [address] Prema Schmitz CRNP [address] [place] [address] Health Maintenance Due Date Last Done Comments [...] during documented in this encounter Care Teams Glass Washer Relationship Specialty Start Date End Date Wayne López MD [address] [place] [address] PCP - General Family Medicine 10/11/20 documented as of this encounter
--- OUTSIDE RECORDS SUMMARY | 2023-12-11 08:37 | External Medical Summary | Summary of Care ---
Author Name Unknown Organization [facility] Address [address] [place] [address] Phone [phone] Care Team Providers Care Integrated Specialist Name Role Phone Wayne López MD Primary Care Provider [phone] Reason for Visit * Reason Onset Date Comments Test Results 07/18/2023 Unexpected or In determinate Result Encounter Details Date Type Department Care Team (Late st Contact Info) Description 07/18/2023 Telephone Radiology [facility] [address] [facility] [facility] [address] Mya Schmitz CRNP [address] [facility] [place] [address] Test Results ( Unexpected or Indeterminate... Allergies [...] money to get more. Never true 04/26/2023 [place] Depression Scale Answer Date Recorded [place] Depression Scale Total 0 04/26/2023 The thought [...] encounter Miscellaneous Notes * Telephone Encounter - Mya Schmitz CRNP [...] an unexpected or indeterminate finding on Fnu [facility] ([id number]) and asks that you review the following [...] Thank you, SJ Liu Client Service Rep [facility] documented in this encounter Plan of Treatment Upcoming Encounters Date Type Department Care Team (Late st Contact Info) Description 08/15/2023 1:30 PM EST Office Visit Gynecology/Obstetrics [facility] [address] [place] [address] Mya Schmitz CRNP [address] [place] [address] Health Maintenance Due Date Last Done Comments [...] filedocumented as of this encounter Care Teams Integrated Specialist Relationship Specialty Start Date End Date Wayne López MD [address] [place] [address] PCP - General Family Medicine 10/11/20 documented as of this encounter
--- OUTSIDE RECORDS SUMMARY | 2023-12-11 08:37 | External Medical Summary | Summary of Care ---
Author Name Unknown Organization [facility] Address [address] [place] [address] Phone [phone] Care Team Providers Care Gas Substation Operator Name Role Phone Wayne López MD Primary Care Provider [phone] Reason for Referral * Evaluate & Treat - Unlimited Visits (Within 10 days (routine)) - Authorized Specialty Diagnoses / Procedures Referred By Jean-Paul sparks Referred To Contact Obstetrics/Gynecology / Maternal Medicine Diagnoses Choroid plexus cyst of fetus affecting care of mother, antepartum, single or unspecified fetus Prema Schmitz CRNP [address] [employer] [place] [address] Referral ID Status Reason Start Date Expiration Date Visits Requested Visits Authorized [id number] Authorized Specialty Services Required 07/19/2023 999 999 [...] Encounter Details Date Type Department Care Team ([facility] Contact Info) Description 07/18/2023 Telephone Radiology [facility] [address] [facility] [address] Prema Schmitz CRNP [address] [place] [address] Test Results ( Unexpected or Indeterminate... Allergies [...] money to get more. Never true 04/26/2023 [place] Depression Scale Answer Date Recorded [place] Depression Scale Total 0 04/26/2023 The thought [...] Addendum Note - Prema Schmitz CRNP - 07/19/2023 10:49 AM ESTAddended by: PREMA SCHMITZ on: 07/19/2023 10:49 AM Modules accepted: Orders * Telephone Encounter - Prema Schmitz CRNP - 07/19/2023 10:48 AM EST Referral placed. Please make sure she gets scheduled. * Telephone Encounter - Mirna Blake RN - 07/19/2023 10:37 AM EST Spoke with pt and her over speaker phone. They are aware and agreeable to the MFM consult. Message to Prema to place referral. * Telephone Encounter - Prema Schmitz CRNP - 07/19/2023 9:20 AM EST [...] an unexpected or indeterminate finding on Fnu [facility] ([id number]) and asks that you review the following [...] reviewed. Thank you, SJ Liu Client Service [facility] documented in this encounter Plan of Treatment Upcoming Encounters Date Type Department Care Team (Late st Contact Info) Description 08/15/2023 1:30 PM EST Office Visit Gynecology/Obstetrics [facility] [address] [place] [address] Prema Schmitz CRNP [address] [place] [address] Scheduled Orders Name Type Priority Associated Diagnoses [...] Primary documented in this encounter Care Teams Gas Substation Operator Relationship Specialty Start Date End Date Wayne López MD [address] [place] [address] PCP - General Family Medicine 10/11/20 documented as of this encounter
[2023-12-11] MEDS ORDERED: LIDOCAINE 1% LOCAL 20 ML VIAL INFIL PRN (09:44)
--- NOTE | 2023-12-11 09:50 | Obstetrical Progress Note ---
Date of Service December 11, 2023 Assessment & Plan (1) Prolonged gestation: Plan: Induction day #1 Met pt and spouse Reviewed plan with both- Agreed to Cytotec Reviewed PNC with both FHR; CAT1 VE; /- posterior Ctx/ Minimal Admission and Anticipated Discharge Date Admission Date: December 11, 2023 Results & Data Vital Signs (Past 12 Hours) Vital Signs Temp Pulse Resp BP 12/11/23 08:21 106 H 112/70 12/11/23 08:16 36.7 C 106 H 18 112/70
[2023-12-11 10:12] LABS: Hematocrit (blood only) 36.8 % (37.0-47.0); Hemoglobin 11.8 g/dl (12.0-16.0); Mean Corpuscular Hemoglobin 26.3 pg (25.0-34.0); Mean Corpuscular Hgb Conc 32.1 g/dL (32.0-36.0); Mean Corpuscular Volume 82.1 fL (80.0-100.0); Mean Platelet Volume 11.9 fL (9.4-12.4); Platelet Count 224 K/uL (130-400); RDW Standard Deviation 54.1 fL (36.4-46.3); Red Blood Count 4.48 M/uL (4.20-5.40); White Blood Count 9.79 K/ul (4.8-10.8)
[2023-12-11] MEDS: miSOPROStoL 50 MCG TAB PO SCH (11:02)
[2023-12-11] MEDS ORDERED: miSOPROStoL 50 MCG TAB PO SCH (12:00)
[2023-12-11] MEDS: LACTATED RINGER'S 1,000 ML IV PRN (16:49)
[2023-12-11] MEDS ORDERED: ePHEDrine sulfate 50 MG/ML AMP IV PRN (17:01)
[2023-12-11] MEDS ORDERED: NALOXONE HCL 0.4 MG/1 ML VIAL/CARP IV PRN (17:01)
[2023-12-11] MEDS ORDERED: BUPIVACAINE 0.25% PF 30 ML VIAL EPI PRN (17:01)
[2023-12-11] MEDS ORDERED: ROPIVACAINE 0.5% PF 5 MG/ML 20 ML VIAL EPI PRN (17:01)
[2023-12-11] MEDS ORDERED: diphenhydrAMINE 50 MG/ML VIAL IV PRN (17:01)
[2023-12-11] MEDS ORDERED: NALOXONE HCL 1 MG in SODIUM CHLORIDE 0.9% 1,000 ML IV PRN (17:01)
[2023-12-11] MEDS ORDERED: LIDOCAINE 2% MPF LOCAL 5 ML VIAL EPI PRN (17:01)
[2023-12-11] MEDS ORDERED: SODIUM CHLORIDE 0.9% PF INJ 10 ML VIAL EPI PRN (17:01)
[2023-12-11] MEDS ORDERED: fentANYL 2 MCG/ML BUPIVacaine 0.125%-NSS 100ML BAG EPI PRN (17:01)
[2023-12-11] MEDS ORDERED: NALBUPHINE HCL 5 MG in SYRINGE 0 ML IV PRN (17:01)
[2023-12-11] MEDS ORDERED: fentaNYL citrate PF 100 MCG/2 ML VIAL EPI PRN (17:01)
--- NOTE | 2023-12-11 17:01 | Anesthesiology Consultation ---
Date of Service December 11, 2023 Assessment & Plan (1) Encounter for pre-operative examination: Chart Review Chart Review: Patient NOT seen in Pre Admission Testing and Acceptable Risk for Labor Epidural Consults Requested none History Height/Weight Height: 5 ft 2 in Weight: 65.771 kg Allergies Allergy/AdvReac Type Severity Reaction Status Date / Time cheese Allergy Itching Verified 12/11/23 08:12 garlic Allergy Rash Verified 12/11/23 08:12 Medications Home Medications Medication Instructions Recorded Confirmed Last Taken cyanocobalamin (vitamin B-12) mcg 12/11/23 12/10/23 1,000 mcg tablet (Vitamin B-12) prenat.vits,stanley,[id number] tab 12/11/23 12/10/23 promethazine 25 mg tablet 25 mg PO Q6H PRN Nausea 12/11/23 12/11/23 12/10/23 Active Medications Generic Name Dose Route Start Last Admin Trade Name Freq PRN Reason Stop Dose Admin Lactated Ringer's 1,000 mls @ 125 mls/hr 12/11/23 09:44 12/11/23 16:49 Lr IV 12/13/23 09:43 999 mls/hr .Q8H PRN Administration L&D Protocol Protocol Misoprostol 50 mcg 12/11/23 10:49 12/11/23 11:02 Misoprostol 50 Mcg Tab PO 01/10/24 10:48 50 mcg Q4H REBECCA Administration Past Surgical History Surgical History History of hysteroscopy Social History Smoking Status: Never smoker Hx Alcohol Use: No Hx Substance Use: No Physical Exam Vital Signs Last Vital Signs Temp 98.1 F 12/11/23 15:27 Pulse 75 12/11/23 15:28 Resp 18 12/11/23 08:16 BP 134/62 12/11/23 15:28 Testing Laboratory Results 12/11/23 09:56
[2023-12-11] MEDS: fentANYL 2 MCG/ML BUPIVacaine 0.125%-NSS 100ML BAG ONE (17:40)
[2023-12-11] MEDS: LIDOCAINE 2%/EPINEPHRINE 1:200,000 20 ML PF ONE (17:44)
[2023-12-11] MEDS: BUPIVACAINE 0.25% PF 30 ML VIAL ONE (17:44)
[2023-12-11] MEDS: BUPIVACAINE 0.25% PF 30 ML VIAL EPI STA (17:45)
[2023-12-11] MEDS: fentaNYL citrate PF 100 MCG/2 ML VIAL ONE (17:45)
[2023-12-11] MEDS: fentaNYL citrate PF 100 MCG/2 ML VIAL EPI STA (17:45)
[2023-12-11] MEDS: LIDOCAINE 2%/EPINEPHRINE 1:200,000 20 ML PF EPI STA (17:45)
[2023-12-11] MEDS: SODIUM CHLORIDE 0.9% PF INJ 10 ML VIAL ONE (17:45)
[2023-12-11] MEDS: SODIUM CHLORIDE 0.9% PF INJ 10 ML VIAL EPI STA (17:46)
--- NOTE | 2023-12-11 19:00 | Obstetrical Progress Note ---
Date of Service December 11, 2023 Assessment & Plan (1) Prolonged gestation: Plan: Pt doing well Received epidural analgesia FHR; CAT1 Ctx ; 2-3min VE 10/100/-1 AROM with amnio hook- Clear anticipate VD Admission and Anticipated Discharge Date Admission Date: December 11, 2023 Results & Data Vital Signs (Past 12 Hours) Vital Signs Temp Pulse Resp BP Pulse Ox 12/11/23 18:54 84 114/60 12/11/23 18:52 81 100 12/11/23 18:47 92 H 100 12/11/23 18:45 18 12/11/23 18:45 18 12/11/23 18:42 98 H 100 12/11/23 18:39 85 91 12/11/23 18:37 100 H 100 12/11/23 18:32 85 100 12/11/23 18:30 18 12/11/23 18:30 18 12/11/23 18:28 36.8 C 12/11/23 18:27 99 H 100 12/11/23 18:22 105 H 100 12/11/23 18:17 97 H 100 12/11/23 18:15 18 12/11/23 18:15 18 12/11/23 18:12 94 H 100 12/11/23 18:07 83 100 12/11/23 18:04 105 H 115/65 12/11/23 18:02 83 100 12/11/23 18:01 77 114/58 L 12/11/23 18:00 18 12/11/23 18:00 18 12/11/23 17:57 73 100 12/11/23 17:55 76 115/62 12/11/23 17:52 97 H 100 12/11/23 17:47 76 107/65 100 12/11/23 17:44 71 105/63 12/11/23 17:42 71 100 12/11/23 17:41 72 117/62 12/11/23 17:38 75 113/58 L 12/11/23 17:37 68 100 12/11/23 17:32 67 100 12/11/23 17:27 68 98 12/11/23 17:22 76 100 12/11/23 17:17 81 100 12/11/23 17:12 69 100 12/11/23 17:07 64 100 12/11/23 17:02 65 99 12/11/23 15:28 75 134/62 12/11/23 15:27 36.7 C 12/11/23 11:03 36.4 C L 80 118/70 12/11/23 08:21 106 H 112/70 12/11/23 08:16 36.7 C 106 H 18 112/70
[2023-12-11] MEDS: ePHEDrine sulfate 50 MG/ML AMP ONE (19:11)
[2023-12-11] MEDS ORDERED: OXYTOCIN 30 UNITS/NSS 30 UNITS/500 ML BAG IV PRN (22:12)
--- NOTE | 2023-12-11 22:13 | Obstetrical Progress Note ---
Date of Service December 11, 2023 Assessment & Plan (1) Prolonged gestation: Plan: Doing well VE; 10/100/-1 Ctx; irregular No urge to push Starting Pitocin augmentation Admission and Anticipated Discharge Date Admission Date: December 11, 2023 Results & Data Vital Signs (Past 12 Hours) Vital Signs Temp Pulse Resp BP Pulse Ox 12/11/23 22:09 110 H 91 12/11/23 22:08 105 H 100 12/11/23 22:03 37.4 C 18 12/11/23 22:03 95 H 100 12/11/23 21:58 94 H 98 12/11/23 21:54 90 105/51 L 12/11/23 21:53 96 H 100 12/11/23 21:48 92 H 100 12/11/23 21:43 97 H 100 12/11/23 21:39 108 H 103/55 L 12/11/23 21:38 98 H 100 12/11/23 21:33 94 H 100 12/11/23 21:28 97 H 100 12/11/23 21:25 94 H 99/50 L 12/11/23 21:23 104 H 100 12/11/23 21:18 115 H 100 12/11/23 21:13 90 100 12/11/23 21:12 87 12/11/23 21:12 86 113/56 L 90 12/11/23 21:08 108 H 100 12/11/23 21:03 85 100 12/11/23 20:58 85 100 12/11/23 20:54 80 111/60 12/11/23 20:53 83 100 12/11/23 20:48 81 100 12/11/23 20:43 97 H 100 12/11/23 20:41 87 93/48 L 12/11/23 20:40 100 H 87 L 12/11/23 20:38 92 H 100 12/11/23 20:33 94 H 100 12/11/23 20:28 92 H 100 12/11/23 20:23 83 91/52 L 100 12/11/23 20:18 102 H 100 12/11/23 20:13 87 100 12/11/23 20:09 96 H 91/53 L 12/11/23 20:08 90 100 12/11/23 20:03 88 100 12/11/23 19:58 107 H 100 12/11/23 19:54 78 109/68 12/11/23 19:53 91 H 100 12/11/23 19:48 89 100 12/11/23 19:43 96 H 100 12/11/23 19:39 112 H 101/63 12/11/23 19:38 113 H 100 12/11/23 19:33 93 H 100 12/11/23 19:27 94 H 100 12/11/23 19:24 90 107/60 12/11/23 19:22 75 100 12/11/23 19:17 90 100 12/11/23 19:12 85 100 12/11/23 19:09 90 106/63 12/11/23 19:07 82 100 12/11/23 19:05 36.6 C 18 12/11/23 19:02 108 H 100 12/11/23 18:57 85 100 12/11/23 18:54 84 114/60 12/11/23 18:52 81 100 12/11/23 18:47 92 H 100 12/11/23 18:45 18 12/11/23 18:45 18 12/11/23 18:42 98 H 100 12/11/23 18:39 85 91 12/11/23 18:37 100 H 100 12/11/23 18:32 85 100 12/11/23 18:30 18 12/11/23 18:30 18 12/11/23 18:28 36.8 C 12/11/23 18:27 99 H 100 12/11/23 18:22 105 H 100 12/11/23 18:17 97 H 100 12/11/23 18:15 18 12/11/23 18:15 18 12/11/23 18:12 94 H 100 12/11/23 18:07 83 100 12/11/23 18:04 105 H 115/65 12/11/23 18:02 83 100 12/11/23 18:01 77 114/58 L 12/11/23 18:00 18 12/11/23 18:00 18 12/11/23 17:57 73 100 12/11/23 17:55 76 115/62 12/11/23 17:52 97 H 100 12/11/23 17:47 76 107/65 100 12/11/23 17:44 71 105/63 12/11/23 17:42 71 100 12/11/23 17:41 72 117/62 12/11/23 17:38 75 113/58 L 12/11/23 17:37 68 100 12/11/23 17:32 67 100 12/11/23 17:27 68 98 12/11/23 17:22 76 100 12/11/23 17:17 81 100 12/11/23 17:12 69 100 12/11/23 17:07 64 100 12/11/23 17:02 65 99 12/11/23 15:28 75 134/62 12/11/23 15:27 36.7 C 12/11/23 11:03 36.4 C L 80 118/70
[2023-12-12] MEDS: OXYTOCIN 30 UNITS/NSS 30 UNITS/500 ML BAG IV PRN (02:50)
[2023-12-12] MEDS: METHYLERGONOVINE MALEATE 0.2 MG/ML AMP IM ONE (02:52)
[2023-12-12] MEDS: miSOPROStoL 200 MCG TAB PR ONE (03:07)
[2023-12-12] MEDS ORDERED: OXYTOCIN 30 UNITS/NSS 30 UNITS/500 ML BAG IV PRN (03:17)
[2023-12-12] MEDS ORDERED: bisacodyL 10 MG SUPP PR PRN (03:17)
[2023-12-12] MEDS ORDERED: ACETAMINOPHEN 325 MG TAB PO PRN (03:17)
[2023-12-12] MEDS ORDERED: HYDROCORTISONE ACETATE 25 MG SUPP PR PRN (03:17)
--- NOTE | 2023-12-12 03:21 | Delivery Summary ---
Vaginal Delivery Summary Date of Service December 12, 2023 Vaginal Delivery Summary DELIVERY NOTE Patient delivered a live infant male in left occiput anterior presentation there was nuchal cord X1 which was easily reduced. was delivered and placed on mother's abdomen. Delayed cord clamping was performed. Cord blood is obtained Cord gasses are obtained Meconium is absent Placenta is spontaneously delivered. Placenta appears grossly normal and has 3 vessel cord Inspection of the perineum showed a second-degree midline laceration. Laceration is repaired in layers with 2-0 Vicryl in layers Rectal exam post repair showed good sphincter tone no sutures palpated in the rectum. Quantitative blood loss is 233 cc per Infants weight and scores are in the pediatric record Mother and baby are stable in in the recovery
[2023-12-12] MEDS: DIPHTHER/TETAN/PERTUS Vaccine (Tdap, Adol/Adult) 0.5mL IM ONE (03:32)
[2023-12-12] MEDS: ONDANSETRON 4 MG OD TAB PO PRN (03:46)
[2023-12-12 03:54] LABS: Base Excess Cord Venous Blood -7.2 mEq/L (-7.7-1.9); Cord Venous Blood HCO3 20 mmol/L (18.4-26.8); Cord Venous Blood PCO2 44 mmHg (30.4-57.2); Cord Venous Blood PO2 21 mmHg (14.1-43.3); Cord Venous Blood pH 7.26 (7.20-7.44); O2 Saturation Cord Venous Bld < 60.0 % (<68)
[2023-12-12] MEDS: DOCUSATE SODIUM 100 MG CAP PO SCH (08:38)
[2023-12-12] MEDS: PRENATAL VITAMIN 1 TAB PO SCH (08:38)
[2023-12-12] MEDS: BENZOCAINE 20% SPRY 85 APPLN/85 GM CAN EXT PRN (10:17)
[2023-12-12] MEDS ORDERED: Nursing to Pharmacy Communication SCH (15:15)
[2023-12-12] MEDS: IBUPROFEN 600 MG TAB PO PRN (21:02)
[2023-12-12] MEDS ORDERED: miSOPROStoL 200 MCG TAB ONE (22:18)
[2023-12-13 06:27] LABS: Hematocrit (blood only) 31.2 % (37.0-47.0); Hemoglobin 10.1 g/dl (12.0-16.0); Mean Corpuscular Hemoglobin 27.1 pg (25.0-34.0); Mean Corpuscular Hgb Conc 32.4 g/dL (32.0-36.0); Mean Corpuscular Volume 83.6 fL (80.0-100.0); Platelet Count 178 K/uL (130-400); RDW Coefficient of Variation 18.2 % (11.5-14.5); RDW Standard Deviation 56.1 fL (36.4-46.3); Red Blood Count 3.73 M/uL (4.20-5.40); White Blood Count 16.33 K/ul (4.8-10.8)
--- NOTE | 2023-12-13 12:05 | Obstetrical Progress Note ---
Date of Service December 13, 2023 Assessment & Plan (1) Normal course: Pt doing well no complaint disch tomorrow Results & Data Vital Signs (Past 12 Hours) Vital Signs Temp Pulse Resp BP Pulse Ox O2 Del Method 12/13/23 08:13 36.6 C 60 18 117/82 98 Room Air 12/13/23 08:13 Room Air
[2023-12-13] MEDS: bisacodyL 5 MG TABEC PO SCH (20:30)
[2023-12-14 07:30] LABS: Basophils # (auto) 0.04 K/uL (0.00-0.20); Basophils % (auto) 0.4 %; Eosinophils # (auto) 0.23 K/uL (0.00-0.50); Eosinophils % (auto) 2.1 %; Hematocrit (blood only) 33.9 % (37.0-47.0); Hemoglobin 10.7 g/dl (12.0-16.0); Immature Granulocytes # (auto) 0.07 K/uL (0.01-0.20); Immature Granulocytes % (auto) 0.6 %; Lymphocytes # (auto) 2.46 K/uL (1.20-3.40); Lymphocytes % (auto) 22.2 %; Mean Corpuscular Hemoglobin 26.8 pg (25.0-34.0); Mean Corpuscular Hgb Conc 31.6 g/dL (32.0-36.0); Mean Corpuscular Volume 84.8 fL (80.0-100.0); Mean Platelet Volume 11.8 fL (9.4-12.4); Monocytes # (auto) 0.65 K/uL (0.11-0.59); Monocytes % (auto) 5.9 %; Neutrophils # (auto) 7.65 K/uL (1.40-6.50); Neutrophils % (auto) 68.8 %; Platelet Count 213 K/uL (130-400); RDW Standard Deviation 56.2 fL (36.4-46.3)
--- NOTE | 2023-12-14 09:45 | Obstetrical Progress Note ---
Date of Service December 14, 2023 Assessment & Plan Admission and Anticipated Discharge Date Admission Date: December 11, 2023 Subjective Patient is seen and examined. She feels well, no complaints. Ambulating without dizziness Voiding without difficulty Tolerating regular diet with out N&V Bleeding is minimal No fever/ chills/ CP/ SOB/ N&V/ Leg pain Breast and bottle feeding without problems Lab Results 12/11/23 12/12/23 12/13/23 Range/Units 09:56 03:49 05:51 WBC 9.79 16.33 H (4.8-10.8) K/ul RBC 4.48 3.73 L (4.20-5.40) M/uL Hgb 11.8 L 10.1 L (12.0-16.0) g/dl Hct 36.8 L 31.2 L (37.0-47.0) % MCV 82.1 83.6 (80.0-100.0) fL MCH 26.3 27.1 (25.0-34.0) pg MCHC 32.1 32.4 (32.0-36.0) g/dL RDW Std Deviation 54.1 H 56.1 H (36.4-46.3) fL RDW Coeff of Farhad 18.0 H 18.2 H (11.5-14.5) % Plt Count 224 178 (130-400) K/uL MPV 11.9 12.0 (9.4-12.4) fL Immature Gran % (Auto) % Neut % (Auto) % Lymph % (Auto) % Keith % (Auto) % Eos % (Auto) % Baso % (Auto) % Neut # (Auto) (1.40-6.50) K/uL Lymph # (Auto) (1.20-3.40) K/uL Keith # (Auto) (0.11-0.59) K/uL Eos # (Auto) (0.00-0.50) K/uL Baso # (Auto) (0.00-0.20) K/uL Immature Gran # (Auto) (0.01-0.20) K/uL Cord VBG pH 7.26 (7.20-7.44) Cord VBG pCO2 44 (30.4-57.2) mmHg Cord VBG pO2 21 (14.1-43.3) mmHg Cord VBG HCO3 20 (18.4-26.8) mmol/L Cord VBG Base Excess -7.2 (-7.7-1.9) mEq/L Cord VBG O2 Sat < 60.0 (<68) % Blood Gas Comments [facility] 12/14/23 Range/Units 06:53 WBC 11.10 H (4.8-10.8) K/ul RBC 4.00 L (4.20-5.40) M/uL Hgb 10.7 L (12.0-16.0) g/dl Hct 33.9 L (37.0-47.0) % MCV 84.8 (80.0-100.0) fL MCH 26.8 (25.0-34.0) pg MCHC 31.6 L (32.0-36.0) g/dL RDW Std Deviation 56.2 H (36.4-46.3) fL RDW Coeff of Farhad 18.0 H (11.5-14.5) % Plt Count 213 (130-400) K/uL MPV 11.8 (9.4-12.4) fL Immature Gran % (Auto) 0.6 % Neut % (Auto) 68.8 % Lymph % (Auto) 22.2 % Keith % (Auto) 5.9 % Eos % (Auto) 2.1 % Baso % (Auto) 0.4 % Neut # (Auto) 7.65 H (1.40-6.50) K/uL Lymph # (Auto) 2.46 (1.20-3.40) K/uL Keith # (Auto) 0.65 H (0.11-0.59) K/uL Eos # (Auto) 0.23 (0.00-0.50) K/uL Baso # (Auto) 0.04 (0.00-0.20) K/uL Immature Gran # (Auto) 0.07 (0.01-0.20) K/uL Cord VBG pH (7.20-7.44) Cord VBG pCO2 (30.4-57.2) mmHg Cord VBG pO2 (14.1-43.3) mmHg Cord VBG HCO3 (18.4-26.8) mmol/L Cord VBG Base Excess (-7.7-1.9) mEq/L Cord VBG O2 Sat (<68) % Blood Gas Comments Vital Signs Temp Pulse Resp BP Pulse Ox O2 Del Method 12/14/23 07:46 36.3 C L 81 18 119/79 98 Room Air 12/13/23 23:15 36.7 C 82 19 109/72 99 Room Air PE: General: Alert, orientedx3, NAD Abd: soft, NT, fundus firm, below Umbilicus Perineum intact, Lochia rubra minimal Ext; NT, no edema AP: 28 yo s/p , ppd# 2 VSS Afebrile doing well Continue routine care All questions were answered D/C home , f/u in office Results & Data Vital Signs (Past 12 Hours) Vital Signs Temp Pulse Resp BP Pulse Ox O2 Del Method 12/14/23 07:46 36.3 C L 81 18 119/79 98 Room Air 12/13/23 23:15 36.7 C 82 19 109/72 99 Room Air
--- NOTE | 2023-12-15 13:44 | Coding Query ---
CODING QUERY To promote full compliance with coding requirements relating to patient care, provider participation is requested in all cases of it service technician uncertainty. Please assist us with the question(s) below: Coding Question(s): Please specify weeks of gestation. Physician's Response(s): 41.1 weeks Thank you Radha Du Principal Diagnosis: "that condition established after study, to be chiefly responsible for occasioning the admission of the patient to the hospital for care." Co-Existing Principal Diagnosis: "when two or more diagnoses equally meet the criteria for principal diagnosis as determined by the circumstances of admission, diagnostic work up, and/or therapy provided, and the Alphabetic Index, Tabular List, or another coding guideline does not provide sequencing direction, any one of the diagnoses may be sequenced first." "When the physician has documented what appears to be a current diagnosis in the body of the record, but has not included the diagnosis in the final diagnostic statement, the physician should be asked whether the diagnosis should be added." (Source [facility]oding [facility] 2 QTR90. p3-4) EUNICE
== END 2023-12-14 15:23 | disposition home health service (06) | DRG 807 ==
LOC: 4S1 07:54 → 4E2 12-12 06:15